=== PATIENT | male | born 1950 | race Caucasian/White ===

== ENCOUNTER 2016-10-31 12:51 | Inpatient (IN) ==
[2016-10-31] MEDS ORDERED: Aspirin 325 MG TABLET PO ONE (12:52)
--- NOTE | 2016-10-31 12:56 | Emergency Department Note ---
Disposition Clinical Impression: Atrial fibrillation Qualifiers: Atrial fibrillation type: persistent Qualified Code(s): I48.1 - Persistent atrial fibrillation Disposition: Admitted As Inpatient Condition: Fair Referrals: NO,PCP [Non-Partnered Physician] - Time of Disposition: 15:23 Arrhythmia/Palpitations HPI - General Chief Complaint: ED Shortness of Breath/Dyspnea Stated Complaint: palpitations Time Seen by Provider: 10/31/16 12:51 Source: patient, family Mode of arrival: wheelchair Limitations: no limitations Nursing Notes Reviewed: Yes Vital Signs Reviewed: Yes - History of Present Illness HPI Narrative: Patient presents to the ED with the chief complaint of dyspnea and palpitations. Patient has no known history of atrial fibrillation states he woke up this morning and felt very short of breath. He went into his primary care physician' s office, who performed an EKG and noticed he was in A. fib. They wanted to send him to the hospital via EMS. However, he declined and states that he would go himself if his symptoms get worse. States that he went home and she continued to fill extremely short of breath like he could not catch his breath at all and decided to come in. He denies any chest pain but states that he was having some burning type sensation in his chest. - Related Data Home Medications Medication Instructions Recorded Confirmed Albuterol Sulfate [Albuterol 2 puff IH Q4H PRN 03/01/16 10/31/16 Inhaler] Aspirin [Lo-Dose Aspirin EC] 81 mg PO DAILY 03/01/16 10/31/16 Indapamide [Lozol] 2.5 mg PO DAILY 03/01/16 10/31/16 Propranolol [Inderal] 20 mg PO TID 03/01/16 10/31/16 Sertraline [Zoloft] 25 mg PO DAILY 03/01/16 10/31/16 Allopurinol [Zyloprim] 300 mg PO DAILY 10/31/16 10/31/16 Chlorphen/Pseudoeph/Ibuprofen 1 tab PO BID PRN 10/31/16 10/31/16 [Advil Allergy Sinus Caplet] Ibuprofen [Motrin] 600 mg PO Q6HR PRN 10/31/16 10/31/16 Montelukast [Singulair] 10 mg PO DAILY 10/31/16 10/31/16 Potassium Chloride [Klor-Con 10] 10 meq PO DAILY 10/31/16 10/31/16 Trazodone HCl 100 mg PO HS PRN 10/31/16 10/31/16 Allergies Allergy/AdvReac Type Severity Reaction Status Date / Time cephalexin [From Keflex] Allergy Swelling Verified 03/01/16 08:46 of Lip/Tongue/Throat acetaminophen [From Tylenol] AdvReac See Verified 03/01/16 08:46 Comments All systems ED: reviewed and negative except as stated. Eyes: Denies: vision change Cardiovascular: Reports: chest pain, palpitations, dyspnea on exertion Respiratory: Reports: dyspnea Gastrointestinal: Reports: nausea. Denies: abdominal pain, vomiting Integumentary: Denies: rash Neurological: Denies: headache Past Medical History - Past Medical History Attestation: Yes The following information was validated with the patient. Source: patient Medical history: Reports: asthma, hypertension Psychiatric history: Reports: no psych history - Social History Smoking Status: Former smoker Smokeless Tobacco Status: Yes Alcohol use: Reports: none Drug use: Reports: none Physical Exam - General Limitations: no limitations General appearance: alert, in distress (mild, appears SOB) - Head Head exam: atraumatic, normocephalic, normal inspection - Eye Eye exam: Present: normal appearance, PERRL, EOMI - ENT ENT exam: normal exam, normal oropharynx, mucous membranes moist - Neck Neck exam: Present: normal inspection, full ROM, trachea midline - Chest Chest inspection: Present: normal inspection, symmetric chest wall rise - Respiratory Respiratory exam: Present: normal lung sounds bilaterally. Absent: respiratory distress (but is tachypnic ) - Cardiovascular Cardiovascular exam: Present: tachycardia, irregular rhythm, normal heart sounds. Absent: regular rate, normal rhythm - Abdominal Exam Abdominal exam: Present: soft, Non-Tender. Absent: tenderness, distention, guarding, rebound, rigidity - Extremities Exam Extremities exam: Present: normal inspection, full ROM. Absent: tenderness, pedal edema - Neurological Exam Neurological exam: Present: alert, oriented X3 - Psychiatric Psychiatric exam: Present: anxious - Skin Skin exam: Present: warm, dry, intact, normal color Course - Reevaluation(s) Reevaluation #1: Lab work is back. D-dimer was elevated, so we ordered a CTA to rule out PE given his fast respiratory rate. CT is negative for PE. Did show pulmonary nodule. Patient admitted. The hospitalist service for new onset A. fib. Vital Signs Temperature 98.1 F 10/31/16 12:52 Pulse Rate 85 10/31/16 12:52 Respiratory Rate 18 10/31/16 12:52 Blood Pressure 139/94 10/31/16 12:52 O2 Sat by Pulse Oximetry 98 10/31/16 12:52 Temperature 98.1 F 10/31/16 12:52 Pulse Rate 95 10/31/16 14:54 Respiratory Rate 16 10/31/16 14:54 Blood Pressure 100/89 10/31/16 14:54 O2 Sat by Pulse Oximetry 99 10/31/16 14:54 Oxygen Delivery Oxygen Delivery Room Air Arrhythmia/Palpitations - Medical Records Medical records reviewed: Yes I reviewed the patient's medical records. - Lab Data Lab results reviewed: Yes I reviewed the patient's lab results. Result diagrams: 10/31/16 13:00 10/31/16 13:00 Lab Results 10/31/16 10/31/16 10/31/16 Range/Units 13:00 13:00 13:00 WBC 9.8 (4.3-11.1) K/mcL RBC 5.02 (4.19-5.50) M/mcL Hgb 15.7 (12.9-16.9) g/dL Hct 44.4 (37.5-50.1) % MCV 88.4 (83.0-100.0) fL MCH 31.3 (28.0-33.3) pg MCHC 35.4 (31.6-35.5) g/dL RDW 14.2 (11.5-14.5) % Plt Count 241 (140-400) K/mcL MPV 11.8 (9.4-12.4) fL Immature Gran % 0.3 (0-4) % Seg Neutrophils % 64.7 % Lymphocytes % 27.9 % Monocytes % 5.6 % Eosinophils % 1.1 % Basophils % 0.4 % Neutrophils # 6.3 (1.6-8.9) K/mcL Lymphocytes # 2.7 (0.6-4.6) K/mcL Monocytes # 0.6 (0.0-1.3) K/mcL Eosinophils # 0.1 (0.0-0.6) K/mcL Basophils # 0.0 (0.0-0.2) K/mcL PT 11.1 (9.4-12.1) Seconds INR 1.0 APTT 31.9 (26.0-36.0) Seconds D-Dimer 682 H (0-500) ng/mLFEU Sodium (136-145) mEq/L Potassium (3.5-4.5) mEq/L Chloride (98-109) mEq/L Carbon Dioxide (19-29) mEq/L BUN (8-26) mg/dL Creatinine (0.72-1.25) mg/dL Est GFR ( Amer) (> 60) Est GFR (Non-Af Amer) (> 60) BUN/Creatinine Ratio (6-26) Glucose (70-99) mg/dL Calculated Osmolality (280-300) Calcium (8.6-10.8) mg/dL Magnesium (1.6-2.6) mg/dL Troponin I (0-0.03) ng/mL TSH (0.350-4.840) mcIU/mL Thyroxine (T4) (4.87-11.72) mcg/dL Total T3 (0.58-1.59) ng/mL 10/31/16 10/31/16 Range/Units 13:00 13:00 WBC (4.3-11.1) K/mcL RBC (4.19-5.50) M/mcL Hgb (12.9-16.9) g/dL Hct (37.5-50.1) % MCV (83.0-100.0) fL MCH (28.0-33.3) pg MCHC (31.6-35.5) g/dL RDW (11.5-14.5) % Plt Count (140-400) K/mcL MPV (9.4-12.4) fL Immature Gran % (0-4) % Seg Neutrophils % % Lymphocytes % % Monocytes % % Eosinophils % % Basophils % % Neutrophils # (1.6-8.9) K/mcL Lymphocytes # (0.6-4.6) K/mcL Monocytes # (0.0-1.3) K/mcL Eosinophils # (0.0-0.6) K/mcL Basophils # (0.0-0.2) K/mcL PT (9.4-12.1) Seconds INR APTT (26.0-36.0) Seconds D-Dimer (0-500) ng/mLFEU Sodium 138 (136-145) mEq/L Potassium 3.1 L (3.5-4.5) mEq/L Chloride 101 (98-109) mEq/L Carbon Dioxide 26 (19-29) mEq/L BUN 19 (8-26) mg/dL Creatinine 1.11 (0.72-1.25) mg/dL Est GFR ( Amer) > 60 (> 60) Est GFR (Non-Af Amer) > 60 (> 60) BUN/Creatinine Ratio 17 (6-26) Glucose 104 H (70-99) mg/dL Calculated Osmolality 289 (280-300) Calcium 10.6 (8.6-10.8) mg/dL Magnesium 1.8 (1.6-2.6) mg/dL Troponin I 0.01 (0-0.03) ng/mL TSH 6.166 H (0.350-4.840) mcIU/mL Thyroxine (T4) 4.92 (4.87-11.72) mcg/dL Total T3 1.34 (0.58-1.59) ng/mL - Radiology Data Radiology results reviewed: Yes I reviewed the patient's radiology results. - EKG Data EKG attestation: Yes I reviewed and interpreted this EKG. EKG results narrative: A. fib with RVR, rate 114, QRS 90, QTC 409, normal axis, no acute ischemic changes, similar morphology to an EKG performed earlier today at PCPs office. No previous available. Eve.Kaleigh - Ayo Situation: Demographics, MOA Background: Presenting Complaint, Relevant PMH, Meds, & Allergies Assessment: Vital Signs, Course and respsone to treatment, Exam Concerns, Patient/Family Expectation, Pertinant Lab Results, Outstanding Labs Recommendation: Recommendation based on pending studies, treatments, or consults SNuha Report Given to: Dr. Drew Rollins Repor Time: 15:23 Attestation Statement - Attestation Attestation: I examined this patient and my medical decision-making was reviewed with the PROJECT ASST/PA/Advanced Practice Nurse/Resident Physician. I agree with the documented findings, disposition and treatment plan as described except to the extent set forth below. [id number] time provided Patient complains of palpitations. Irregularly irregular rhythm identified on EKG. Patient hard of hearing but appears in no acute distress. Patient seen and evaluated in conjunction with the resident physician Dr. Banks
[2016-10-31 13:10] LABS: Basophils % 0.4 %; Eosinophils # 0.1 K/mcL (0.0-0.6); Eosinophils % 1.1 %; Hematocrit 44.4 % (37.5-50.1); Hemoglobin 15.7 g/dL (12.9-16.9); Immature Granulocytes % 0.3 % (0-4); Lymphocytes # 2.7 K/mcL (0.6-4.6); Lymphocytes % 27.9 %; Mean Corpuscular HGB Conc 35.4 g/dL (31.6-35.5); Mean Corpuscular Hemoglobin 31.3 pg (28.0-33.3); Mean Corpuscular Volume 88.4 fL (83.0-100.0); Mean Platelet Volume 11.8 fL (9.4-12.4); Monocytes # 0.6 K/mcL (0.0-1.3); Monocytes % 5.6 %; Neutrophils # 6.3 K/mcL (1.6-8.9); Platelet Count 241 K/mcL (140-400); Red Blood Count 5.02 M/mcL (4.19-5.50); Red Cell Distribution Width 14.2 % (11.5-14.5); Segmented Neutrophils % 64.7 %
[2016-10-31 13:15] LABS: Prothrombin Time 11.1 Seconds (9.4-12.1)
[2016-10-31 13:18] LABS: Activated Partial Thrombo Time 31.9 Seconds (26.0-36.0)
[2016-10-31 13:26] LABS: BUN/Creatinine Ratio 17 (6-26); Blood Urea Nitrogen 19 mg/dL (8-26); Calcium 10.6 mg/dL (8.6-10.8); Carbon Dioxide 26 mEq/L (19-29); Chloride 101 mEq/L (98-109); Glucose 104 mg/dL (70-99); Magnesium 1.8 mg/dL (1.6-2.6); Osmolality,Calculated 289 (280-300); Potassium 3.1 mEq/L (3.5-4.5); Sodium 138 mEq/L (136-145); eGFR For African Americans > 60 (> 60); eGFR For Non-African Americans > 60 (> 60)
[2016-10-31 13:45] LABS: Thyroid Stimulating Hormone 6.166 mcIU/mL (0.350-4.840)
[2016-10-31 14:35] LABS: Triiodothyronine (T3) Total 1.34 ng/mL (0.58-1.59)
[2016-10-31] MEDS ORDERED: Naloxone 0.4 MG/ML INJ IVP PRN (16:35)
[2016-10-31] MEDS ORDERED: Potassium Chloride Elixir 20 MEQ/15 ML UDC PO ONE (16:40)
--- NOTE | 2016-10-31 16:46 | Internal Med History&Physical ---
Date of Encounter: 10/31/16 Time of Encounter: 16:41 Assessment and Plan (1) Atrial fibrillation Current visit: Yes Status: Acute New onset; ?due to recent steroid use/underlying asthma; received a dose of 15mg IV Cardizem push in ER; currently on IV Cardizem drip, continue and titrate to maintain HR 90-110; goal to wean off and continue oral CCBs and beta- blockers; Echocardiogram from 01/2016 shows preserved EF, mild LV diastolic dysfunction, mitral valve prolapse; will repeat Echocardiogram; CHADS-vasc score is 2, low risk for stroke, will hold off on anticoagulation for now; Cardiology consult as needed; monitor closely; risk of complications- high; TSH noted to be elevated, will check free T4; D-dimer noted to be elevated but CTA chest showed no e/o- PE; Qualifiers: Atrial fibrillation type: paroxysmal Qualified Code(s): I48.0 - Paroxysmal atrial fibrillation (2) Essential hypertension Current visit: Yes Status: Chronic BP noted to be well-controlled; continue home meds; (3) BPH (benign prostatic hyperplasia) Current visit: Yes Status: Chronic not on meds at this time; continue to monitor; Qualifiers: Prostatic enlargement morphology: unspecified morphology Lower urinary tract symptom presence: symptoms present Qualified Code(s): N40.1 - Benign prostatic hyperplasia with lower urinary tract symptoms (4) Asthma Current visit: Yes Status: Chronic continue Singulair and PRN bronchodilators; supplemental O2 as needed; Qualifiers: Asthma severity: mild intermittent Asthma complication type: uncomplicated Qualified Code(s): J45.20 - Mild intermittent asthma, uncomplicated (5) Depression Current visit: Yes Status: Chronic continue home meds; Qualifiers: Depression Type: unspecified Qualified Code(s): F32.9 - Major depressive disorder, single episode, unspecified Internal Medicine - H&P: HPI Chief complaint: shortness of breath, palpitations Admitted From: Emergency Dept Plans for Post Hospital Care: Home History of present illness: Mr. Gonzales is a 66 year old male with history of hypertension and asthma, presents with three-day history of shortness of breath and palpitations. patient presented with these complaints to his primary care doctor's office and was referred to the ER for further evaluation. He started getting short of breath, even at rest, associated with palpitations, chest discomfort and burning pain. No syncope, dizziness, leg swelling or orthopnea or cough. He does have h/o- asthma and recently completed 2 courses of steroids and antibiotics for bronchitis. Of note, he had episodes of syncope last year and underwent nuclear stress testing which was negative for ischemia and EP studies , which showed no significant arrhythmia. Past Med Surg Social Fam HX - Past Medical History Medical history: asthma, hypertension Psychiatric history: depression - Past Surgical History Surgical History: no surgical history - Social History Smoking Status: Former smoker (quit 40years ago) Smokeless Tobacco Status: Yes Alcohol use: none, occasionally Drug use: none Occupational status: retired Current living situation: Home, With Family Activity Level: Independent ambulation Recent Out of Country Travel Within the Last 8 Weeks: No Exposure or Possible Exposure to Illness During Travel: No - Family History Mother Hx Family Cardiac Disorders: Yes (CAD) Hx Family Cancer: Yes (colon cancer) Hx Family Endocrine Disorder: Yes (DM) Internal Medicine - H&P: Meds Albuterol Sulfate [Albuterol Inhaler] 2 puff IH Q4H PRN 03/01/16 [History] Aspirin [Lo-Dose Aspirin EC] 81 mg PO DAILY 03/01/16 [History] Indapamide [Lozol] 2.5 mg PO DAILY 03/01/16 [History] Propranolol [Inderal] 20 mg PO TID 03/01/16 [History] Sertraline [Zoloft] 25 mg PO DAILY 03/01/16 [History] Allopurinol [Zyloprim] 300 mg PO DAILY 10/31/16 [History] Chlorphen/Pseudoeph/Ibuprofen [Advil Allergy Sinus Caplet] 1 tab PO BID PRN 09/14 [History] Ibuprofen [Motrin] 600 mg PO Q6HR PRN 10/31/16 [History] Montelukast [Singulair] 10 mg PO DAILY 10/31/16 [History] Potassium Chloride [Klor-Con 10] 10 meq PO DAILY 10/31/16 [History] Trazodone HCl 100 mg PO HS PRN 10/31/16 [History] Allergies cephalexin [From Keflex] Allergy (Verified 03/01/16 08:46) Swelling of Lip/Tongue/Throat acetaminophen [From Tylenol] Adverse Reaction (Verified 03/01/16 08:46) See Comments "It effects my liver" All Systems PM: A 10-system review of systems was performed and is negative for pertinent findings except as documented above in the HPI. - Constitutional Constitutional: no chills, no fever(s), no night sweats - EENT Eyes: no change in vision, no discharge, no pain, no photophobia Ears: decreased hearing, no ear discharge, no ear pain, no tinnitus Nose, mouth and throat: no dysphagia, no nasal discharge, no neck pain, no sore throat - Cardiovascular Cardiovascular ROS IM: chest pain, dyspnea, dyspnea on exertion - Respiratory Respiratory: dyspnea - Gastrointestinal Gastrointestinal: no abdominal pain, no diarrhea, no hematemesis, no hematochezia, no melena, no nausea, no vomiting - Musculoskeletal Musculoskeletal ROS IM: no numbness, no tingling - Integumentary Integumentary IM: no rash, no unusual bruising - Neurological Neurological ROS: no confusion, no convulsions, no focal weakness, no numbness, no tingling, no tremor(s) - Hematologic/Lymphatic Hematologic/Lymphatic: no easy bruising - Constitutional Vitals: Temp Pulse Resp BP Pulse Ox 97.7 F 80 16 119/73 96 10/31/16 16:18 10/31/16 16:18 10/31/16 16:18 10/31/16 16:18 10/31/16 16:18 General appearance: Present: A&O X 3, answers questions appropriately - Head Head exam: Present: atraumatic, normocephalic - ENT Additional comments: hearing loss B/L - Neck Neck exam general surgery: Present: supple, trachea midline. Absent: lymphadenopathy - Respiratory Respiratory exam: Present: CTAB. Absent: accessory muscle use, rales, rhonchi, wheezes - Cardiovascular Cardiovascular exam: Present: irregular rhythm, +S1, +S2, tachycardia. Absent: diastolic murmur, gallop, rubs, systolic murmur - GI/Abdominal GI/Abdominal exam: Present: normal bowel sounds, soft (obese), no peritoneal signs. Absent: distended, tenderness - Extremities Exam Extremities exam: Present: full ROM, warm, radial pulses palpable and symetrical. Absent: calf tenderness, cyanotic, pedal edema - Neurological Exam Neurological exam: Present: CN II-XII intact, oriented X3, no focal deficits. Absent: pronater drift, facial droop, speech deficit - Skin Skin exam: Present: dry, intact Internal Med - H&P Results - Labs CBC & Chem 7: 10/31/16 13:00 10/31/16 13:00 - EKG Data -: EKG Interpreted by Myself Rate: tachycardia - EKG Data EKG comments: 10/31/16 16:49 atrial fibrillation at 114bpm - Diagnostic Studies Chest x-ray Status: image reviewed by me Additional comments: clear lung morris
[2016-10-31] MEDS: traZODone 50 MG TABLET PO PRN (20:41)
[2016-10-31] MEDS: *HR* Heparin 5,000 UNIT/ML VIAL SQ SCH (23:18)
[2016-11-01 01:20] LABS: Basophils % 0.4 %; Eosinophils # 0.2 K/mcL (0.0-0.6); Eosinophils % 2.6 %; Hematocrit 39.1 % (37.5-50.1); Immature Granulocytes % 0.2 % (0-4); Lymphocytes # 3.1 K/mcL (0.6-4.6); Lymphocytes % 36.5 %; Mean Corpuscular Hemoglobin 31.9 pg (28.0-33.3); Mean Corpuscular Volume 91.1 fL (83.0-100.0); Monocytes # 0.5 K/mcL (0.0-1.3); Monocytes % 5.5 %; Neutrophils # 4.6 K/mcL (1.6-8.9); Platelet Count 191 K/mcL (140-400); Red Blood Count 4.29 M/mcL (4.19-5.50); Red Cell Distribution Width 14.5 % (11.5-14.5); Segmented Neutrophils % 54.8 %
[2016-11-01 01:21] LABS: Hemoglobin 13.7 g/dL (12.9-16.9)
[2016-11-01 01:35] LABS: BUN/Creatinine Ratio 18 (6-26); Blood Urea Nitrogen 19 mg/dL (8-26); Calcium 9.7 mg/dL (8.6-10.8); Carbon Dioxide 30 mEq/L (19-29); Chloride 102 mEq/L (98-109); Chol/HDL Ratio 5.7 (0-4.9); Cholesterol 166 mg/dL (< 200); Glucose 124 mg/dL (70-99); HDL Cholesterol 29 mg/dL (40-59); LDL Cholesterol,Calculated 103 mg/dL (0-99); Magnesium 1.8 mg/dL (1.6-2.6); Osmolality,Calculated 296 (280-300); Phosphorous 4.4 mg/dL (2.3-4.7); Potassium 3.4 mEq/L (3.5-4.5); Sodium 141 mEq/L (136-145); Triglycerides 171 mg/dL (< 150); eGFR For African Americans > 60 (> 60); eGFR For Non-African Americans > 60 (> 60)
[2016-11-01] MEDS: *HR* Heparin 5,000 UNIT/ML VIAL SQ SCH (08:54)
[2016-11-01] MEDS: Aspirin Enteric Coated 81 MG Tablet PO SCH (08:54)
--- NOTE | 2016-11-01 10:30 | Electrocardiograph Report ---
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
[2016-11-01] MEDS ORDERED: Potassium Chloride Elixir 20 MEQ/15 ML UDC PO ONE (11:55)
[2016-11-01] MEDS ORDERED: *HR* Metoprolol 5 MG/5 ML VIAL IVP ONE (11:56)
--- NOTE | 2016-11-01 12:51 | Cardiology Consult Note ---
<Kwan Matias R - Last Filed: 11/01/16 13:28> Date of Encounter: 11/01/16 Time of Encounter: 12:46 Assessment and Plan (1) Atrial fibrillation Current Visit: Yes Status: Acute New onset A-Fib/Flutter. There was a spontaneous episode of A-Flutter on EP study 03/2016 that spontaneously terminated, not thought to be significant at that time. Symptomatic with palpitations, dyspnea and chest pain. Troponins negative x 4. Symptoms have improved. Only currently complaint is occasional palpitations. Currently HR not well controlled--80s-1teens. Was on Cardizem gtt at 5mg/hr until last night when RN stopped gtt after BB (Propanolol) was given. BP currently 116/83. Will start Cardizem CD 120mg daily. Will discuss with pt if there is any specific indication for being on Propanolol. Will consider weaning off if no indication for being on it. Recently diagnosed JO with CPAP prescribed. TSH 6.166. Primary team to address. T3 and T4 normal. K 3.4-will replace. Mag 1.8. Echo 01/2016 showed preserved EF 55%, mild LV diastolic dysfunction, mitral valve prolapse with mild-moderate MR. Negative stress test 01/2016. Recheck Echo. CHADSVASC score is 2 for age and HTN. 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 Will await echo results to assess mitral valve before we determine if he is candidate for NOAC or Coumadin only. Will start therapeutic Lovenox for now. Qualifiers: Atrial fibrillation type: paroxysmal Qualified Code(s): I48.0 - Paroxysmal atrial fibrillation (2) Essential hypertension Current Visit: Yes Status: Chronic Adding Cardizem CD 120mg daily. Will consider weaning Propanolol. (3) JO (obstructive sleep apnea) Current Visit: Yes Status: Acute Recently diagnosed. Recommend CPAP compliance. Discussion w patient/family: The assessment and plan as outlined above was discussed with the patient and/or family members who expressed understanding and agreement. All questions were answered. Thank you for involving us in the care of your patient. Please call with any questions. I will discuss all the above with Dr. Pruett and make changes as necessary. History of Present Illness Consult date: 11/01/16 Requesting physician: Donna Coleman Consult reason: A-Fib Chief complaint: palpitations History of present illness: Mr. Gonzales is a 66 year old male with PMH of hypertension, recent diagnosed JO on CPAP, and asthma, presents with 3-4 day history of shortness of breath, palpitations, and intermittent chest pain described as burning in nature. He presented with these complaints to his PCP office yesterday and was found to be in A-fib, referred to the ER for further evaluation. One EKG shows A-Flutter, the other appears to be A-Fib. He recently completed 2 courses of steroids and antibiotics for bronchitis. He denies any dizziness, syncope, lower extremity edema. He reports feeling much better today, just with occasional palpitations. He did have an episode of syncope last year and underwent an exercise nuclear stress testing which was negative for ischemia or infarct. He also had an EP study, which was normal aside from episode of typical spontaneous A-Flutter that spontaneously terminated, not thought to be clinically significant. Echo 2015 EF was 55%, mild diastolic dysfunction, mild prolapsing of posterior MV leaflets with mild-moderate MR. K 3.4, Mag 1.8, TSH 6.166. CXR no acute findings and chest CT negative for PE. Past Med Surg Social Fam HX - Past Medical History Medical history: asthma, hypertension Psychiatric history: depression - Past Surgical History Surgical History: no surgical history - Social History Smoking Status: Former smoker (quit 40years ago) Smokeless Tobacco Status: Yes Alcohol use: none, occasionally Drug use: none - Family History Mother Hx Family Cardiac Disorders: Yes (CAD) Hx Family Cancer: Yes (colon cancer) Hx Family Endocrine Disorder: Yes (DM) Medications and Allergies Albuterol Sulfate [Albuterol Inhaler] 2 puff IH Q4H PRN 03/01/16 [History] Aspirin [Lo-Dose Aspirin EC] 81 mg PO DAILY 03/01/16 [History] Indapamide [Lozol] 2.5 mg PO DAILY 03/01/16 [History] Propranolol [Inderal] 20 mg PO TID 03/01/16 [History] Sertraline [Zoloft] 25 mg PO DAILY 03/01/16 [History] Allopurinol [Zyloprim] 300 mg PO DAILY 10/31/16 [History] Chlorphen/Pseudoeph/Ibuprofen [Advil Allergy Sinus Caplet] 1 tab PO BID PRN 09/14 [History] Ibuprofen [Motrin] 600 mg PO Q6HR PRN 10/31/16 [History] Montelukast [Singulair] 10 mg PO DAILY 10/31/16 [History] Potassium Chloride [Klor-Con 10] 10 meq PO DAILY 10/31/16 [History] Trazodone HCl 100 mg PO HS PRN 10/31/16 [History] Allergies cephalexin [From Keflex] Allergy (Verified 03/01/16 08:46) Swelling of Lip/Tongue/Throat acetaminophen [From Tylenol] Adverse Reaction (Verified 03/01/16 08:46) See Comments "It effects my liver" All Systems Review: A 10-system review of systems was performed and is negative for pertinent findings except as documented above in the HPI. - Cardiovascular Cardiovascular: as per HPI, chest pain at rest, dyspnea at rest, dyspnea on exertion, irregular heart rhythm, palpitations - Respiratory Respiratory: dyspnea Physical Examination Vital Signs, Last 4 Hours Temp Pulse Resp BP Pulse Ox 11/01/16 11:59 97.9 F 97 18 98/67 97 Vital Signs Temp Pulse Resp BP Pulse Ox 11/01/16 11:59 97.9 F 97 18 98/67 97 11/01/16 08:11 97.6 F 106 18 117/80 94 11/01/16 04:26 97.9 F 110 16 102/77 96 10/31/16 23:58 97.5 F L 107 15 108/73 95 10/31/16 20:35 98.2 F 95 17 118/86 96 10/31/16 16:37 99 10/31/16 16:18 97.7 F 80 16 119/73 96 10/31/16 15:41 16 104/72 10/31/16 14:54 95 16 100/89 99 Intake and Output 10/31/16 11/01/16 11/01/16 23:59 07:59 15:59 Intake Total 100 / 100 400 / 400 360 / 360 Output Total 0 / 0 Balance 100 / 100 400 / 400 360 / 360 Intake: Oral 100 / 100 400 / 400 360 / 360 Output: Urine 0 / 0 Other: Meal Breakfast Percent of Meal Consumed 100% Stool Size Moderate # Voids 1 1 # Bowel Movements 1 Weight 89.3 kg 90.3 kg Patient Weight 11/01/16 23:59 Weight 90.3 kg General: Conversant, No Apparent Distress HEENT: Atraumatic, Normocephaly, Mucus Membranes Moist Neck: No JVD, Normal carotid pulses Cardiac: Other (irregularly irregular) Lungs: Normal Breath Sounds, No Wheeze, Rales, Rhonchi Neuro: Alert and responsive, No focal deficits noted Abdomen: Soft, Non-Tender Skin: No rashes noted on visualized skin Musculoskeletal: No Chest Wall Tenderness Extremities: No Clubbing, No Cyanosis, No Edema, Normal Pulses Results 11/01/16 01:09 11/01/16 01:09 Lab Results 10/31/16 11/01/16 11/01/16 19:31 01:09 01:09 WBC 8.4 Hgb 13.7 D Hct 39.1 Plt Count 191 Sodium Potassium Chloride Carbon Dioxide BUN Creatinine Glucose Calcium Magnesium Troponin I 0.00 0.00 11/01/16 11/01/16 01:09 06:32 WBC Hgb Hct Plt Count Sodium 141 Potassium 3.4 L Chloride 102 Carbon Dioxide 30 H BUN 19 Creatinine 1.07 Glucose 124 H Calcium 9.7 Magnesium 1.8 Troponin I 0.00 Short CBC 11/01/16 10/31/16 Range/Units 01:09 13:00 WBC 8.4 9.8 (4.3-11.1) K/mcL Hgb 13.7 D 15.7 (12.9-16.9) g/dL Hct 39.1 44.4 (37.5-50.1) % Plt Count 191 241 (140-400) K/mcL Neutrophils # 4.6 6.3 (1.6-8.9) K/mcL BMP 11/01/16 10/31/16 Range/Units 01:09 13:00 Sodium 141 138 (136-145) mEq/L Potassium 3.4 L 3.1 L (3.5-4.5) mEq/L Chloride 102 101 (98-109) mEq/L Carbon Dioxide 30 H 26 (19-29) mEq/L BUN 19 19 (8-26) mg/dL Creatinine 1.07 1.11 (0.72-1.25) mg/dL Glucose 124 H 104 H (70-99) mg/dL Calcium 9.7 10.6 (8.6-10.8) mg/dL Cardiac Enzymes 11/01/16 11/01/16 10/31/16 Range/Units 06:32 01:09 19:31 Troponin I 0.00 0.00 0.00 (0-0.03) ng/mL 10/31/16 Range/Units 13:00 Troponin I 0.01 (0-0.03) ng/mL Impressions Chest X-Ray 10/31/16 12:53 IMPRESSION: No evidence for acute cardiopulmonary process. D/ / Stephen Max MD / Stephen Max MD Interpreting Provider: Stephen Max MD Chest CTA 10/31/16 13:31 IMPRESSION: No pulmonary embolus is identified. 2.5 mm nodule in the right lower lobe. If there are no risk factors, no follow-up may be necessary. Otherwise follow-up CT chest is recommended in 12 months. More detailed guidelines are placed below for reference. Mild bronchial wall thickening. This is nonspecific for acute or chronic inflammation. Fleischner Society guidelines for follow-up and management of incidentally detected pulmonary nodules: Single Solid Nodule: Nodule size less than 6 mm In a low-risk patient, no routine follow-up. In a high-risk patient, optional CT at 12 months. - Low risk patients include individuals with minimal or absent history of smoking and other known risk factors. - High risk patients include individuals with a history or smoking or known risk factors. Radiology 2017 http://pubs.rsna.org/doi/full/10.1148/radiol.5223091880 D/ / Caleb Jara MD / Caelb Jara MD Interpreting Provider: Caleb Jara MD Active Medications Albuterol Sulfate (Albuterol Inhaler) 2 puff IH Q4H PRN PRN Reason: Shortness Of Breath Stop: 05/02/17 16:38 Allopurinol (Zyloprim) 300 mg PO DAILY [facility] Stop: 05/03/17 09:01 Last Admin: 11/01/16 08:54 Dose: 300 mg Aspirin (Aspirin Ec) 81 mg PO DAILY [facility] Stop: 05/03/17 09:01 Last Admin: 11/01/16 08:54 Dose: 81 mg Calcium Carbonate (Tums) 1,000 mg PO Q4HR PRN; Protocol PRN Reason: Heartburn Stop: 05/02/17 20:30 Last Admin: 10/31/16 20:41 Dose: 1,000 mg Heparin Sodium (Porcine) (Heparin) 5,000 unit SQ Q8HR [facility] Stop: 05/03/17 00:01 Last Admin: 11/01/16 08:54 Dose: 5,000 unit Diltiazem HCl 125 mg/ Dextrose 125 mls @ 5 mls/hr IVC .Q24H PAOLA PRN Reason: 5 MG/HR Stop: 05/02/17 14:46 Indapamide (Lozol) 2.5 mg PO DAILY [facility] Stop: 05/03/17 09:01 Last Admin: 11/01/16 08:54 Dose: 2.5 mg Montelukast Sodium (Singulair) 10 mg PO DAILY [facility] Stop: 05/03/17 09:01 Last Admin: 11/01/16 08:54 Dose: 10 mg Naloxone HCl (Narcan) 0.4 mg IVP Q2MIN PRN PRN Reason: Opioid Reversal Stop: 05/02/17 16:36 Omeprazole (Prilosec) 20 mg PO DAILY@0630 [facility] PRN Reason: Protocol Stop: 05/03/17 06:31 Last Admin: 11/01/16 05:00 Dose: 20 mg Potassium Chloride (Potassium Chloride) 20 meq PO DAILY [facility] Stop: 05/04/17 09:01 Propranolol HCl (Inderal) 20 mg PO TID [facility] Stop: 05/02/17 21:01 Last Admin: 11/01/16 08:54 Dose: 20 mg Sertraline HCl (Zoloft) 25 mg PO DAILY [facility] Stop: 05/03/17 09:01 Last Admin: 11/01/16 08:54 Dose: 25 mg Trazodone HCl (Trazodone) 100 mg PO HS PRN PRN Reason: Sleep Last Admin: 10/31/16 20:41 Dose: 100 mg - Imaging and Cardiology Chest Xray: report reviewed Stress Test: report reviewed Echo: pending, report reviewed - EKG Interpretation EKG results cardiology: personally reviewed (A-Fib RVR, A-Flutter), other (24 hour tele AVG HR 101, A-Fib.) Consult Discharge Plan - Plan Referrals: Ines Ramirez PARISH WORKER [Primary Care Provider] - 11/05/16 9:00 am <Gabrielle Pruett - Last Filed: 11/01/16 16:37> Date of Encounter: 11/01/16 Assessment and Plan Discussion w patient/family: The assessment and plan as outlined above was discussed with the patient and/or family members who expressed understanding and agreement. All questions were answered. Thank you for involving us in the care of your patient. Please call with any questions. History of Present Illness History of present illness: Mr. Gonzales is a 66 year old male All Systems Review: A 10-system review of systems was performed and is negative for pertinent findings except as documented above in the HPI. Physical Examination Vital Signs, Last 4 Hours Temp Pulse Resp BP Pulse Ox 11/01/16 15:00 97.5 F L 107 18 126/88 97 Results 11/01/16 01:09 11/01/16 01:09 Lab Results 10/31/16 11/01/16 11/01/16 19:31 01:09 01:09 WBC 8.4 Hgb 13.7 D Hct 39.1 Plt Count 191 Sodium Potassium Chloride Carbon Dioxide BUN Creatinine Glucose Calcium Magnesium Troponin I 0.00 0.00 11/01/16 11/01/16 01:09 06:32 WBC Hgb Hct Plt Count Sodium 141 Potassium 3.4 L Chloride 102 Carbon Dioxide 30 H BUN 19 Creatinine 1.07 Glucose 124 H Calcium 9.7 Magnesium 1.8 Troponin I 0.00 - Attending Attestation I examined this patient and my medical decision-making was reviewed with the FOOD AND NUTRITION SERVICES ASSISTANT/PA/Advanced Practice Nurse/Resident Physician. I agree with the documented findings, disposition and treatment plan. Mr. Gonzales has newly discovered symptomatic AFIB/AFL. He was on cardizem drip being changed to PO. Otherwise, troponins are negative and he had a negative stress test in January of 2016. Echo this visit demonstrates normal LV function and no new changes when compared to prior echo. He also just recently started CPAP for JO. If heart rates do not normalize, may consider ODESSA/DCCV while hospitalized. Otherwise, can consider rate control and follow up as outpatient to determine if DCCV is appropriate after 30d of anticoagulation. He is being started on xarelto.
--- NOTE | 2016-11-01 12:57 | ECHO - Doppler Report ---
Echocardiogram Name: Ant Gonzales Date of Study: 11/01/2016 Date: 1950 Ht: 73.0 in Medical Record#: [id number] Age: 66 Wt: 199.0 lb Gender: Male BSA: 2.15 Order #: [id number] Location: [facility] Room #: [id number] Reading Physician: Yassine Riley MD, [facility] Repossession Agent: Jhoan Ward Ordering Physician: Catalina Coleman MD Primary Physician: Ines Ramirez CNP Indications: Afib Impressions: Normal LV systolic function, LVEF 55%. Mild concentric left ventricular hypertrophy. Indeterminate diastolic function due to atrial fibrillation. Normal right ventricular size and function. Mild bileaflet mitral valve prolapse. Mild-moderate mitral regurgitation. No evidence of pulmonary hypertension. Left Ventricular Wall Motion: Rest Echo Findings All wall segments showed normal motion. Findings: Study Quality * Suboptimal echo windows. ECG Findings * Atrial fibrillation. Left Ventricle * Normal LV systolic function, LVEF 55%. * Normal LV chamber size. * Mild concentric left ventricular hypertrophy. * Indeterminate diastolic function due to atrial fibrillation. Right Ventricle * Normal right ventricular size and function. Left Atrium * Normal left atrial size. Right Atrium * Normal right atrial size. Aorta * Normally sized aortic root. Pericardium * There is a trivial pericardial effusion present. IVC * The IVC is not well evaluated. Aortic Valve * Trileaflet aortic valve. * Mildly sclerotic aortic valve leaflets. * No aortic stenosis. * No aortic regurgitation. Mitral Valve * Mild mitral annular calcification * Mild bileaflet mitral valve prolapse. * No mitral stenosis. * Mild-moderate mitral regurgitation. Tricuspid Valve * Normal tricuspid valve structure. * No tricuspid stenosis. * Mild tricuspid regurgitation. * No evidence of pulmonary hypertension. Pulmonic Valve * Pulmonic valve not well visualized. * No pulmonic stenosis. * No pulmonic regurgitation. History Hypertension 01/31/2016 a Previous Echo was performed. Measurements: BP: 117/ 80 2D Normal Values RVIDd: 3.20 cm IVSd: 1.20 cm 0.6 - 1.0 cm LVIDd: 5.30 cm 3.7 - 5.6 cm LVPWd: 1.20 cm 0.6 - 1.1 cm LVIDs: 3.80 cm 1.5 - 3.6 cm AO: 3.20 cm < 4.0 cm LA volume: 67 Tricuspid Valve TV Regurg Peak Grad: 21.00mmHg TV Regurg Peak Dawson: 2.28m/sec Updated by Yassine Riley MD, [facility] on 11/01/2016 12:51:43 PM electronically signed on 11/01/2016 12:52:10 PM with status of Final Wall Motion Shaffer: 1=Normal, 2=Hypokinesis, 3=Akinesis, 4=Dyskinesis, 5=Aneurysmal, 6=Hyperkinetic, X=Not Visualized (Blank)=Missing
[2016-11-01] MEDS ORDERED: Diltiazem CD (24hr) 120 MG CAPSULE PO SCH (13:30)
--- NOTE | 2016-11-01 16:25 | Internal Med Progress Note ---
Date of Encounter: 11/01/16 Time of Encounter: 13:00 - Assessment and plan (1) Atrial fibrillation Current Visit: Yes Status: Acute Assessment and plan: New onset atrial fibrillation with rapid ventricular response. Continue telemetry monitoring. Heart rate noted to be between 90-120, occasionally to 130s. IV Cardizem drip has been discontinued last night and patient is currently on home dose of oral propranolol. Will consult cardiology for further recommendations including long-term anticoagulation. CHADS-Vasc score 2 ; will follow up echocardiogram. Supportive care. Qualifiers: Atrial fibrillation type: paroxysmal Qualified Code(s): I48.0 - Paroxysmal atrial fibrillation (2) Essential hypertension Current Visit: Yes Status: Chronic Assessment and plan: Blood pressure well controlled. Continue current medications. Low-sodium diet. (3) BPH (benign prostatic hyperplasia) Current Visit: Yes Status: Chronic Qualifiers: Prostatic enlargement morphology: unspecified morphology Lower urinary tract symptom presence: symptoms present Qualified Code(s): N40.1 - Benign prostatic hyperplasia with lower urinary tract symptoms (4) Asthma Current Visit: Yes Status: Chronic Qualifiers: Asthma severity: mild intermittent Asthma complication type: uncomplicated Qualified Code(s): J45.20 - Mild intermittent asthma, uncomplicated (5) Depression Current Visit: Yes Status: Chronic Qualifiers: Depression Type: unspecified Qualified Code(s): F32.9 - Major depressive disorder, single episode, unspecified (6) JO (obstructive sleep apnea) Current Visit: Yes Status: Chronic Assessment and plan: Recently diagnosed with obstructive sleep apnea and prescribed CPAP. Continue nocturnal CPAP. - Subjective Interval history: Improved shortness of breath, reports intermittent palpitations. No chest pain or leg swelling. Tolerates oral diet. - Constitutional Vitals: Temp Pulse Resp BP Pulse Ox 97.5 F L 107 18 126/88 97 11/01/16 15:00 11/01/16 15:00 11/01/16 15:00 11/01/16 15:00 11/01/16 15:00 General appearance: Present: A&O X 3, answers questions appropriately - Respiratory Respiratory exam: Present: CTAB. Absent: accessory muscle use, rales, rhonchi, wheezes - Cardiovascular Cardiovascular exam: Present: irregular rhythm, +S1, +S2, tachycardia. Absent: diastolic murmur, gallop, rubs, systolic murmur - GI/Abdominal GI/Abdominal exam: Present: normal bowel sounds, soft, no peritoneal signs. Absent: distended, tenderness - Extremities Exam Extremities exam: Present: full ROM, warm, radial pulses palpable and symetrical. Absent: calf tenderness, cyanotic, pedal edema - Neurological Exam Neurological exam: Present: CN II-XII intact, oriented X3, no focal deficits. Absent: pronater drift, facial droop, speech deficit Internal Medicine: Result - Labs CBC & Chem 7: 11/01/16 01:09 11/01/16 01:09 Labs: Short CBC 11/01/16 Range/Units 01:09 WBC 8.4 (4.3-11.1) K/mcL Hgb 13.7 D (12.9-16.9) g/dL Hct 39.1 (37.5-50.1) % Plt Count 191 (140-400) K/mcL Neutrophils # 4.6 (1.6-8.9) K/mcL BMP 11/01/16 01:09 Sodium 141 Potassium 3.4 L Chloride 102 Carbon Dioxide 30 H BUN 19 Creatinine 1.07 Glucose 124 H Calcium 9.7 Cardiac Enzymes 10/31/16 11/01/16 11/01/16 Range/Units 19:31 01:09 06:32 Troponin I 0.00 0.00 0.00 (0-0.03) ng/mL - ABG Interpretation ABG results: PT/INR, D-dimer PT 11.1 Seconds (9.4-12.1) 10/31/16 13:00 D-Dimer 682 ng/mLFEU (0-500) H 10/31/16 13:00 Consult Discharge Plan - Plan Referrals: Ines Ramirez SALES OPERATIONS LEAD [Primary Care Provider] - 11/05/16 9:00 am
[2016-11-01] MEDS: *HR* Rivaroxaban 10 MG TABLET PO SCH (17:37)
[2016-11-01] MEDS ORDERED: Warfarin perPT PO PRN (18:00)
[2016-11-01] MEDS ORDERED: *HR* Enoxaparin 100 MG/ML SYRINGE SQ SCH (18:00)
[2016-11-01] MEDS: traZODone 50 MG TABLET PO PRN (22:22)
[2016-11-02 01:27] LABS: Hematocrit 39.8 % (37.5-50.1); Hemoglobin 13.8 g/dL (12.9-16.9)
[2016-11-02 01:38] LABS: BUN/Creatinine Ratio 18 (6-26); Blood Urea Nitrogen 17 mg/dL (8-26); Calcium 9.5 mg/dL (8.6-10.8); Carbon Dioxide 27 mEq/L (19-29); Chloride 104 mEq/L (98-109); Glucose 100 mg/dL (70-99); Magnesium 1.5 mg/dL (1.6-2.6); Osmolality,Calculated 288 (280-300); Potassium 3.3 mEq/L (3.5-4.5); Sodium 138 mEq/L (136-145); eGFR For African Americans > 60 (> 60); eGFR For Non-African Americans > 60 (> 60)
[2016-11-02 03:27] LABS: Bilirubin,Urine Negative (Negative); Blood,Urine Large (Negative); Clarity,Urine Turbid (Clear); Color,Urine Red (Yellow); Glucose,Urine (UA) Normal (Normal); Ketones,Urine Negative (Negative); Leukocyte Esterase,Urine Trace (Negative); Nitrite,Urine Negative (Negative); PH,Urine 6.5 pH Units (5.0-8.0); Protein,Urine 100 mg/dL (Neg-Trace); Specific Gravity,Urine 1.017 (1.010-1.025); Urobilinogen,Urine Normal (Normal)
[2016-11-02 07:23] LABS: Hematocrit 39.6 % (37.5-50.1); Hemoglobin 13.4 g/dL (12.9-16.9)
[2016-11-02] MEDS: Aspirin Enteric Coated 81 MG Tablet PO SCH (08:50)
[2016-11-02] MEDS ORDERED: Diltiazem CD (24hr) 120 MG CAPSULE PO SCH (09:00)
[2016-11-02] MEDS ORDERED: Magnesium Sulfate 2 GM in D5% in Water 100 ML IVPB ONE (09:03)
--- NOTE | 2016-11-02 10:01 | Cardiology Progress Note ---
Date of Encounter: 11/02/16 Time of Encounter: 09:59 Assessment and Plan (1) Atrial fibrillation Current Visit: Yes Status: Acute New onset A-Fib/Flutter. There was a spontaneous episode of A-Flutter on EP study 03/2016 that spontaneously terminated, not thought to be significant at that time. Symptomatic with intermittent palpitations. Troponins negative x 4. Attempted transitioning to PO Cardizem CD 120mg daily yesterday, but pt was still in RVR, cardizem gtt was restarted currently going at 7.5mg/hr. HR 80s- 90s at beside. Will attempt to transition to PO 180mg Cardizem CD daily. ODESSA/DCCV had been discussed, but with new onset hematuria and improving A-Fib symptoms, will not proceed with procedure as inpt at this time. Recently diagnosed JO with CPAP prescribed. TSH 6.166. Primary team to address. T3 and T4 normal. K 3.3-will replace. Mag 1.5--replace. Echo EF 55%, mild concentric LVH, mild bileaflet mitral valve prolapse with mild -moderate MR. Negative stress test 01/2016. CHADSVASC score is 2 for age and HTN. Discussed R/B/A of long-term anticoagulation and pt agreed to be on anticoagulation, preferred novel agent. Xarelto was started yesterday evening. Since xarelto dose he has been having hematuria. UA shows large amount of blood. Reports hx of hematuria 7 years ago with negative biopsy, subsided with fluid increase without recurrence until now. H&H stable. Will continue Xarelto for now. Urology consulted--requested CT with and without contrast of abdomen and pelvis. Qualifiers: Atrial fibrillation type: paroxysmal Qualified Code(s): I48.0 - Paroxysmal atrial fibrillation (2) Essential hypertension Current Visit: Yes Status: Chronic Controlled on current meds. (3) JO (obstructive sleep apnea) Current Visit: Yes Status: Chronic Recently diagnosed. Recommend CPAP compliance. (4) Hematuria Current Visit: Yes Status: Acute Since xarelto dose he has been having hematuria. UA shows large amount of blood. Reports hx of hematuria 7 years ago with negative biopsy, subsided with fluid increase without recurrence until now. H&H stable. Urology consulted-- requested CT with and without contrast of abdomen and pelvis and they plan on seeing later today. Will continue Xarelto for now. Discussion w patient/family: The assessment and plan as outlined above was discussed with the patient and/or family members who expressed understanding and agreement. All questions were answered. Thank you for involving us in the care of your patient. Please call with any questions. I will discuss all the above with Dr. Pruett and make changes as necessary. Subjective Principal diagnosis: A-Fib Interval history: Pt went into A-Fib RVR overnight, Cardizem gtt was restarted--currently at 7.5mg /hr with HR 70s-90s at bedside. Pt reports intermittent palpitations. Reports bright red blood in urine since receiving Xarelto dose yesterday evening. Reports he had a history of hematuria approximately 7 years ago, had a normal biopsy and it had resolved until now. H&H stable. Pt denies chest pain or dyspnea. Echo shows preserved EF 55%, mild concentric LVH, indeterminate diastolic function due to A-Fib, normal RV structure and function, mild bileaflet mitral valve prolapse, mild-moderate MR. Objective Vital Signs, Last 4 Hours Temp Pulse Resp BP Pulse Ox 11/02/16 07:03 97.5 F L 79 18 115/91 97 Vital Signs Temp Pulse Resp BP Pulse Ox 11/02/16 07:03 97.5 F L 79 18 115/91 97 11/02/16 05:13 97.4 F L 82 16 116/77 11/01/16 22:00 11 98 11/01/16 19:00 97.6 F 858 18 110/85 11/01/16 15:00 97.5 F L 107 18 126/88 97 11/01/16 11:59 97.9 F 97 18 98/67 97 Intake and Output 11/01/16 11/02/16 11/02/16 23:59 07:59 15:59 Intake Total 480 / 480 46 / 46 200 / 200 Balance 480 / 480 46 / 46 200 / 200 Intake: IV Fluids 46 / 46 Cardizem 125 MG In 46 / 46 Dextrose 5% 100 ML @ 5 MG /HR 5 mls/hr IVC .Q24H [facility] Rx#:[id number] Oral 480 / 480 200 / 200 Other: Meal Dinner Breakfast Percent of Meal Consumed 100% 50% # Voids 1 1 1 Weight 89.7 kg Patient Weight 11/02/16 23:59 Weight 89.7 kg General: Conversant, No Apparent Distress HEENT: Atraumatic, Normocephaly, Mucus Membranes Moist Neck: No JVD, Normal carotid pulses Cardiac: Other (irregularly irregular) Lungs: Normal Breath Sounds, No Wheeze, Rales, Rhonchi Neuro: Alert and responsive, No focal deficits noted Abdomen: Soft, Non-Tender Skin: No rashes noted on visualized skin Musculoskeletal: No Chest Wall Tenderness Extremities: No Clubbing, No Cyanosis, No Edema, Normal Pulses Results 11/02/16 06:40 11/02/16 01:20 Lab Results 11/02/16 11/02/16 11/02/16 01:20 01:20 06:40 Hgb 13.8 13.4 Hct 39.8 39.6 Sodium 138 Potassium 3.3 L Chloride 104 Carbon Dioxide 27 BUN 17 Creatinine 0.93 Glucose 100 H Calcium 9.5 Magnesium 1.5 L Short CBC 11/02/16 11/02/16 Range/Units 06:40 01:20 Hgb 13.4 13.8 (12.9-16.9) g/dL Hct 39.6 39.8 (37.5-50.1) % BMP 11/02/16 Range/Units 01:20 Sodium 138 (136-145) mEq/L Potassium 3.3 L (3.5-4.5) mEq/L Chloride 104 (98-109) mEq/L Carbon Dioxide 27 (19-29) mEq/L BUN 17 (8-26) mg/dL Creatinine 0.93 (0.72-1.25) mg/dL Glucose 100 H (70-99) mg/dL Calcium 9.5 (8.6-10.8) mg/dL Urine 11/02/16 Range/Units 03:00 Urine Color Red A (Yellow) Urine Clarity Turbid A (Clear) Urine pH 6.5 (5.0-8.0) pH Units Ur Specific [place] 1.017 (1.010-1.025) Urine Protein 100 H (Neg-Trace) mg/dL Urine Glucose (UA) Normal (Normal) mg/dL Active Medications Albuterol Sulfate (Albuterol Inhaler) 2 puff IH Q4H PRN PRN Reason: Shortness Of Breath Stop: 05/02/17 16:38 Allopurinol (Zyloprim) 300 mg PO DAILY [facility] Stop: 05/03/17 09:01 Last Admin: 11/02/16 08:50 Dose: 300 mg Aspirin (Aspirin Ec) 81 mg PO DAILY [facility] Stop: 05/03/17 09:01 Last Admin: 11/02/16 08:50 Dose: 81 mg Calcium Carbonate (Tums) 1,000 mg PO Q4HR PRN; Protocol PRN Reason: Heartburn Stop: 05/02/17 20:30 Last Admin: 10/31/16 20:41 Dose: 1,000 mg Diltiazem HCl 125 mg/ Dextrose 125 mls @ 5 mls/hr IVC .Q24H [facility]; 5 MG/HR PRN Reason: Protocol Stop: 05/03/17 18:31 Last Infusion: 11/02/16 00:23 Dose: 7.5 mg/hr, 7.5 mls/hr Magnesium Sulfate 2 gm/ (Dextrose) 104 mls @ 100 mls/hr IVPB ONCE ONE Stop: 11/02/16 10:05 Indapamide (Lozol) 2.5 mg PO DAILY [facility] Stop: 05/03/17 09:01 Last Admin: 11/02/16 08:50 Dose: 2.5 mg Montelukast Sodium (Singulair) 10 mg PO DAILY [facility] Stop: 05/03/17 09:01 Last Admin: 11/02/16 08:50 Dose: 10 mg Naloxone HCl (Narcan) 0.4 mg IVP Q2MIN PRN PRN Reason: Opioid Reversal Stop: 05/02/17 16:36 Omeprazole (Prilosec) 20 mg PO DAILY@0630 [facility] PRN Reason: Protocol Stop: 05/03/17 06:31 Last Admin: 11/02/16 06:12 Dose: 20 mg Potassium Chloride (Potassium Chloride) 20 meq PO DAILY [facility] Stop: 05/04/17 09:01 Last Admin: 11/02/16 08:50 Dose: 20 meq Propranolol HCl (Inderal) 20 mg PO TID [facility] Stop: 05/02/17 21:01 Last Admin: 11/02/16 08:50 Dose: 20 mg Rivaroxaban (Xarelto) 20 mg PO 1700 [facility] Stop: 05/03/17 17:01 Last Admin: 11/01/16 17:37 Dose: 20 mg Sertraline HCl (Zoloft) 25 mg PO DAILY [facility] Stop: 05/03/17 09:01 Last Admin: 11/02/16 08:50 Dose: 25 mg Trazodone HCl (Trazodone) 100 mg PO HS PRN PRN Reason: Sleep Last Admin: 11/01/16 22:22 Dose: 100 mg - Imaging and Cardiology Echo: report reviewed - EKG Interpretation EKG results cardiology: other (12 hour tele AVG HR 89, A-Fib.) Consult Discharge Plan - Plan Referrals: Ines Ramirez ELECTROPHYSIOLOGY NURSE PRACTITIONER [Primary Care Provider] - 11/05/16 9:00 am
[2016-11-02] MEDS ORDERED: Diltiazem CD (24hr) 180 MG CAPSULE PO SCH (10:30)
--- NOTE | 2016-11-02 11:18 | Internal Med Progress Note ---
Date of Encounter: 11/02/16 Time of Encounter: 11:16 - Assessment and plan (1) Hematuria Current Visit: Yes Status: Acute Assessment and plan: Developed hematuria after initiation of anticoagulation. Continue to monitor for now. No drop in hemoglobin noted on CBC. Case discussed with urology by cardiology team, recommend CT abdomen/pelvis without contrast to look for possible nephrolithiasis/mass causing hematuria. Continue to follow-up. (2) Atrial fibrillation Current Visit: Yes Status: Acute Assessment and plan: New onset atrial fibrillation with rapid ventricular response. Patient has been restarted on IV Cardizem drip yesterday evening due to RVR despite 120 mg by mouth Cardizem CD. Cardiology follow-up noted, trial of 180 mg by mouth Cardizem CD today with plan to wean off IV Cardizem drip. HR noted to be improving at this time. Oral anticoagulation has been started with Xarelto, continue for now while monitoring for worsening hematuria/anemia. Continue telemetry monitoring. Echocardiogram shows 55% ejection fraction, mild concentric LVH, mild to moderate mitral regurgitation, mild mitral valve prolapse. Supportive care. Qualifiers: Atrial fibrillation type: paroxysmal Qualified Code(s): I48.0 - Paroxysmal atrial fibrillation (3) Essential hypertension Current Visit: Yes Status: Chronic (4) BPH (benign prostatic hyperplasia) Current Visit: Yes Status: Chronic Qualifiers: Prostatic enlargement morphology: unspecified morphology Lower urinary tract symptom presence: symptoms present Qualified Code(s): N40.1 - Benign prostatic hyperplasia with lower urinary tract symptoms (5) Asthma Current Visit: Yes Status: Chronic Qualifiers: Asthma severity: mild intermittent Asthma complication type: uncomplicated Qualified Code(s): J45.20 - Mild intermittent asthma, uncomplicated (6) Depression Current Visit: Yes Status: Chronic Qualifiers: Depression Type: unspecified Qualified Code(s): F32.9 - Major depressive disorder, single episode, unspecified (7) JO (obstructive sleep apnea) Current Visit: Yes Status: Chronic Assessment and plan: Recently diagnosed with obstructive sleep apnea and prescribed CPAP. Continue nocturnal CPAP. - Subjective Interval history: Improved dyspnea, palpitations, chest discomfort; started having painless hematuria since last night, after being started on Xarelto; awaiting CT abdomen; - Constitutional Vitals: Temp Pulse Resp BP Pulse Ox 97.4 F L 76 16 104/77 96 11/02/16 10:46 11/02/16 10:46 11/02/16 10:46 11/02/16 10:46 11/02/16 10:46 General appearance: Present: A&O X 3, answers questions appropriately - Respiratory Respiratory exam: Present: CTAB. Absent: accessory muscle use, rales, rhonchi, wheezes - Cardiovascular Cardiovascular exam: Present: irregular rhythm, +S1, +S2. Absent: diastolic murmur, gallop, rubs, systolic murmur - GI/Abdominal GI/Abdominal exam: Present: normal bowel sounds, soft, no peritoneal signs. Absent: distended, tenderness - Extremities Exam Extremities exam: Present: full ROM, warm, radial pulses palpable and symetrical. Absent: calf tenderness, cyanotic, pedal edema Internal Medicine: Result - Labs CBC & Chem 7: 11/02/16 12:33 11/02/16 01:20 Labs: Short CBC 11/02/16 11/02/16 Range/Units 01:20 06:40 Hgb 13.8 13.4 (12.9-16.9) g/dL Hct 39.8 39.6 (37.5-50.1) % BMP 11/02/16 01:20 Sodium 138 Potassium 3.3 L Chloride 104 Carbon Dioxide 27 BUN 17 Creatinine 0.93 Glucose 100 H Calcium 9.5 Urine 11/02/16 Range/Units 03:00 Urine Color Red A (Yellow) Urine Clarity Turbid A (Clear) Urine pH 6.5 (5.0-8.0) pH Units Ur Specific [place] 1.017 (1.010-1.025) Urine Protein 100 H (Neg-Trace) mg/dL Urine Glucose (UA) Normal (Normal) mg/dL - ABG Interpretation ABG results: PT/INR, D-dimer PT 11.1 Seconds (9.4-12.1) 10/31/16 13:00 D-Dimer 682 ng/mLFEU (0-500) H 10/31/16 13:00 Consult Discharge Plan - Plan Referrals: Ines Ramirez CNP [Primary Care Provider] - 11/05/16 9:00 am
[2016-11-02 12:51] LABS: Hematocrit 39.9 % (37.5-50.1); Hemoglobin 13.8 g/dL (12.9-16.9)
--- NOTE | 2016-11-02 17:30 | Urology - Consult Note ---
Date of Encounter: 11/02/16 Time of Encounter: 17:28 - Assessment and Plan (1) Urinary retention due to benign prostatic hyperplasia Current Visit: Yes Status: Acute Assessment and plan: I believe the patient's hematuria is coming from his prostate. We will start finasteride. He will need cystoscopic evaluation in the future. (2) Hematuria Current Visit: Yes Status: Acute Assessment and plan: Patient voided while I was in the room which revealed dark bloody urine. I believe the best course of action is to allow the patient to continue on his blood thinning medication and place a catheter on irrigation overnight. If the patient fails to remain clear on slow irrigation will need to consider operative evaluation on Saturday. Patient was prepped and draped in normal sterile fashion. I then instilled 11 mL of lidocaine jelly into the patient's penis. 22-Urdu catheter was then placed into the bladder with moderate resistance at the prostate. I then placed 20 mL in the balloon. Large amount of bloody urine was returned. I manually irrigated the catheter with a small amount of clots returned. Patient' s urine remained light pink on very slow irrigation. We will continue with CBI overnight Urology CN:HPI Consult date: 11/02/16 Reason for consult Urology: Gross Hematuria Requesting physician: Kwan Matias History of present illness: Ant is a 66-year-old male admitted to the hospital for A. fib with flutter. Patient was found to have gross hematuria after being started on Xarelto. Patient's hematuria has persisted from last night to today. He states he is voiding okay at this time. Patient had a similar episode of gross hematuria approximately 5-6 years ago. He was at a outside hospital and underwent cystoscopic evaluation where a small area was biopsied and found to be negative per the patient. Patient states that he has had significant voiding problems for years. 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 No obvious areas of tumors. Past Med Surg Social Fam HX - Past Medical History Medical history: asthma, hypertension Psychiatric history: depression - Past Surgical History Surgical History: no surgical history - Social History Smoking Status: Former smoker (quit 40years ago) Smokeless Tobacco Status: Yes Alcohol use: none, occasionally Drug use: none - Family History Mother Hx Family Cardiac Disorders: Yes (CAD) Hx Family Cancer: Yes (colon cancer) Hx Family Endocrine Disorder: Yes (DM) Medications and Allergies Albuterol Sulfate [Albuterol Inhaler] 2 puff IH Q4H PRN 03/01/16 [History] Aspirin [Lo-Dose Aspirin EC] 81 mg PO DAILY 03/01/16 [History] Indapamide [Lozol] 2.5 mg PO DAILY 03/01/16 [History] Propranolol [Inderal] 20 mg PO TID 03/01/16 [History] Sertraline [Zoloft] 25 mg PO DAILY 03/01/16 [History] Allopurinol [Zyloprim] 300 mg PO DAILY 10/31/16 [History] Chlorphen/Pseudoeph/Ibuprofen [Advil Allergy Sinus Caplet] 1 tab PO BID PRN 09/14 [History] Ibuprofen [Motrin] 600 mg PO Q6HR PRN 10/31/16 [History] Montelukast [Singulair] 10 mg PO DAILY 10/31/16 [History] Potassium Chloride [Klor-Con 10] 10 meq PO DAILY 10/31/16 [History] Trazodone HCl 100 mg PO HS PRN 10/31/16 [History] Allergies cephalexin [From Keflex] Allergy (Verified 03/01/16 08:46) Swelling of Lip/Tongue/Throat acetaminophen [From Tylenol] Adverse Reaction (Verified 03/01/16 08:46) See Comments "It effects my liver" Review of Systems - Constitutional no chills - EENT Nose, mouth and throat: no dizziness - Cardiovascular as per HPI - Respiratory no cough - Gastrointestinal no abdominal pain - Musculoskeletal no back pain - Integumentary no erythema Exam Initial Vital Signs Temp Pulse Resp BP Pulse Ox 98.1 F 85 18 139/94 98 10/31/16 12:52 10/31/16 12:52 10/31/16 12:52 10/31/16 12:52 10/31/16 12:52 - General physical appearance Present: well developed - Eyes Present: PERRL - ENT Present: normal nares - Neck Present: no masses - Respiratory Present: normal respiratory effort - Cardiovascular Cardiovascular exam IM: RRR - Abdomen Abdomen: Present: soft - Genitourinary normal penis with no external lesions Urology Results - Labs 11/02/16 12:33 11/02/16 01:20 Abnormal lab results D-Dimer 682 ng/mLFEU (0-500) H 10/31/16 13:00 Potassium 3.3 mEq/L (3.5-4.5) L 11/02/16 01:20 Glucose 100 mg/dL (70-99) H 11/02/16 01:20 Magnesium 1.5 mg/dL (1.6-2.6) L 11/02/16 01:20 Triglycerides 171 mg/dL (< 150) H 11/01/16 01:09 LDL Cholesterol, Calc 103 mg/dL (0-99) H 11/01/16 01:09 VLDL Cholesterol, Calc 34 mg/dL (< 31) H 11/01/16 01:09 HDL Cholesterol 29 mg/dL (40-59) L 11/01/16 01:09 Cholesterol/HDL Ratio 5.7 (0-4.9) H 11/01/16 01:09 TSH 6.166 mcIU/mL (0.350-4.840) H 10/31/16 13:00 Urine Color Red (Yellow) A 11/02/16 03:00 Urine Clarity Turbid (Clear) A 11/02/16 03:00 Urine Protein 100 mg/dL (Neg-Trace) H 11/02/16 03:00 Urine Blood Large (Negative) H 11/02/16 03:00 Ur Leukocyte Esterase Trace (Negative) H 11/02/16 03:00 Diabetes panel 11/02/16 Range/Units 01:20 Sodium 138 (136-145) mEq/L Potassium 3.3 L (3.5-4.5) mEq/L Chloride 104 (98-109) mEq/L Carbon Dioxide 27 (19-29) mEq/L BUN 17 (8-26) mg/dL Creatinine 0.93 (0.72-1.25) mg/dL Glucose 100 H (70-99) mg/dL Calcium 9.5 (8.6-10.8) mg/dL Calcium panel 11/02/16 Range/Units 01:20 Calcium 9.5 (8.6-10.8) mg/dL Pituitary panel 11/02/16 Range/Units 01:20 Sodium 138 (136-145) mEq/L Potassium 3.3 L (3.5-4.5) mEq/L Chloride 104 (98-109) mEq/L Carbon Dioxide 27 (19-29) mEq/L BUN 17 (8-26) mg/dL Creatinine 0.93 (0.72-1.25) mg/dL Glucose 100 H (70-99) mg/dL Calcium 9.5 (8.6-10.8) mg/dL Adrenal panel 11/02/16 Range/Units 01:20 Sodium 138 (136-145) mEq/L Potassium 3.3 L (3.5-4.5) mEq/L Chloride 104 (98-109) mEq/L Carbon Dioxide 27 (19-29) mEq/L BUN 17 (8-26) mg/dL Creatinine 0.93 (0.72-1.25) mg/dL Glucose 100 H (70-99) mg/dL Calcium 9.5 (8.6-10.8) mg/dL All other labs normal. - Imaging CT scan - abdomen: image reviewed CT scan - pelvis: image reviewed Consult Discharge Plan - Plan Referrals: Ines Ramirez CNP [Primary Care Provider] - 11/05/16 9:00 am
[2016-11-02 18:10] LABS: Hematocrit 39.4 % (37.5-50.1); Hemoglobin 13.7 g/dL (12.9-16.9)
[2016-11-02] MEDS: *HR* Rivaroxaban 10 MG TABLET PO SCH (19:00)
[2016-11-02] MEDS: Finasteride 5 MG TABLET PO SCH (19:00)
[2016-11-03 06:18] LABS: Basophils % 0.3 %; Eosinophils # 0.2 K/mcL (0.0-0.6); Eosinophils % 1.2 %; Hematocrit 40.6 % (37.5-50.1); Hemoglobin 14.1 g/dL (12.9-16.9); Immature Granulocytes % 0.3 % (0-4); Lymphocytes # 2.2 K/mcL (0.6-4.6); Lymphocytes % 18.1 %; Mean Corpuscular HGB Conc 34.7 g/dL (31.6-35.5); Mean Corpuscular Volume 92.3 fL (83.0-100.0); Mean Platelet Volume 12.1 fL (9.4-12.4); Monocytes # 0.7 K/mcL (0.0-1.3); Monocytes % 5.7 %; Platelet Count 189 K/mcL (140-400); Red Cell Distribution Width 14.4 % (11.5-14.5); Segmented Neutrophils % 74.4 %
[2016-11-03 06:37] LABS: BUN/Creatinine Ratio 15 (6-26); Blood Urea Nitrogen 15 mg/dL (8-26); Calcium 9.7 mg/dL (8.6-10.8); Carbon Dioxide 29 mEq/L (19-29); Chloride 103 mEq/L (98-109); Glucose 96 mg/dL (70-99); Magnesium 1.7 mg/dL (1.6-2.6); Osmolality,Calculated 289 (280-300); Potassium 3.7 mEq/L (3.5-4.5); Sodium 139 mEq/L (136-145); eGFR For African Americans > 60 (> 60); eGFR For Non-African Americans > 60 (> 60)
--- NOTE | 2016-11-03 08:55 | Urology Progress Note ---
Date of Encounter: 11/03/16 Time of Encounter: 08:54 - Assessment and Plan (1) Urinary retention due to benign prostatic hyperplasia Current Visit: Yes Status: Acute Assessment and plan: continue cath. may need to dc home with cath. will reeval tomorrow. am. (2) Hematuria Current Visit: Yes Status: Acute Assessment and plan: resolving. continue cath. Progress Note Narrative: Patient seen. feels much better. catheter with clear urine on very slow drip Objective Initial Vital Signs Temp Pulse Resp BP Pulse Ox 98.1 F 85 18 139/94 98 10/31/16 12:52 10/31/16 12:52 10/31/16 12:52 10/31/16 12:52 10/31/16 12:52 - General physical appearance Present: well developed - Abdomen Present: soft - Genitourinary Present: other (urine clear on very slow irrigation) - Labs 11/03/16 05:33 11/03/16 05:33 Diabetes panel 11/03/16 Range/Units 05:33 Sodium 139 (136-145) mEq/L Potassium 3.7 (3.5-4.5) mEq/L Chloride 103 (98-109) mEq/L Carbon Dioxide 29 (19-29) mEq/L BUN 15 (8-26) mg/dL Creatinine 0.97 (0.72-1.25) mg/dL Glucose 96 (70-99) mg/dL Calcium 9.7 (8.6-10.8) mg/dL Calcium panel 11/03/16 Range/Units 05:33 Calcium 9.7 (8.6-10.8) mg/dL Pituitary panel 11/03/16 Range/Units 05:33 Sodium 139 (136-145) mEq/L Potassium 3.7 (3.5-4.5) mEq/L Chloride 103 (98-109) mEq/L Carbon Dioxide 29 (19-29) mEq/L BUN 15 (8-26) mg/dL Creatinine 0.97 (0.72-1.25) mg/dL Glucose 96 (70-99) mg/dL Calcium 9.7 (8.6-10.8) mg/dL Adrenal panel 11/03/16 Range/Units 05:33 Sodium 139 (136-145) mEq/L Potassium 3.7 (3.5-4.5) mEq/L Chloride 103 (98-109) mEq/L Carbon Dioxide 29 (19-29) mEq/L BUN 15 (8-26) mg/dL Creatinine 0.97 (0.72-1.25) mg/dL Glucose 96 (70-99) mg/dL Calcium 9.7 (8.6-10.8) mg/dL Consult Discharge Plan - Plan Referrals: Ines Ramirez CNP [Primary Care Provider] - 11/05/16 9:00 am
[2016-11-03] MEDS: Diltiazem CD (24hr) 240 MG CAPSULE PO SCH (09:12)
[2016-11-03] MEDS: Finasteride 5 MG TABLET PO SCH (09:12)
--- NOTE | 2016-11-03 09:49 | Internal Med Progress Note ---
Date of Encounter: 11/03/16 Time of Encounter: 09:30 - Assessment and plan (1) Hematuria Current Visit: Yes Status: Acute Assessment and plan: Developed hematuria after initiation of anticoagulation. Urology consult appreciated, could be related to BPH. Has been started on continuous bladder irrigation on a slow drip, hematuria persistent but noted to be clearing. Reevaluation tomorrow to decide inpatient versus outpatient cystoscopy. No drop in hemoglobin noted on CBC. CT abdomen/pelvis shows bladder diverticula and focal bladder wall thickening but no renal calculi. (2) Atrial fibrillation Current Visit: Yes Status: Acute Assessment and plan: New onset atrial fibrillation with rapid ventricular response. Patient continues to have labile heart rate with tachycardia on activity and ambulation. IV Cardizem drip has been discontinued. Cardizem CD has been increased to 240 mg daily. Oral anticoagulation has been started with Xarelto, continue for now while monitoring for worsening hematuria/anemia. Continue telemetry monitoring. Echocardiogram shows 55% ejection fraction, mild concentric LVH, mild to moderate mitral regurgitation, mild mitral valve prolapse. Supportive care. Plan for possible DC CV after 4-6 weeks of anticoagulation, if tolerated. Qualifiers: Atrial fibrillation type: paroxysmal Qualified Code(s): I48.0 - Paroxysmal atrial fibrillation (3) Essential hypertension Current Visit: Yes Status: Chronic Assessment and plan: Blood pressure well controlled. Continue current medications. Low-sodium diet. (4) BPH (benign prostatic hyperplasia) Current Visit: Yes Status: Chronic Qualifiers: Prostatic enlargement morphology: unspecified morphology Lower urinary tract symptom presence: symptoms present Qualified Code(s): N40.1 - Benign prostatic hyperplasia with lower urinary tract symptoms (5) Asthma Current Visit: Yes Status: Chronic Qualifiers: Asthma severity: mild intermittent Asthma complication type: uncomplicated Qualified Code(s): J45.20 - Mild intermittent asthma, uncomplicated (6) Depression Current Visit: Yes Status: Chronic Qualifiers: Depression Type: unspecified Qualified Code(s): F32.9 - Major depressive disorder, single episode, unspecified (7) JO (obstructive sleep apnea) Current Visit: Yes Status: Chronic - Subjective Interval history: Intermittent palpitations, upon movement/ambulation, but overall reports significant improvement since admission; received Gottlieb catheter and started on CBI last evening; continues to have some bright red tinged urine; - Constitutional Vitals: Temp Pulse Resp BP Pulse Ox 97.9 F 83 14 124/80 96 11/03/16 06:44 11/03/16 06:44 11/03/16 06:44 11/03/16 06:44 11/03/16 06:44 General appearance: Present: A&O X 3, answers questions appropriately - Respiratory Respiratory exam: Present: CTAB. Absent: accessory muscle use, rales, rhonchi, wheezes - Cardiovascular Cardiovascular exam: Present: irregular rhythm, +S1, +S2, tachycardia. Absent: diastolic murmur, gallop, rubs, systolic murmur - GI/Abdominal GI/Abdominal exam: Present: normal bowel sounds, soft, no peritoneal signs. Absent: distended, tenderness Additional comments: Gottlieb bag with bright red tinged urine, on CBI at slow drip - Extremities Exam Extremities exam: Present: full ROM, warm, radial pulses palpable and symetrical. Absent: calf tenderness, cyanotic, pedal edema Internal Medicine: Result - Labs CBC & Chem 7: 11/03/16 05:33 11/03/16 05:33 Labs: Short CBC 11/02/16 11/02/16 11/03/16 Range/Units 12:33 18:01 05:33 WBC 12.1 H (4.3-11.1) K/mcL Hgb 13.8 13.7 14.1 (12.9-16.9) g/dL Hct 39.9 39.4 40.6 (37.5-50.1) % Plt Count 189 (140-400) K/mcL Neutrophils # 9.0 H (1.6-8.9) K/mcL BMP 11/03/16 05:33 Sodium 139 Potassium 3.7 Chloride 103 Carbon Dioxide 29 BUN 15 Creatinine 0.97 Glucose 96 Calcium 9.7 - ABG Interpretation ABG results: PT/INR, D-dimer PT 11.1 Seconds (9.4-12.1) 10/31/16 13:00 D-Dimer 682 ng/mLFEU (0-500) H 10/31/16 13:00 - Impressions Impressions Abdomen/Pelvis CT 11/02/16 12:30 IMPRESSION: 1. Bladder diverticula, the largest measuring up to 8.0 x 4.8 cm along the left lateral aspect. There is focal asymmetric wall thickening along the posterosuperior aspect of the bladder measuring up to 1.0 cm in maximum thickness. No other urinary tract calculus or filling defect. 2. Ectatic infrarenal abdominal aorta measuring up to 2.7 x 2.5 cm. 3. No other acute findings in the abdomen or pelvis. 4. Mild prostatic hypertrophy. RECOMMENDATIONS: Managing Abdominal Aortic Aneurysms 2.6-2.9 cm: 5 year follow up. 3.0-3.4 cm: 3 year follow up 3.5-3.9 cm: 1 year follow up. 4.0-4.4 cm: 1 year follow up. Recommend vascular consultation. 4.5-5.4 cm: 6 month follow up. Recommend vascular consultation. Greater than or equal to 5.5 cm: Referral to vascular surgeon. Reference: Milady et al. The care of patients with an abdominal aortic aneurysm: The Society of Vascular Surgery practice guidelines. Journal of Vascular Surgery. Vol 50, Number 85. Marilu et al. Managing Incidental Findings on Abdominal and Pelvic CT and MRI, Part 2: White Paper of the ACR Incidental Findings Committee II on Vascular Findings. J Am Alex Radiol 2013;10:789-794 D/ / 11/02/2016 14:51:42 Annelise Mo MD / lm Interpreting Provider: Annelise Mo MD Consult Discharge Plan - Plan Referrals: Ines Ramirez, INDEXER [Primary Care Provider] - 11/05/16 9:00 am
--- NOTE | 2016-11-03 12:42 | Cardiology Progress Note ---
Date of Encounter: 11/03/16 Time of Encounter: 10:30 Assessment and Plan (1) Atrial fibrillation Current Visit: Yes Status: Acute Patient presented with new onset A-Fib/Flutter. There was an episode of A- Flutter on EP study 03/2016 that spontaneously terminated, not thought to be significant at that time. He presented with symptomatic palpitations. Troponin negative x4 and recent negative stress test 01/2016. Echo during this admission demonstrates no new findings. Patient still with variable heart rates. Recommend uptitrating PO cardizem. ODESSA/DCCV was discussed but due to onset of hematuria and question of whether he would continue to tolerate anticoagulants, we have not recommended it at this time. If he is able to go home on xarelto, recommend outpatient follow up and consideration of DCCV after 30 days of anticoagulation. CHADSVASC 2 for HTN and age. Otherwise, recommend repletion of electrolytes. May need magnesium for maintenance at discharge. Potassium is now in low normal range. Continue CPAP for recent diagnosis of JO. Qualifiers: Atrial fibrillation type: paroxysmal Qualified Code(s): I48.0 - Paroxysmal atrial fibrillation (2) JO (obstructive sleep apnea) Current Visit: Yes Status: Chronic Continue CPAP for recent diagnosis of JO. (3) Hematuria Current Visit: Yes Status: Acute Appreciate Urology consultation. Urine is more clear today. We recommend continuing xarelto but will stop aspirin. Blood counts have been stable. Discussion w patient/family: The assessment and plan as outlined above was discussed with the patient and/or family members who expressed understanding and agreement. All questions were answered. Thank you for involving us in the care of your patient. Please call with any questions. Subjective Principal diagnosis: A-Fib Interval history: No acute overnight events. Patient has no new complaints this morning. Patient was started on CBI for hematuria. Objective Vital Signs, Last 4 Hours Temp Pulse Resp BP Pulse Ox 11/03/16 11:00 98.0 F 117 15 137/88 96 General: Conversant, No Apparent Distress HEENT: Mucus Membranes Moist Neck: No JVD Cardiac: Other (irregularly irregular) Lungs: Normal Breath Sounds Abdomen: Soft, Other (Bowel sounds present) Extremities: No Edema Results 11/03/16 05:33 11/03/16 05:33 Lab Results 11/02/16 11/02/16 11/03/16 12:33 18:01 05:33 WBC 12.1 H Hgb 13.8 13.7 14.1 Hct 39.9 39.4 40.6 Plt Count 189 Sodium Potassium Chloride Carbon Dioxide BUN Creatinine Glucose Calcium Magnesium 11/03/16 05:33 WBC Hgb Hct Plt Count Sodium 139 Potassium 3.7 Chloride 103 Carbon Dioxide 29 BUN 15 Creatinine 0.97 Glucose 96 Calcium 9.7 Magnesium 1.7 - Imaging and Cardiology Echo: report reviewed, image reviewed - EKG Interpretation EKG results cardiology: other (24h telemetry demonstrates average HR 98 bpm) Consult Discharge Plan - Plan Referrals: Ines Ramirez, APPLIED PSYCHOLOGY PROFESSOR [Primary Care Provider] - 11/05/16 9:00 am
[2016-11-03] MEDS: *HR* Rivaroxaban 10 MG TABLET PO SCH (17:30)
[2016-11-04 04:50] LABS: Basophils % 0.4 %; Eosinophils # 0.2 K/mcL (0.0-0.6); Eosinophils % 1.6 %; Hemoglobin 13.7 g/dL (12.9-16.9); Immature Granulocytes % 0.2 % (0-4); Lymphocytes # 2.5 K/mcL (0.6-4.6); Lymphocytes % 26.6 %; Mean Corpuscular HGB Conc 34.3 g/dL (31.6-35.5); Mean Corpuscular Hemoglobin 31.9 pg (28.0-33.3); Mean Platelet Volume 12.6 fL (9.4-12.4); Monocytes # 0.6 K/mcL (0.0-1.3); Neutrophils # 6.1 K/mcL (1.6-8.9); Platelet Count 180 K/mcL (140-400); Red Cell Distribution Width 14.5 % (11.5-14.5); Segmented Neutrophils % 65.2 %
[2016-11-04] MEDS: Diltiazem CD (24hr) 240 MG CAPSULE PO SCH (09:02)
[2016-11-04] MEDS: Finasteride 5 MG TABLET PO SCH (09:03)
--- NOTE | 2016-11-04 09:05 | Urology Progress Note ---
Date of Encounter: 11/04/16 Time of Encounter: 09:04 - Assessment and Plan (1) Urinary retention due to benign prostatic hyperplasia Current Visit: Yes Status: Acute Assessment and plan: keep foster in place. appt made this for cysto. (2) Hematuria Current Visit: Yes Status: Acute Progress Note Narrative: patient seen. feeling great. urine clear on very slow irrigation. Objective Initial Vital Signs Temp Pulse Resp BP Pulse Ox 98.1 F 85 18 139/94 98 10/31/16 12:52 10/31/16 12:52 10/31/16 12:52 10/31/16 12:52 10/31/16 12:52 - General physical appearance Present: well developed - Abdomen Present: soft - Genitourinary Present: other (urine clear in tubing ) - Labs 11/04/16 03:23 11/03/16 05:33 Consult Discharge Plan - Plan Referrals: Ines Ramirez AURIST [Primary Care Provider] - 11/05/16 9:00 am
[2016-11-04 11:44] VITALS: BP 117/74
--- NOTE | 2016-11-04 12:07 | Cardiology Progress Note ---
Date of Encounter: 11/04/16 Time of Encounter: 12:00 Assessment and Plan (1) Atrial fibrillation Current Visit: Yes Status: Acute Patient presented with new onset A-Fib/Flutter. There was an episode of A- Flutter on EP study 03/2016 that spontaneously terminated, not thought to be significant at that time. He presented with symptomatic palpitations. Troponin negative x4 and recent negative stress test 01/2016. Echo during this admission demonstrates no new findings. Patient heart rates are improved. While in the room, heart rates were in the 70s to 80s range. Recommend continuing cardizem at present dose. Consider PO magnesium at discharge. Otherwise, recommend continuing xarelto (CHADSVASC 2). Aspirin has been stopped and urine is clearing. He will have a Urology follow up and cystoscopy. Qualifiers: Atrial fibrillation type: paroxysmal Qualified Code(s): I48.0 - Paroxysmal atrial fibrillation (2) JO (obstructive sleep apnea) Current Visit: Yes Status: Chronic Continue CPAP for recent diagnosis of JO. (3) Hematuria Current Visit: Yes Status: Acute Appreciate Urology consultation. Urine is more clear today and then recommended outpatient cystoscopy. We recommend continuing xarelto at this time. Aspirin has been stopped. Blood counts have been stable. Discussion w patient/family: The assessment and plan as outlined above was discussed with the patient and/or family members who expressed understanding and agreement. All questions were answered. Thank you for involving us in the care of your patient. We will sign off. Please call with any questions. He should follow up with outpatient Cardiology. Subjective Principal diagnosis: A-Fib Interval history: No acute overnight events. Patient has no new complaints this morning. Urine fairly clear this morning per Urology. Objective Vital Signs, Last 4 Hours Temp Pulse Resp BP Pulse Ox 11/04/16 11:42 97.5 F L 66 15 117/74 97 General: Conversant, No Apparent Distress HEENT: Atraumatic, Mucus Membranes Moist Neck: No JVD Cardiac: No Murmur, Other (irregularly irregular) Lungs: Normal Breath Sounds, No Wheeze, Rales, Rhonchi Neuro: Alert and responsive, No focal deficits noted Abdomen: Soft, Other (bowel sounds present) Extremities: No Edema Results 11/04/16 03:23 11/03/16 05:33 Lab Results 11/04/16 03:23 WBC 9.4 Hgb 13.7 Hct 40.0 Plt Count 180 - EKG Interpretation EKG results cardiology: other (24h telemetry reviewed demonstrating average HR 93 bpm, while in room patient was in the 70-80's) Consult Discharge Plan - Plan Referrals: Ines Ramirez CNP [Primary Care Provider] - 11/05/16 9:00 am
--- NOTE | 2016-11-04 14:05 | Discharge Summary ---
Date of Encounter: 11/04/16 Time of Encounter: 10:00 - Discharge Diagnosis (1) Hematuria Priority: Primary Status: Acute (2) Atrial fibrillation Priority: Primary Status: Acute Qualifiers: Atrial fibrillation type: paroxysmal Qualified Code(s): I48.0 - Paroxysmal atrial fibrillation (3) Essential hypertension Priority: Secondary Status: Chronic (4) BPH (benign prostatic hyperplasia) Priority: Secondary Status: Chronic Qualifiers: Prostatic enlargement morphology: unspecified morphology Lower urinary tract symptom presence: symptoms present Qualified Code(s): N40.1 - Benign prostatic hyperplasia with lower urinary tract symptoms (5) Asthma Priority: Secondary Status: Chronic Qualifiers: Asthma severity: mild intermittent Asthma complication type: uncomplicated Qualified Code(s): J45.20 - Mild intermittent asthma, uncomplicated (6) Depression Priority: Secondary Status: Chronic Qualifiers: Depression Type: unspecified Qualified Code(s): F32.9 - Major depressive disorder, single episode, unspecified (7) JO (obstructive sleep apnea) Priority: Secondary Status: Chronic - Discharge Medications Prescriptions: Diltiazem CD (24hr) [Cardizem CD] 240 mg PO DAILY #30 cap.er.24h Magnesium Oxide [Mag-Ox] 400 mg PO DAILY #30 tablet Rivaroxaban [Xarelto] 20 mg PO 1700 #30 tablet Home Medications: Albuterol Sulfate [Albuterol Inhaler] 2 puff IH Q4H PRN 03/01/16 [History] Indapamide [Lozol] 2.5 mg PO DAILY 03/01/16 [History] Propranolol [Inderal] 20 mg PO TID 03/01/16 [History] Sertraline [Zoloft] 25 mg PO DAILY 03/01/16 [History] Allopurinol [Zyloprim] 300 mg PO DAILY 10/31/16 [History] Chlorphen/Pseudoeph/Ibuprofen [Advil Allergy Sinus Caplet] 1 tab PO BID PRN 09/14 [History] Ibuprofen [Motrin] 600 mg PO Q6HR PRN 10/31/16 [History] Montelukast [Singulair] 10 mg PO DAILY 10/31/16 [History] Potassium Chloride [Klor-Con 10] 10 meq PO DAILY 10/31/16 [History] Trazodone HCl 100 mg PO HS PRN 10/31/16 [History] Diltiazem CD (24hr) [Cardizem CD] 240 mg PO DAILY #30 cap.er.24h 11/04/16 [Rx] Magnesium Oxide [Mag-Ox] 400 mg PO DAILY #30 tablet 11/04/16 [Rx] Rivaroxaban [Xarelto] 20 mg PO 1700 #30 tablet 11/04/16 [Rx] Allergies/Adverse Reactions: Allergies cephalexin [From Keflex] Allergy (Verified 03/01/16 08:46) Swelling of Lip/Tongue/Throat acetaminophen [From Tylenol] Adverse Reaction (Verified 03/01/16 08:46) See Comments "It effects my liver" Procedures/tests Complete & Pending: Procedures Performed prior 72 hours Category Date Time Status CT abdomen pelvis wo/w con [CT] Routine Cat Scan 11/02/16 12:30 Draft EV echocardiogram Routine Y 11/01/16 16:39 Completed Date of admission: 10/31/16 16:35 Primary care physician: Ines Ramirez CNP Consults: 11/01/16 11:58 Consult to Cardiology [CONS] Routine Comment: Consulting Provider: Cardiology Janine Reason for Consult: New-onset a.fib with RVR Call Completed: Yes 11/02/16 09:45 Consult to Urology [CONS] Routine Consulting Provider: Urology Janine Reason for Consult: Hematuria on xarelto Call Completed: Yes Discharging clinician: Donna Coleman Anticipated date of discharge: 11/04/16 - Patient Status Disposition: Home, Self-Care Condition: Fair Functional capacity at discharge: independent ambulation Overall status at discharge: patient is progressing back to baseline - Discharge Instructions Instructions: Atrial Fibrillation (DC), Asthma (DC), Depression (DC), Chronic Hypertension (DC) Follow Up With: Ines Ramirez CNP [Primary Care Provider] - 11/05/16 9:00 am Forms: ED Satisfaction Letter Additional Instructions: F/up with /Urology on 11/08/16 as scheduled F/up with Jan[facility] Cardiology as scheduled - Diet and Activity Activity: resume usual activities as tolerated, other (Gottlieb catheter care) Diet: low fat, low cholesterol, low salt diet Hospital course: Mr. Gonzales is a 66 year old male who was admitted with palpitations and dyspnea and was noted to be having new onset atrial fibrillation with rapid ventricular response. He was initially started on IV Cardizem drip which was gradually titrated to oral Cardizem CD and is currently stable on to 40 mg daily. He was also started on oral Xarelto for anticoagulation. Cardiology was consulted and assisted with the management of atrial fibrillation. DC cardioversion was considered, however patient developed hematuria after being started on anticoagulation and his symptoms of palpitations and dyspnea at rest have improved significantly with heart rate controlled. Hence, cardioversion is being deferred for now until 4-6 weeks of anticoagulation is achieved. Urology was consulted for hematuria, CT abdomen/pelvis showed bladder diverticula but no other acute abnormality. Patient received Gottlieb catheterization and continuous bladder irrigation at a slow drip with gradual clearing of hematuria. At this time, he is stable for discharge with outpatient urology follow-up for possible cystoscopy. He is being discharged on Gottlieb catheter and is otherwise doing well today. Anticoagulation is being continued at this time and his hemoglobin remained stable throughout this hospitalization. - Time Spent with Patient Total time spent providing and/or coordinating discharge services: Greater than 30 minutes (45 min) - Constitutional Vitals: Temp Pulse Resp BP Pulse Ox 97.5 F L 66 15 117/74 97 11/04/16 11:42 11/04/16 11:42 11/04/16 11:42 11/04/16 11:42 11/04/16 11:42 General appearance: Present: A&O X 3, answers questions appropriately - Respiratory Respiratory exam: Present: CTAB. Absent: accessory muscle use, rales, rhonchi, wheezes - Cardiovascular Cardiovascular exam: Present: irregular rhythm, +S1, +S2. Absent: diastolic murmur, gallop, rubs, systolic murmur
[2016-11-04] MEDS: *HR* Rivaroxaban 10 MG TABLET PO SCH (18:10)
== END 2016-11-04 18:30 | disposition home or self-care (01) | DRG 310 ==
LOC: EMEROO 12:51 → 2NENU 12:51 → SUATTDRO 16:35
PROVIDERS: ADMIT Hospitalist; ATTEND Internal Medicine

== ENCOUNTER 2016-12-11 11:22 | Observation (INO) ==
[2016-12-11] MEDS ORDERED: 0.9 % Sodium Chloride 1,000 ML IVC ONE (11:34)
[2016-12-11 11:52] LABS: Basophils % 0.3 %; Eosinophils # 0.1 K/mcL (0.0-0.6); Eosinophils % 1.1 %; Hemoglobin 13.6 g/dL (12.9-16.9); Immature Granulocytes % 0.4 % (0-4); Lymphocytes # 1.6 K/mcL (0.6-4.6); Lymphocytes % 20.9 %; Mean Corpuscular Hemoglobin 31.1 pg (28.0-33.3); Mean Corpuscular Volume 91.3 fL (83.0-100.0); Mean Platelet Volume 11.5 fL (9.4-12.4); Monocytes # 0.4 K/mcL (0.0-1.3); Monocytes % 4.9 %; Neutrophils # 5.5 K/mcL (1.6-8.9); Platelet Count 244 K/mcL (140-400); Red Blood Count 4.38 M/mcL (4.19-5.50); Red Cell Distribution Width 14.3 % (11.5-14.5); Segmented Neutrophils % 72.4 %
[2016-12-11] MEDS ORDERED: *HR* Metoprolol 5 MG/5 ML VIAL IVP ONE (11:57)
--- NOTE | 2016-12-11 11:58 | Emergency Department Note ---
Disposition Clinical Impression: Atrial fibrillation with rapid ventricular response Chest pain Qualifiers: Chest pain type: unspecified Qualified Code(s): R07.9 - Chest pain, unspecified Disposition: Admitted As Inpatient Condition: Good Referrals: Ines Ramirez CNP [Primary Care Provider] - Forms: ED Satisfaction Letter Arrhythmia/Palpitations HPI - General Chief Complaint: ED Shortness of Breath/Dyspnea Stated Complaint: SUZE Source: patient Limitations: no limitations Nursing Notes Reviewed: Yes Vital Signs Reviewed: Yes - History of Present Illness HPI Narrative: Patient is a 66-year-old male with a history of A. fib is complaining of 2 day history of chest pain. He states today it started he stated about 15 minutes after taking his by mouth Cardizem. He had chest pressure and shortness of breath and palpitations which resolved after 2 hours. He has exact same symptoms today 15 minutes after taking Cardizem for the symptoms have not been relieved since then. He is complaining of chest pressure and shortness of breath and tachycardia palpitations. Cardizem seems to make a worse time needed better yesterday but not today. 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 - Related Data Home Medications Medication Instructions Recorded Confirmed Albuterol Sulfate [Albuterol 2 puff IH Q4H PRN 03/01/16 10/31/16 Inhaler] Indapamide [Lozol] 2.5 mg PO DAILY 03/01/16 10/31/16 Propranolol [Inderal] 20 mg PO TID 03/01/16 10/31/16 Sertraline [Zoloft] 25 mg PO DAILY 03/01/16 10/31/16 Allopurinol [Zyloprim] 300 mg PO DAILY 10/31/16 10/31/16 Chlorphen/Pseudoeph/Ibuprofen 1 tab PO BID PRN 10/31/16 10/31/16 [Advil Allergy Sinus Caplet] Ibuprofen [Motrin] 600 mg PO Q6HR PRN 10/31/16 10/31/16 Montelukast [Singulair] 10 mg PO DAILY 10/31/16 10/31/16 Potassium Chloride [Klor-Con 10] 10 meq PO DAILY 10/31/16 10/31/16 Trazodone HCl 100 mg PO HS PRN 10/31/16 10/31/16 Previous Rx's Medication Instructions Recorded Diltiazem CD (24hr) [Cardizem CD] 240 mg PO DAILY #30 cap.er.24h 11/04/16 Magnesium Oxide [Mag-Ox] 400 mg PO DAILY #30 tablet 11/04/16 Rivaroxaban [Xarelto] 20 mg PO 1700 #30 tablet 11/04/16 Allergies Allergy/AdvReac Type Severity Reaction Status Date / Time cephalexin [From Keflex] Allergy Swelling Verified 12/11/16 11:39 of Lip/Tongue/Throat acetaminophen [From Tylenol] AdvReac See Verified 12/11/16 11:39 Comments All systems ED: reviewed and negative except as stated. Constitutional: Denies: fever, chills Respiratory: Denies: wheezes, hemoptysis Gastrointestinal: Denies: nausea, vomiting Past Medical History - Past Medical History Source: patient, old records reviewed, nursing notes reviewed Medical history: Reports: asthma, atrial fibrillation, hypertension Surgical history: Reports: no surgical history Psychiatric history: Reports: depression - Social History Smoking Status: Former smoker Smokeless Tobacco Status: Yes Alcohol use: Reports: none, occasionally Drug use: Reports: none Physical Exam - General Limitations: no limitations General appearance: alert, in no apparent distress - Head Head exam: atraumatic, normocephalic, normal inspection - Eye Eye exam: Present: normal appearance, PERRL, EOMI - Expanded Eye Exam Pupils: Left: reactive - ENT ENT exam: normal exam, normal oropharynx, mucous membranes moist - Expanded ENT Exam External ear exam: Present: normal external inspection Mouth exam: Present: normal external inspection Teeth exam: Present: normal inspection Throat exam: Present: normal inspection - Neck Neck exam: Present: normal inspection, full ROM, trachea midline - Chest Chest inspection: Present: normal inspection, symmetric chest wall rise - Respiratory Respiratory exam: Present: normal lung sounds bilaterally - Cardiovascular Cardiovascular exam: Present: tachycardia, irregular rhythm - Abdominal Exam Abdominal exam: Present: soft, Non-Tender. Absent: tenderness, distention, guarding, rebound, rigidity - Extremities Exam Extremities exam: Present: normal inspection, full ROM. Absent: tenderness, pedal edema - Expanded Upper Extremity Exam Shoulder exam: Present: normal inspection, full ROM Arm exam: Present: normal inspection, full ROM Elbow exam: Present: normal inspection, full ROM Forearm/Wrist exam: Present: normal inspection, full ROM Hand exam: Present: normal inspection, full ROM Vascular exam: Normal: capillary refill, radial pulse - Expanded Lower Extremity Exam Hip/Pelvis exam: Present: normal inspection, full ROM Upper leg exam: Present: normal inspection, full ROM Knee exam: Present: normal inspection, full ROM Lower leg exam: Present: normal inspection, full ROM Ankle exam: Present: normal inspection, full ROM Foot/toe exam: Present: normal inspection, full ROM Neurovascular/Tendon exam: Absent: motor deficit, sensory deficit, tendon deficit - Back Exam Back exam: Present: normal inspection, full ROM. Absent: tenderness - Neurological Exam Neurological exam: Present: alert, oriented X3 - Expanded Neurological Exam Patient oriented to: Present: person, place, time Coma Scale Eye Opening: Spontaneous Coma Scale Motor Response: Obeys Commands Coma Scale Verbal Response: Oriented Coma Scale Total: 15 - Psychiatric Psychiatric exam: Present: normal affect, normal mood - Skin Skin exam: Present: warm, dry, intact, normal color Course Vital Signs Temperature 98.1 F 12/11/16 11:40 Pulse Rate 138 12/11/16 11:40 Respiratory Rate 26 12/11/16 11:40 Blood Pressure 119/106 12/11/16 11:40 O2 Sat by Pulse Oximetry 100 12/11/16 11:40 Temperature 98.1 F 12/11/16 11:40 Pulse Rate 95 12/11/16 13:52 Respiratory Rate 18 12/11/16 13:52 Blood Pressure 105/58 12/11/16 13:52 O2 Sat by Pulse Oximetry 97 12/11/16 13:52 Oxygen Delivery Oxygen Delivery Nasal Cannula Arrhythmia/Palpitations - Differential Diagnosis Differential Diagnosis: Likely: sinus tachycardia, artial arrhythmia, ventricular premature beats, supraventricular tachycardia, ventricular tachycardia, metabolic/electrolyte disturbance - Medical Records Medical records reviewed: Yes I reviewed the patient's medical records. - Lab Data Lab results reviewed: Yes I reviewed the patient's lab results. Result diagrams: 12/11/16 11:44 12/11/16 11:44 Lab Results 12/11/16 12/11/16 12/11/16 Range/Units 11:44 11:44 11:44 WBC 7.6 (4.3-11.1) K/mcL RBC 4.38 (4.19-5.50) M/mcL Hgb 13.6 (12.9-16.9) g/dL Hct 40.0 (37.5-50.1) % MCV 91.3 (83.0-100.0) fL MCH 31.1 (28.0-33.3) pg MCHC 34.0 (31.6-35.5) g/dL RDW 14.3 (11.5-14.5) % Plt Count 244 (140-400) K/mcL MPV 11.5 (9.4-12.4) fL Immature Gran % 0.4 (0-4) % Seg Neutrophils % 72.4 % Lymphocytes % 20.9 % Monocytes % 4.9 % Eosinophils % 1.1 % Basophils % 0.3 % Neutrophils # 5.5 (1.6-8.9) K/mcL Lymphocytes # 1.6 (0.6-4.6) K/mcL Monocytes # 0.4 (0.0-1.3) K/mcL Eosinophils # 0.1 (0.0-0.6) K/mcL Basophils # 0.0 (0.0-0.2) K/mcL PT 16.8 H (9.4-12.1) Seconds INR 1.5 APTT 37.8 H (26.0-36.0) Seconds Sodium 137 (136-145) mEq/L Potassium 4.1 (3.5-4.5) mEq/L Chloride 103 (98-109) mEq/L Carbon Dioxide 24 (19-29) mEq/L BUN 16 (8-26) mg/dL Creatinine 1.36 H (0.72-1.25) mg/dL Est GFR ( Amer) > 60 (> 60) Est GFR (Non-Af Amer) 53 L (> 60) BUN/Creatinine Ratio 12 (6-26) Glucose 101 H (70-99) mg/dL Calculated Osmolality 285 (280-300) Calcium 10.4 (8.6-10.8) mg/dL Magnesium 1.9 (1.6-2.6) mg/dL Troponin I (0-0.03) ng/mL TSH 9.936 H (0.350-4.840) mcIU/mL 06/13/17 Range/Units 11:44 WBC (4.3-11.1) K/mcL RBC (4.19-5.50) M/mcL Hgb (12.9-16.9) g/dL Hct (37.5-50.1) % MCV (83.0-100.0) fL MCH (28.0-33.3) pg MCHC (31.6-35.5) g/dL RDW (11.5-14.5) % Plt Count (140-400) K/mcL MPV (9.4-12.4) fL Immature Gran % (0-4) % Seg Neutrophils % % Lymphocytes % % Monocytes % % Eosinophils % % Basophils % % Neutrophils # (1.6-8.9) K/mcL Lymphocytes # (0.6-4.6) K/mcL Monocytes # (0.0-1.3) K/mcL Eosinophils # (0.0-0.6) K/mcL Basophils # (0.0-0.2) K/mcL PT (9.4-12.1) Seconds INR APTT (26.0-36.0) Seconds Sodium (136-145) mEq/L Potassium (3.5-4.5) mEq/L Chloride (98-109) mEq/L Carbon Dioxide (19-29) mEq/L BUN (8-26) mg/dL Creatinine (0.72-1.25) mg/dL Est GFR ( Amer) (> 60) Est GFR (Non-Af Amer) (> 60) BUN/Creatinine Ratio (6-26) Glucose (70-99) mg/dL Calculated Osmolality (280-300) Calcium (8.6-10.8) mg/dL Magnesium (1.6-2.6) mg/dL Troponin I 0.00 (0-0.03) ng/mL TSH (0.350-4.840) mcIU/mL - Radiology Data Radiology results reviewed: Yes I reviewed the patient's radiology results. - EKG Data EKG attestation: Yes I reviewed and interpreted this EKG. Rate: tachycardia (120) Rhythm: A.Fib Meridian/QRS: normal Critical Care Time Critical Care Time: Yes Total Critical Care Time: 35 Attestation: Critical care performed: Time is exclusive of separately billable procedures. Time includes: direct patient care, patient reassessment, coordination of patient care, interpretation of data (laboratory data, radiology data, and respiratory data), review of patient's medical records, medical consultation and documentation of patient care. Procedures included in critical care time: Procedures excluded from critical care time:
[2016-12-11 12:02] LABS: INR 1.5; Prothrombin Time 16.8 Seconds (9.4-12.1)
[2016-12-11 12:05] LABS: Activated Partial Thrombo Time 37.8 Seconds (26.0-36.0); BUN/Creatinine Ratio 12 (6-26); Blood Urea Nitrogen 16 mg/dL (8-26); Calcium 10.4 mg/dL (8.6-10.8); Carbon Dioxide 24 mEq/L (19-29); Chloride 103 mEq/L (98-109); Glucose 101 mg/dL (70-99); Magnesium 1.9 mg/dL (1.6-2.6); Osmolality,Calculated 285 (280-300); Potassium 4.1 mEq/L (3.5-4.5); Sodium 137 mEq/L (136-145); eGFR For African Americans > 60 (> 60); eGFR For Non-African Americans 53 (> 60)
[2016-12-11 12:27] LABS: Thyroid Stimulating Hormone 9.936 mcIU/mL (0.350-4.840)
--- NOTE | 2016-12-11 17:50 | Internal Med History&Physical ---
Date of Encounter: 12/11/16 Time of Encounter: 16:00 Assessment and Plan (1) Persistent atrial fibrillation Current visit: Yes Status: Acute Patient will scheduled to see cardiology. He was prescribed diltiazem he thinks that it is that diltiazem that is giving him the chest pain and therefore he is anxious about continuing it. We will hold diltiazem. Continue with Xarelto. I have discussed the case with Dr. cody. He may benefit from cardioversion. We will keep him nothing by mouth past midnight. Monitor on telemetry. (2) BPH (benign prostatic hyperplasia) Current visit: Yes Status: Acute Continue with finasteride per home dose. Qualifiers: Prostatic enlargement morphology: unspecified morphology Lower urinary tract symptom presence: symptoms present Qualified Code(s): N40.1 - Benign prostatic hyperplasia with lower urinary tract symptoms (3) JO (obstructive sleep apnea) Current visit: No Status: Chronic We will use CPAP at night. (4) Chest pain Current visit: Yes Status: Acute Chest pain possibly secondary to unstable angina. Per chart review he has had a stress test done in January 2016 which was negative[address] We will place the patient in observation. Monitor on telemetry. Trend troponin. Consult cardiology. Qualifiers: Chest pain type: precordial pain Qualified Code(s): R07.2 - Precordial pain Internal Medicine - H&P: HPI Chief complaint: Chest pain Admitted From: Emergency Dept Plans for Post Hospital Care: Home History of present illness: Mr. Gonzales is a 66 year old male with past medical history significant for hypertension, BPH and atrial fibrillation diagnosed 1 month ago currently on anticoagulation who presented to the hospital for evaluation of chest pain. He reports sudden onset severe pressure-like midsternal chest pain today. He denies any palpitations. He says the pain is different than last time he had been admitted and diagnosed with atrial fibrillation. He denies any aggravating or alleviating factors. His initial workup done in the emergency department included an EKGwhich showed evidence of rate-controlled atrial fibrillation. troponin was negative. He was referred for admission. A 10 point review of systems was negative except as above. Family history positive for coronary artery disease in the patient's father and breast cancer in the patient's mother. Past Med Surg Social Fam HX - Past Medical History Medical history: asthma, atrial fibrillation, hypertension Psychiatric history: depression - Past Surgical History Surgical History: no surgical history - Social History Smoking Status: Former smoker Smokeless Tobacco Status: Yes Alcohol use: none, occasionally Drug use: none - Family History Mother Hx Family Cardiac Disorders: Yes (CAD) Hx Family Cancer: Yes (colon cancer) Hx Family Endocrine Disorder: Yes (DM) Internal Medicine - H&P: Meds Albuterol Sulfate [Albuterol Inhaler] 2 puff IH Q4H PRN 03/01/16 [History] Indapamide [Lozol] 2.5 mg PO DAILY 03/01/16 [History] Propranolol [Inderal] 20 mg PO TID 03/01/16 [History] Sertraline [Zoloft] 25 mg PO DAILY 03/01/16 [History] Allopurinol [Zyloprim] 300 mg PO DAILY 10/31/16 [History] Chlorphen/Pseudoeph/Ibuprofen [Advil Allergy Sinus Caplet] 1 tab PO BID PRN 09/14 [History] Ibuprofen [Motrin] 600 mg PO Q6HR PRN 10/31/16 [History] Montelukast [Singulair] 10 mg PO DAILY 10/31/16 [History] Potassium Chloride [Klor-Con 10] 10 meq PO DAILY 10/31/16 [History] Trazodone HCl 100 mg PO HS PRN 10/31/16 [History] Diltiazem CD (24hr) [Cardizem CD] 240 mg PO DAILY #30 cap.er.24h 11/04/16 [Rx] Magnesium Oxide [Mag-Ox] 400 mg PO DAILY #30 tablet 11/04/16 [Rx] Rivaroxaban [Xarelto] 20 mg PO 1700 #30 tablet 11/04/16 [Rx] Albuterol Neb [Proventil Neb] 2.5 mg IH TID 12/11/16 [History] Finasteride [Proscar] 5 mg PO DAILY 12/11/16 [History] Sulfamethoxazole/Trimeth DS [Bactrim DS] 1 tab PO BID 12/11/16 [History] Allergies cephalexin [From Keflex] Allergy (Verified 12/11/16 11:39) Swelling of Lip/Tongue/Throat acetaminophen [From Tylenol] Adverse Reaction (Verified 12/11/16 11:39) See Comments "It effects my liver" All Systems PM: A 10-system review of systems was performed and is negative for pertinent findings except as documented above in the HPI. - Constitutional Vitals: Temp Pulse Resp BP Pulse Ox 97.8 F 66 18 102/67 97 12/11/16 16:17 12/11/16 16:17 12/11/16 16:17 12/11/16 16:17 12/11/16 16:17 General appearance: Present: A&O X 3 - Neck Neck exam general surgery: Present: supple, trachea midline. Absent: lymphadenopathy - Respiratory Respiratory exam: Present: CTAB. Absent: accessory muscle use, rales, rhonchi, wheezes - Cardiovascular Cardiovascular exam: Present: RRR, +S1, +S2. Absent: diastolic murmur, gallop, rubs, systolic murmur - GI/Abdominal GI/Abdominal exam: Present: normal bowel sounds, soft, no peritoneal signs. Absent: distended, tenderness - Neurological Exam Neurological exam: Present: CN II-XII intact, oriented X3, no focal deficits. Absent: pronater drift, facial droop, speech deficit - Skin Skin exam: Present: dry, intact Internal Med - H&P Results - Labs CBC & Chem 7: 12/11/16 11:44 12/11/16 11:44 - EKG Data -: EKG Interpreted by Myself (Atrial fibrillation with ventricular rate of 80. No ST or T-wave changes.)
[2016-12-11] MEDS ORDERED: traZODone 50 MG TABLET PO PRN (18:00)
[2016-12-11] MEDS ORDERED: Naloxone 0.4 MG/ML INJ IVP PRN (18:01)
[2016-12-11] MEDS ORDERED: *HR* Morphine 2 MG/ML SYRINGE IVP PRN (18:01)
[2016-12-11] MEDS ORDERED: *HR* OxyCODONE Immed Rel 5 MG TABLET PO PRN (18:05)
[2016-12-11] MEDS ORDERED: *HR* Rivaroxaban 10 MG TABLET PO ONE (18:48)
[2016-12-11] MEDS: Sulfamethoxazole/Trimeth DS 1 EACH TABLET PO SCH (20:54)
[2016-12-12 00:40] LABS: Basophils % 0.2 %; Eosinophils # 0.3 K/mcL (0.0-0.6); Eosinophils % 3.1 %; Hematocrit 37.6 % (37.5-50.1); Hemoglobin 12.5 g/dL (12.9-16.9); Immature Granulocytes % 0.2 % (0-4); Lymphocytes # 2.7 K/mcL (0.6-4.6); Lymphocytes % 30.6 %; Mean Corpuscular HGB Conc 33.2 g/dL (31.6-35.5); Mean Corpuscular Hemoglobin 31.1 pg (28.0-33.3); Mean Corpuscular Volume 93.5 fL (83.0-100.0); Mean Platelet Volume 11.6 fL (9.4-12.4); Monocytes # 0.5 K/mcL (0.0-1.3); Monocytes % 5.3 %; Neutrophils # 5.3 K/mcL (1.6-8.9); Platelet Count 220 K/mcL (140-400); Red Blood Count 4.02 M/mcL (4.19-5.50); Red Cell Distribution Width 14.4 % (11.5-14.5); Segmented Neutrophils % 60.6 %
[2016-12-12 00:55] LABS: BUN/Creatinine Ratio 12 (6-26); Blood Urea Nitrogen 15 mg/dL (8-26); Calcium 9.3 mg/dL (8.6-10.8); Carbon Dioxide 26 mEq/L (19-29); Chloride 106 mEq/L (98-109); Chol/HDL Ratio 4.3 (0-4.9); Cholesterol 139 mg/dL (< 200); Glucose 91 mg/dL (70-99); HDL Cholesterol 32 mg/dL (40-59); LDL Cholesterol,Calculated 90 mg/dL (0-99); Magnesium 1.7 mg/dL (1.6-2.6); Osmolality,Calculated 288 (280-300); Potassium 4.1 mEq/L (3.5-4.5); Sodium 139 mEq/L (136-145); Triglycerides 85 mg/dL (< 150); eGFR For African Americans > 60 (> 60); eGFR For Non-African Americans 60 (> 60)
[2016-12-12] MEDS ORDERED: Nitroglycerin 0.4 MG TAB.SUBL SL PRN (05:57)
--- NOTE | 2016-12-12 08:24 | Electrocardiograph Report ---
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
[2016-12-12] MEDS: Finasteride 5 MG TABLET PO SCH (08:35)
[2016-12-12] MEDS: Magnesium Oxide 400 MG TABLET PO SCH (08:35)
[2016-12-12] MEDS: Sulfamethoxazole/Trimeth DS 1 EACH TABLET PO SCH ×2 (08:36→22:05)
--- NOTE | 2016-12-12 10:29 | Cardiology Consult Note ---
Date of Encounter: 12/12/16 Time of Encounter: 09:00 Assessment and Plan (1) Atrial fibrillation with RVR Current Visit: Yes Status: Acute Patient 4 days of chest pain, palpitations and diaphoresis is in his ED with A. fib RVR and admitted. Patient currently has negative troponins negative 3. EKG still shows A. fib RVR at a rate of 101. Patient heart rate at bedside 90s. Patient currently not in any pain or discomfort. Review of patient's labs show hyperkalemia today patient has an elevation of his TSH currently 9.936 He seemed back me sevens for A. fib newly diagnosed and placed on Xarelto. Patient had TTE a 11/01/2016 that showed an LVEF 55% with mild LVH, normal RV size and function, mild Bileaflet mitral valve prolapse, mild to moderate mitral regurgitation no pulmonary hypertension and normal wall motion. Last exercise nuclear stress test 02/24/2016 inches negative for ischemia allegated EF of 69%. There is discussion of cardioversion at that time but patient needed to be anticoagulated for which she was placed on xarelto. Plan: Stop propranolol, placed on metoprolol 25 mg twice a day, recommend assessment for hypothyroidism with elevation of TSH. More to follow after further assessment (2) Atrial fibrillation with rapid ventricular response Current Visit: Yes Status: Acute Discussion w patient/family: The assessment and plan as outlined above was discussed with the patient and/or family members who expressed understanding and agreement. All questions were answered. Thank you for involving us in the care of your patient. Please call with any questions. History of Present Illness Consult date: 12/11/16 Requesting physician: Lance Guillen Consult reason: A. fib RVR Chief complaint: Chest pain and heart palpitations History of present illness: Mr. Gonzales is a 66 year old male with a past medical history of A. fib and hypertension reconsult for A. fib RVR. Patient states he started having substernal chest pressure-like chest pain without radiation and shortness breath with diaphoresis 4 days ago. Patient states symptoms began 15 minutes after taking his Cardizem. Patient states symptoms lasted for about 2 hours and then stopped. This effect continued over the next 3 days after taking his Cardizem. Patient states he woke up drenched in sweat 1 day ago. Patient presented to [place] ED 1 day for persistent chest pain symptoms and palpitations and was found to be in A. fib RVR. Patient was admitted to the hospital placed on telemetry. Patient's given metoprolol in the ED and placed on propranolol. Patient states last recurrence of symptoms was last night but states he slept well and had no recurrences symptoms this morning. Patient states he seen Dr. Grewal in the past year in January. Patient states he was recently treated for UTI as finish his antibiotic regimen. Patient is also admitted and treated for hypokalemia over 1 week ago. Past Med Surg Social Fam HX - Past Medical History Attestation: Yes The following information was validated with the patient. Source: patient Medical history: asthma, atrial fibrillation, hypertension Psychiatric history: depression - Past Surgical History Surgical History: no surgical history - Social History Smoking Status: Former smoker Smokeless Tobacco Status: Yes Alcohol use: none, occasionally Drug use: none - Family History Mother Hx Family Cardiac Disorders: Yes (CAD) Hx Family Cancer: Yes (colon cancer) Hx Family Endocrine Disorder: Yes (DM) Medications and Allergies Albuterol Sulfate [Albuterol Inhaler] 2 puff IH Q4H PRN 03/01/16 [History] Indapamide [Lozol] 2.5 mg PO DAILY 03/01/16 [History] Propranolol [Inderal] 20 mg PO TID 03/01/16 [History] Sertraline [Zoloft] 25 mg PO DAILY 03/01/16 [History] Allopurinol [Zyloprim] 300 mg PO DAILY 10/31/16 [History] Chlorphen/Pseudoeph/Ibuprofen [Advil Allergy Sinus Caplet] 1 tab PO BID PRN 09/14 [History] Ibuprofen [Motrin] 600 mg PO Q6HR PRN 10/31/16 [History] Montelukast [Singulair] 10 mg PO DAILY 10/31/16 [History] Potassium Chloride [Klor-Con 10] 10 meq PO DAILY 10/31/16 [History] Trazodone HCl 100 mg PO HS PRN 10/31/16 [History] Diltiazem CD (24hr) [Cardizem CD] 240 mg PO DAILY #30 cap.er.24h 11/04/16 [Rx] Magnesium Oxide [Mag-Ox] 400 mg PO DAILY #30 tablet 11/04/16 [Rx] Rivaroxaban [Xarelto] 20 mg PO 1700 #30 tablet 11/04/16 [Rx] Albuterol Neb [Proventil Neb] 2.5 mg IH TID 12/11/16 [History] Finasteride [Proscar] 5 mg PO DAILY 12/11/16 [History] Sulfamethoxazole/Trimeth DS [Bactrim DS] 1 tab PO BID 12/11/16 [History] Allergies cephalexin [From Keflex] Allergy (Verified 12/11/16 11:39) Swelling of Lip/Tongue/Throat acetaminophen [From Tylenol] Adverse Reaction (Verified 12/11/16 11:39) See Comments "It effects my liver" All Systems Review: A 10-system review of systems was performed and is negative for pertinent findings except as documented above in the HPI. Patient currently denies any chest pain, lightheadedness, changes in vision, shortness of breath, cough, extremity numbness and tingling, extremity edema, back pain, urinary symptoms. - Constitutional Constitutional: chills, night sweats - Cardiovascular Cardiovascular: as per HPI Physical Examination Vital Signs, Last 4 Hours Temp Pulse Resp BP Pulse Ox 12/12/16 07:48 97.9 F 92 16 127/88 100 General: Conversant, No Apparent Distress HEENT: Atraumatic, Normocephaly, Mucus Membranes Moist Neck: Normal carotid pulses Cardiac: Reg Rate and Rhythm, Normal S1 and S2, No Murmur Lungs: Normal Breath Sounds, No Wheeze, Rales, Rhonchi Neuro: Alert and responsive, No focal deficits noted Abdomen: Soft, Non-Tender Skin: No rashes noted on visualized skin Musculoskeletal: No Chest Wall Tenderness Extremities: No Clubbing, No Cyanosis, No Edema, Normal Pulses Results 12/12/16 00:21 12/12/16 00:21 Lab Results 12/11/16 12/12/16 12/12/16 18:38 00:21 00:21 WBC 8.8 Hgb 12.5 L Hct 37.6 Plt Count 220 Sodium Potassium Chloride Carbon Dioxide BUN Creatinine Glucose Calcium Magnesium Troponin I 0.00 0.01 12/12/16 00:21 WBC Hgb Hct Plt Count Sodium 139 Potassium 4.1 Chloride 106 Carbon Dioxide 26 BUN 15 Creatinine 1.22 Glucose 91 Calcium 9.3 Magnesium 1.7 Troponin I - Imaging and Cardiology Chest Xray: report reviewed (No acute cardiopulmonary abnormalities), image reviewed Stress Test: report reviewed (ECG was negative for ischemia, stress ECG demonstrated occasional PVCs and PACs, recovery CT 7 start occasional PVCs P ACs , ventricular couplets and brief episodes of SVTs., Exercise capacity was good up to 10.1 mets no chest pain. She irrigated EF of 69%, perfusion imaging was negative for ischemia or infarct.) Echo: report reviewed (Normal left ventricular systolic function with an LVEF of 55%, mild concentric left ventricular hypertrophy, intermediate diastolic function due to A. fib, normal right ventricular size and function, mild Bileaflet mitral valve prolapse, [id number] mitral regurgitation, no evidence of pulmonary hypertension.) - EKG Interpretation EKG results cardiology: personally reviewed (EKG today shows A. fib RVR at a rate of [address] elevations or depressions in any leads) Consult Discharge Plan - Plan Referrals: Ines Ramirez, NURSES SUPERINTENDENT [Primary Care Provider] -
[2016-12-12] MEDS ORDERED: *HR* OxyCODONE Immed Rel 5 MG TABLET PO PRN (11:48)
--- NOTE | 2016-12-12 12:22 | Internal Med Progress Note ---
Date of Encounter: 12/12/16 Time of Encounter: 10:00 - Assessment and plan (1) Atrial fibrillation Current Visit: Yes Status: Chronic Assessment and plan: Patient was recently diagnosed with atrial fibrillation, about 6 weeks ago and has been started on rate control with Cardizem, beta chandler and anticoagulation with Xarelto. He reports stopping beta chandler and Cardizem about 2 days ago as he thinks Cardizem is giving him shortness of breath and chest pain. Cardiology consult appreciated, possible cardioversion during this admission. Continue anticoagulation for now. Beta chandler is changed to metoprolol from Inderal. Telemetry monitoring; Troponins negative. Qualifiers: Atrial fibrillation type: paroxysmal Qualified Code(s): I48.0 - Paroxysmal atrial fibrillation (2) Essential hypertension Current Visit: Yes Status: Chronic Assessment and plan: Blood pressure noted to be well controlled. Continue home medications. (3) Depression Current Visit: Yes Status: Chronic Qualifiers: Depression Type: unspecified Qualified Code(s): F32.9 - Major depressive disorder, single episode, unspecified (4) JO (obstructive sleep apnea) Current Visit: Yes Status: Chronic (5) BPH (benign prostatic hyperplasia) Current Visit: Yes Status: Chronic Qualifiers: Prostatic enlargement morphology: unspecified morphology Lower urinary tract symptom presence: symptoms present Qualified Code(s): N40.1 - Benign prostatic hyperplasia with lower urinary tract symptoms (6) Hypothyroidism Current Visit: Yes Status: Acute Assessment and plan: TSH noted to be high, close to 10. Free T4 noted to be low, 0.52. Patient likely has primary hypothyroidism, will start on levothyroxine. Qualifiers: Hypothyroidism type: unspecified Qualified Code(s): E03.9 - Hypothyroidism , unspecified - Subjective Interval history: Feels better today. Improved shortness of breath and chest tightness. No palpitations, dizziness or syncope. - Constitutional Vitals: Temp Pulse Resp BP Pulse Ox 97.6 F 90 16 109/66 99 12/12/16 10:59 12/12/16 10:59 12/12/16 10:59 12/12/16 10:59 12/12/16 10:59 General appearance: Present: A&O X 3, answers questions appropriately - Respiratory Respiratory exam: Present: CTAB. Absent: accessory muscle use, rales, rhonchi, wheezes - Cardiovascular Cardiovascular exam: Present: irregular rhythm, +S1, +S2. Absent: diastolic murmur, gallop, rubs, systolic murmur - GI/Abdominal GI/Abdominal exam: Present: normal bowel sounds, soft, no peritoneal signs. Absent: distended, tenderness - Extremities Exam Extremities exam: Present: full ROM, warm, radial pulses palpable and symetrical. Absent: calf tenderness, cyanotic, pedal edema - Neurological Exam Neurological exam: Present: CN II-XII intact, oriented X3, no focal deficits. Absent: pronater drift, facial droop, speech deficit Internal Medicine: Result - Labs CBC & Chem 7: 12/12/16 00:21 12/12/16 00:21 Labs: Short CBC 12/12/16 Range/Units 00:21 WBC 8.8 (4.3-11.1) K/mcL Hgb 12.5 L (12.9-16.9) g/dL Hct 37.6 (37.5-50.1) % Plt Count 220 (140-400) K/mcL Neutrophils # 5.3 (1.6-8.9) K/mcL BMP 12/12/16 00:21 Sodium 139 Potassium 4.1 Chloride 106 Carbon Dioxide 26 BUN 15 Creatinine 1.22 Glucose 91 Calcium 9.3 Cardiac Enzymes 12/11/16 12/12/16 Range/Units 18:38 00:21 Troponin I 0.00 0.01 (0-0.03) ng/mL - ABG Interpretation ABG results: PT/INR, D-dimer PT 16.8 Seconds (9.4-12.1) H 12/11/16 11:44 Consult Discharge Plan - Plan Referrals: Ines Ramirez, COLOR ARTIST [Primary Care Provider] -
[2016-12-12] MEDS: *HR* Rivaroxaban 10 MG TABLET PO SCH (15:50)
[2016-12-12] MEDS ORDERED: Naloxone 0.4 MG/ML INJ ONE (16:41)
[2016-12-12] MEDS ORDERED: *HR* Midazolam HCl 5 MG/5 ML VIAL IVP ONE (16:42)
[2016-12-12] MEDS ORDERED: 0.9 % Sodium Chloride 1,000 ML ONE ×2 (16:42→18:26)
[2016-12-12] MEDS ORDERED: *HR* FentaNYL (PF) 250 MCG/5 ML VIAL ONE (16:42)
[2016-12-13] MEDS: Levothyroxine 25 MCG TABLET PO SCH (06:40)
[2016-12-13 08:12] LABS: Basophils % 0.4 %; Eosinophils # 0.3 K/mcL (0.0-0.6); Eosinophils % 3.8 %; Hemoglobin 11.4 g/dL (12.9-16.9); Immature Granulocytes % 0.5 % (0-4); Immature Platelets 7.2 % (1.1-6.1); Lymphocytes # 2.2 K/mcL (0.6-4.6); Lymphocytes % 27.4 %; Mean Corpuscular HGB Conc 32.6 g/dL (31.6-35.5); Mean Corpuscular Hemoglobin 30.3 pg (28.0-33.3); Mean Corpuscular Volume 93.1 fL (83.0-100.0); Mean Platelet Volume 11.7 fL (9.4-12.4); Monocytes # 0.5 K/mcL (0.0-1.3); Monocytes % 5.7 %; Neutrophils # 4.9 K/mcL (1.6-8.9); Platelet Count 208 K/mcL (140-400); Red Blood Count 3.76 M/mcL (4.19-5.50); Red Cell Distribution Width 14.3 % (11.5-14.5); Segmented Neutrophils % 62.2 %
[2016-12-13 08:33] LABS: BUN/Creatinine Ratio 12 (6-26); Blood Urea Nitrogen 16 mg/dL (8-26); Calcium 8.6 mg/dL (8.6-10.8); Carbon Dioxide 26 mEq/L (19-29); Chloride 105 mEq/L (98-109); Glucose 98 mg/dL (70-99); Osmolality,Calculated 285 (280-300); Potassium 3.8 mEq/L (3.5-4.5); Sodium 137 mEq/L (136-145); eGFR For African Americans > 60 (> 60); eGFR For Non-African Americans 56 (> 60)
[2016-12-13] MEDS: Magnesium Oxide 400 MG TABLET PO SCH (08:38)
[2016-12-13] MEDS: Finasteride 5 MG TABLET PO SCH (08:39)
[2016-12-13] MEDS: Sulfamethoxazole/Trimeth DS 1 EACH TABLET PO SCH ×2 (08:39→20:33)
--- NOTE | 2016-12-13 10:08 | Cardiology Progress Note ---
Date of Encounter: 12/13/16 Time of Encounter: 08:45 Assessment and Plan (1) Atrial fibrillation with RVR Current Visit: Yes Status: Acute Patient received cardioversion for A. fib RVR persistent with medication use. Per cardioversion report patient converted to sinus rhythm but then converted back into A. fib Plan: Increase patient's metoprolol from 25 mg twice a day to 50 mg twice a day starting now. (2) Atrial fibrillation with rapid ventricular response Current Visit: Yes Status: Acute Discussion w patient/family: The assessment and plan as outlined above was discussed with the patient and/or family members who expressed understanding and agreement. All questions were answered. Thank you for involving us in the care of your patient. Please call with any questions. Subjective Principal diagnosis: A. fib RVR Interval history: Patient seen and examined at bedside this a.m. Patient status post one day failed cardioversion for A. fib RVR. Patient currently states he has no issues and feels a lot better than he did yesterday. Patient denies any complaints overnight. Objective Vital Signs, Last 4 Hours Temp Pulse Resp BP Pulse Ox 12/13/16 06:50 98.2 F 66 16 118/72 100 General: Conversant, No Apparent Distress HEENT: Atraumatic, Normocephaly, Mucus Membranes Moist Neck: No JVD, Normal carotid pulses Cardiac: Other (Irregularly irregular heart rate and rhythm) Lungs: Normal Breath Sounds, No Wheeze, Rales, Rhonchi Neuro: Alert and responsive, No focal deficits noted Abdomen: Soft, Non-Tender Skin: No rashes noted on visualized skin Musculoskeletal: No Chest Wall Tenderness Extremities: No Clubbing, No Cyanosis, No Edema, Other (Pulses match auscultated heart sounds) Results 12/13/16 07:53 12/13/16 07:53 Lab Results 12/13/16 12/13/16 07:53 07:53 WBC 7.8 Hgb 11.4 L Hct 35.0 L Plt Count 208 Sodium 137 Potassium 3.8 Chloride 105 Carbon Dioxide 26 BUN 16 Creatinine 1.29 H Glucose 98 Calcium 8.6 - Imaging and Cardiology Other Results: Cardioversion report reviewed - EKG Interpretation EKG results cardiology: personally reviewed (EKG taken 12/13/2016 and 0802 hrs. shows A. fib RVR at a rate of [address] elevations or depressions in any leads) Consult Discharge Plan - Plan Referrals: Ines Ramirez, ZAY [Primary Care Provider] - (web request 12/13/2016)
--- NOTE | 2016-12-13 14:40 | Electrocardiograph Report ---
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
--- NOTE | 2016-12-13 15:29 | Internal Med Progress Note ---
Date of Encounter: 12/13/16 Time of Encounter: 11:45 - Assessment and plan (1) Atrial fibrillation Current Visit: Yes Status: Chronic Assessment and plan: Currently rate controlled. Underwent cardioversion yesterday, which was unsuccessful and patient reverted back to atrial fibrillation. Cardiology follow-up appreciated, recommended increasing metoprolol. Continue telemetric monitoring. Continue anticoagulation with Xarelto for now. Patient is thinking about repeat cardioversion. Qualifiers: Atrial fibrillation type: paroxysmal Qualified Code(s): I48.0 - Paroxysmal atrial fibrillation (2) Essential hypertension Current Visit: Yes Status: Chronic Assessment and plan: Blood pressure noted to be well controlled. Continue home medications. (3) Depression Current Visit: Yes Status: Chronic Qualifiers: Depression Type: unspecified Qualified Code(s): F32.9 - Major depressive disorder, single episode, unspecified (4) JO (obstructive sleep apnea) Current Visit: Yes Status: Chronic (5) BPH (benign prostatic hyperplasia) Current Visit: Yes Status: Chronic Qualifiers: Prostatic enlargement morphology: unspecified morphology Lower urinary tract symptom presence: symptoms present Qualified Code(s): N40.1 - Benign prostatic hyperplasia with lower urinary tract symptoms (6) Hypothyroidism Current Visit: Yes Status: Acute Assessment and plan: TSH noted to be high, close to 10. Free T4 noted to be low, 0.52. Patient likely has primary hypothyroidism, started on levothyroxine. Qualifiers: Hypothyroidism type: unspecified Qualified Code(s): E03.9 - Hypothyroidism , unspecified - Subjective Interval history: No chest pain, palpitations, shortness of breath. Underwent cardioversion yesterday but reverted back to atrial fibrillation. - Constitutional Vitals: Temp Pulse Resp BP Pulse Ox 97.7 F 94 16 122/87 100 12/13/16 11:24 12/13/16 11:24 12/13/16 11:24 12/13/16 11:24 12/13/16 11:24 General appearance: Present: A&O X 3, answers questions appropriately - Respiratory Respiratory exam: Present: CTAB. Absent: accessory muscle use, rales, rhonchi, wheezes - Cardiovascular Cardiovascular exam: Present: irregular rhythm, +S1, +S2. Absent: diastolic murmur, gallop, rubs, systolic murmur - GI/Abdominal GI/Abdominal exam: Present: normal bowel sounds, soft, no peritoneal signs. Absent: distended, tenderness Internal Medicine: Result - Labs CBC & Chem 7: 12/13/16 07:53 12/13/16 07:53 Labs: Short CBC 12/13/16 Range/Units 07:53 WBC 7.8 (4.3-11.1) K/mcL Hgb 11.4 L (12.9-16.9) g/dL Hct 35.0 L (37.5-50.1) % Plt Count 208 (140-400) K/mcL Neutrophils # 4.9 (1.6-8.9) K/mcL BMP 12/13/16 07:53 Sodium 137 Potassium 3.8 Chloride 105 Carbon Dioxide 26 BUN 16 Creatinine 1.29 H Glucose 98 Calcium 8.6 - ABG Interpretation ABG results: PT/INR, D-dimer PT 16.8 Seconds (9.4-12.1) H 12/11/16 11:44 Consult Discharge Plan - Plan Referrals: Ines Ramirez, ELECTRICAL ENGINEERING DRAFTSPERSON [Primary Care Provider] - (web request 12/13/2016)
--- NOTE | 2016-12-13 15:56 | Event Note ---
Date of Encounter: 12/13/16 Time of Encounter: 16:00 - Cardiology Event Note I had lengthy discussion with patient and family regarding rate control versus rhythm control strategy. Recommendations to consider Rythmol. Patient and family desire to proceed with rate control strategy at this juncture (he does not desire to proceed with cardioversion again). Currently A. yvrose in the 100's on tele. We'll monitor heart rate and blood pressure overnight with recent beta chandler adjustment. Continue with Xarelto for anticoagulation.
[2016-12-13] MEDS: *HR* Rivaroxaban 10 MG TABLET PO SCH (16:26)
[2016-12-13] MEDS ORDERED: *HR* Metoprolol 5 MG/5 ML VIAL IVP ONE (16:38)
--- NOTE | 2016-12-13 17:09 | Event Note ---
Date of Encounter: 12/13/16 Time of Encounter: 16:55 Patient complain of substernal chest discomfort started 30 minutes ago. Patient states pain symptoms similar to what he felt prior to admission after taking Cardizem. Patient has not had any Cardizem since then. Patient states pressure-like substernal pain 8 out of 10 constant. Patient was administered 0.4 mg sublingual nitroglycerin. Patient's symptoms decrease to 5/10. EKG was taken which showed A. fib RVR at a rate of 136. Blood pressure is checked at 120/80. Administered 5 mg Lopressor IV. Patient's pain symptoms continue to diminish. We will continue to monitor patient and treat to control heart rate.
[2016-12-13] MEDS: *HR* Metoprolol 5 MG/5 ML VIAL IVP PRN (18:46)
[2016-12-14] MEDS: *HR* Metoprolol 5 MG/5 ML VIAL IVP PRN (03:25)
[2016-12-14] MEDS: Levothyroxine 25 MCG TABLET PO SCH (05:40)
[2016-12-14] MEDS: Finasteride 5 MG TABLET PO SCH (09:22)
[2016-12-14] MEDS: Sulfamethoxazole/Trimeth DS 1 EACH TABLET PO SCH (09:22)
[2016-12-14] MEDS: Magnesium Oxide 400 MG TABLET PO SCH (09:22)
--- NOTE | 2016-12-14 09:52 | Cardiology Progress Note ---
Date of Encounter: 12/14/16 Time of Encounter: 08:30 Assessment and Plan (1) Atrial fibrillation with RVR Current Visit: Yes Status: Acute Patient received cardioversion for A. fib RVR persistent with medication use. Per cardioversion report patient converted to sinus rhythm but then converted back into A. fib. Patient is decided on further medical management for rate control outpatient and will follow up with cardiology within 1-2 weeks for reassessment. Patient's heart rhythm currently maintaining A. fib but rate 70s to 80s. And currently asymptomatic. Plan: Increase patient's metoprolol from 50 mg twice a day to 75 mg twice a day starting now. Patient will continue on Saturday 5 mg twice a day at home. Follow -up appointment scheduled. Discussed patient that if he has any new symptoms of chest pain or concerning symptoms that he should follow up with the emergency department if needed. Patient understands and agrees treatment and plan. Cardiology signing off. (2) Atrial fibrillation with rapid ventricular response Current Visit: Yes Status: Acute Discussion w patient/family: The assessment and plan as outlined above was discussed with the patient and/or family members who expressed understanding and agreement. All questions were answered. Thank you for involving us in the care of your patient. Please call with any questions. Subjective Principal diagnosis: A. fib RVR Interval history: Patient seen and examined at bedside this a.m. patient states that he is not having any pain or shortness of breath. Patient states he had 2 episodes of chest tightness mid substernal area like previous episodes but was given metoprolol 5 mg each time and symptoms resolved. Patient has no complaints at this time. Patient is still on board with medical management for rate control at home and follow up with cardiology within 2 weeks Objective Vital Signs, Last 4 Hours Temp Pulse Resp BP Pulse Ox 12/14/16 06:41 98.2 F 69 18 121/73 98 General: Conversant, No Apparent Distress HEENT: Atraumatic, Normocephaly, Mucus Membranes Moist Neck: No JVD, Normal carotid pulses Cardiac: No Murmur Lungs: Normal Breath Sounds, No Wheeze, Rales, Rhonchi Neuro: Alert and responsive, No focal deficits noted Abdomen: Soft, Non-Tender Skin: No rashes noted on visualized skin Musculoskeletal: No Chest Wall Tenderness Extremities: No Clubbing, No Cyanosis, No Edema, Normal Pulses Results 12/13/16 07:53 12/13/16 07:53 Lab Results 12/14/16 08:01 Troponin I 0.00 - EKG Interpretation EKG results cardiology: personally reviewed Consult Discharge Plan - Plan Referrals: Ines Ramirez CNP [Primary Care Provider] - (web request 12/13/2016)
[2016-12-14 11:00] VITALS: BP 108/74
--- NOTE | 2016-12-14 16:11 | Discharge Summary ---
Date of Encounter: 12/14/16 Time of Encounter: 16:09 - Discharge Diagnosis (1) Atrial fibrillation Priority: Primary Status: Chronic Qualifiers: Atrial fibrillation type: persistent Qualified Code(s): I48.1 - Persistent atrial fibrillation (2) Essential hypertension Priority: Secondary Status: Chronic (3) Depression Priority: Secondary Status: Chronic Qualifiers: Depression Type: unspecified Qualified Code(s): F32.9 - Major depressive disorder, single episode, unspecified (4) JO (obstructive sleep apnea) Priority: Secondary Status: Chronic (5) BPH (benign prostatic hyperplasia) Priority: Secondary Status: Chronic Qualifiers: Prostatic enlargement morphology: unspecified morphology Lower urinary tract symptom presence: symptoms present Qualified Code(s): N40.1 - Benign prostatic hyperplasia with lower urinary tract symptoms (6) Hypothyroidism Priority: Primary Status: Acute Qualifiers: Hypothyroidism type: unspecified Qualified Code(s): E03.9 - Hypothyroidism , unspecified - Discharge Medications Home Medications: Albuterol Sulfate [Albuterol Inhaler] 2 puff IH Q4H PRN 03/01/16 [History] Indapamide [Lozol] 2.5 mg PO DAILY 03/01/16 [History] Sertraline [Zoloft] 25 mg PO DAILY 03/01/16 [History] Allopurinol [Zyloprim] 300 mg PO DAILY 10/31/16 [History] Chlorphen/Pseudoeph/Ibuprofen [Advil Allergy Sinus Caplet] 1 tab PO BID PRN 09/14 [History] Ibuprofen [Motrin] 600 mg PO Q6HR PRN 10/31/16 [History] Montelukast [Singulair] 10 mg PO DAILY 10/31/16 [History] Potassium Chloride [Klor-Con 10] 10 meq PO DAILY 10/31/16 [History] Trazodone HCl 100 mg PO HS PRN 10/31/16 [History] Magnesium Oxide [Mag-Ox] 400 mg PO DAILY #30 tablet 11/04/16 [Rx] Rivaroxaban [Xarelto] 20 mg PO 1700 #30 tablet 11/04/16 [Rx] Albuterol Neb [Proventil Neb] 2.5 mg IH TID 12/11/16 [History] Finasteride [Proscar] 5 mg PO DAILY 12/11/16 [History] Sulfamethoxazole/Trimeth DS [Bactrim Ds] 1 tab PO BID 12/11/16 [History] Levothyroxine [Synthroid] 25 mcg PO DAILY@0630 tablet 12/14/16 [Rx] Metoprolol [Lopressor] 75 mg PO BID tablet 12/14/16 [Rx] Allergies/Adverse Reactions: Allergies cephalexin [From Keflex] Allergy (Verified 12/11/16 11:39) Swelling of Lip/Tongue/Throat acetaminophen [From Tylenol] Adverse Reaction (Verified 12/11/16 11:39) See Comments "It effects my liver" Procedures/tests Complete & Pending: Procedures Performed prior 72 hours Category Date Time Status CL Cardioversion [CL] Routine Toolmaker 12/12/16 12:16 Stop Req CL Cardioversion [CL] Routine Toolmaker 12/12/16 16:16 Ordered ECG 12 lead ECG [ECG] Routine Y 12/12/16 10:00 Completed EKG [ECG 12 lead ECG] [ECG] Stat Y 12/13/16 07:37 Completed EKG [ECG 12 lead ECG] [ECG] Stat Y 12/14/16 04:14 Completed EV cardioversion Routine Y 12/12/16 17:00 Completed Date of admission: 12/11/16 15:15 Primary care physician: Ines Ramirez CNP Consults: 12/11/16 18:04 Consult to Physician [CONS] Routine Consulting Provider: Vazquez Grewal Reason for Consult: Atrial fibrillation Call Completed: Yes Discharging clinician: Donna Coleman Anticipated date of discharge: 12/14/16 - Patient Status Disposition: Transfer Critical Access Hosp Condition: Good Functional capacity at discharge: independent ambulation Overall status at discharge: patient is not back to baseline - Discharge Instructions Follow Up With: Ines Ramirez CNP [Primary Care Provider] - (web request 12/13/2016) - Diet and Activity Diet: low fat, low cholesterol, low salt diet Hospital course: Mr. Gonzales is a 66 year old male with recently diagnosed atrial fibrillation was admitted with subjective dyspnea and chest tightness. Patient was discharged home on oral Cardizem, beta chandler and anticoagulation with Xarelto. However, he discontinued Cardizem as he claims he develops shortness of breath and chest pressure with Cardizem. His heart rate was noted to be in low 100s in the emergency room at the time of admission. Patient was seen by cardiology and started on low-dose metoprolol (patient was noted to be on propranolol at home, which is switched to metoprolol now). He had an unsuccessful attempt with cardioversion and he quickly converted back to atrial fibrillation. His metoprolol is being uptitrated and he is currently at 75 mg twice daily. His symptoms have improved overall and he is feeling well but patient's heart rate is not completely well controlled, it is noted to be increasing up to 120s and 130s with any kind of movement. Patient currently refuses a second attempt at cardioversion, refuses Cardizem or Propafenone. Patient and family are currently seeking second opinion and request to be transferred to in [place], [place]. Case has been discussed with , admitting hospitalist at [facility], who has kindly accepted this patient's care. He is medically stable for this transfer. - Time Spent with Patient Total time spent providing and/or coordinating discharge services: Greater than 30 minutes (50 min) - Constitutional Vitals: Temp Pulse Resp BP Pulse Ox 98.6 F 82 19 108/74 93 12/14/16 15:40 12/14/16 15:40 12/14/16 15:40 12/14/16 15:40 12/14/16 15:40 General appearance: Present: A&O X 3, answers questions appropriately - Respiratory Respiratory exam: Present: CTAB. Absent: accessory muscle use, rales, rhonchi, wheezes - Cardiovascular Cardiovascular exam: Present: irregular rhythm, +S1, +S2. Absent: diastolic murmur, gallop, rubs, systolic murmur
[2016-12-14] MEDS: *HR* Rivaroxaban 10 MG TABLET PO SCH (16:26)
--- NOTE | 2016-12-14 17:29 | Electrocardiograph Report ---
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
--- NOTE | 2016-12-15 12:39 | Electrocardiograph Report ---
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
== END 2016-12-14 18:13 | disposition short-term general hospital (02) ==
LOC: EMEROO 11:22 → 2ANU 11:22
PROVIDERS: ADMIT Internal Medicine; ATTEND Internal Medicine

== ENCOUNTER 2017-03-12 16:00 | Inpatient (IN) ==
[2017-03-12 16:32] LABS: Hematocrit 28.2 % (37.5-50.1); Hemoglobin 8.8 g/dL (12.9-16.9); Mean Corpuscular HGB Conc 31.2 g/dL (31.6-35.5); Mean Corpuscular Hemoglobin 27.2 pg (28.0-33.3); Mean Corpuscular Volume 87.3 fL (83.0-100.0); Mean Platelet Volume 9.8 fL (9.4-12.4); Platelet Count 292 K/mcL (140-400); Red Blood Count 3.23 M/mcL (4.19-5.50); Red Cell Distribution Width 14.6 % (11.5-14.5)
[2017-03-12 16:42] LABS: BUN/Creatinine Ratio 12 (6-26); Blood Urea Nitrogen 13 mg/dL (8-26); Calcium 9.7 mg/dL (8.6-10.8); Carbon Dioxide 31 mEq/L (19-29); Chloride 102 mEq/L (98-109); Glucose 96 mg/dL (70-99); Osmolality,Calculated 288 (280-300); Potassium 3.4 mEq/L (3.5-4.5); Sodium 139 mEq/L (136-145); eGFR For African Americans > 60 (> 60); eGFR For Non-African Americans > 60 (> 60)
[2017-03-12 16:55] LABS: Bilirubin,Urine Negative (Negative); Blood,Urine Large (Negative); Glucose,Urine (UA) Normal (Normal); Ketones,Urine Negative (Negative); Leukocyte Esterase,Urine Moderate (Negative); Nitrite,Urine Negative (Negative); Protein,Urine >=300 mg/dL (Neg-Trace); Specific Gravity,Urine 1.015 (1.010-1.025); Urobilinogen,Urine Normal (Normal)
[2017-03-12 16:56] LABS: Color,Urine Red (Yellow)
[2017-03-12 16:57] LABS: Clarity,Urine Turbid (Clear)
--- NOTE | 2017-03-12 18:27 | Emergency Department Note ---
Disposition Clinical Impression: Anemia, Dyspnea, Hematuria, Fatigue Disposition: Admitted As Inpatient Condition: Good Time of Disposition: 19:31 General Adult HPI - General Chief complaint: ED Weakness Stated complaint: CP/SOB Time Seen by Provider: 03/12/17 16:21 Source: patient Mode of arrival: ambulatory Limitations: no limitations Nursing Notes Reviewed: Yes Vital Signs Reviewed: Yes - History of Present Illness HPI Narrative: Patient is a 67-year-old male with past medical history of A. fib with recent ablation. 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 He says that he was here 4 days ago, discharged home. He was seen for anemia. He reports that he was given 2 units of packed red blood cells. He also had a colonoscopy that showed polyps. He states that since leaving the hospital, he has resumed his blood thinner and has had gross hematuria for 5 days. He has taken his blood thinner every day for the past 5 days. He does report previous history of hematuria in October. He had a cystoscopy that he states showed BPH with possible bleeding from his prostate. He is planned to have a TURP at some point but states that he did not have it back in October due to being on blood thinners. Currently, the patient complains of shortness of breath. He did have one episode of mild left-sided chest pain described as a dull ache that occured at rest and lasted for a few minutes and then went away, no radiation, no associated nausea, vomiting, sweating. This happened earlier today. He is concerned that his blood levels are low again. Denies any blood in stool, dark stools. Pain Scale: 2 - Related Data Home Medications Medication Instructions Recorded Confirmed Albuterol Sulfate [Albuterol 2 puff IH Q4H PRN 03/01/16 03/12/17 Inhaler] Indapamide [Lozol] 1.25 mg PO DAILY 03/01/16 03/12/17 Sertraline [Zoloft] 50 mg PO DAILY 03/01/16 03/12/17 Allopurinol [Zyloprim] 300 mg PO DAILY 10/31/16 03/12/17 Montelukast [Singulair] 10 mg PO DAILY 10/31/16 03/12/17 Potassium Chloride [Klor-Con 10] 10 meq PO BID 10/31/16 03/12/17 Trazodone HCl 100 mg PO HS PRN 10/31/16 03/12/17 Albuterol Neb [Proventil Neb] 2.5 mg IH TID PRN 12/11/16 03/12/17 Finasteride [Proscar] 5 mg PO DAILY 12/11/16 03/12/17 Metoprolol [Lopressor] 25 mg PO BID 03/05/17 03/12/17 Propafenone HCl 300 mg PO Q8H 03/05/17 03/12/17 Levothyroxine [Synthroid] 50 mcg PO 0630 03/12/17 03/12/17 Rivaroxaban [Xarelto] 20 mg PO Q48H 03/12/17 03/12/17 Previous Rx's Medication Instructions Recorded Aspirin Enteric Coated [Aspirin EC] 81 mg PO DAILY 03/08/17 Omeprazole [PriLOSEC] 20 mg PO DAILY #30 03/08/17 Allergies Allergy/AdvReac Type Severity Reaction Status Date / Time cephalexin [From Keflex] Allergy Swelling Verified 03/12/17 16:09 of Lip/Tongue/Throat acetaminophen [From Tylenol] AdvReac See Verified 03/12/17 16:09 Comments All systems ED: reviewed and negative except as stated. Constitutional: Denies: fever Cardiovascular: Reports: chest pain, dyspnea on exertion. Denies: palpitations Respiratory: Reports: dyspnea. Denies: cough Gastrointestinal: Denies: abdominal pain, nausea, vomiting, diarrhea Genitourinary: Reports: hematuria. Denies: urgency, dysuria, frequency Neurological: Denies: headache, weakness, numbness, paresthesias Endocrine: Reports: fatigue Hematological/Lymphatic: Reports: easy bleeding Past Medical History - Past Medical History Attestation: Yes The following information was validated with the patient. Source: patient Medical history: Reports: asthma, atrial fibrillation, hypertension Surgical history: Reports: no surgical history Psychiatric history: Reports: depression - Social History Smoking Status: Former smoker Smokeless Tobacco Status: Yes Alcohol use: Reports: none, occasionally Drug use: Reports: none Physical Exam - General Limitations: no limitations General appearance: alert, in no apparent distress - Head Head exam: atraumatic, normocephalic, normal inspection - Eye Eye exam: Present: normal appearance, PERRL, EOMI - ENT ENT exam: normal exam, normal oropharynx, mucous membranes moist - Neck Neck exam: Present: normal inspection, full ROM, trachea midline - Chest Chest inspection: Present: normal inspection, symmetric chest wall rise - Respiratory Respiratory exam: Present: normal lung sounds bilaterally. Absent: respiratory distress, wheezes, stridor - Cardiovascular Cardiovascular exam: Present: regular rate, normal rhythm, normal heart sounds - Abdominal Exam Abdominal exam: Present: soft, Non-Tender. Absent: tenderness, distention, guarding, rebound, rigidity - Extremities Exam Extremities exam: Present: normal inspection, full ROM. Absent: tenderness, pedal edema - Neurological Exam Neurological exam: Present: alert, oriented X3 - Psychiatric Psychiatric exam: Present: normal affect, normal mood - Skin Skin exam: Present: warm, dry, intact, normal color. Absent: pallor Course Course Narrative: Vitals within normal limits on exam. Physical exam was benign. Basic labs showed hemoglobin of 8.8, up from previous hemoglobin of 7.9 upon discharge. No elevation in white blood cell count. Creatinine within normal limits. Urinalysis shows large amount of blood but no signs of UTI. Troponin negative. Chest x-ray negative. EKG shows normal sinus rhythm with no acute ST changes. I talked with urology who requests that the patient stop his blood thinner, they will see and evaluate the patient in the morning. We will admit the patient for shortness of breath. We will not transfuse at this time but will admit for trending of troponin, monitoring of hemoglobin. If his bleeding is to worsen or if the hemoglobin or BP drops, urology would like to be contacted again. Vital Signs Temperature 97.9 F 03/12/17 16:07 Pulse Rate 62 03/12/17 16:07 Respiratory Rate 16 03/12/17 16:07 Blood Pressure 120/54 03/12/17 16:07 O2 Sat by Pulse Oximetry 99 03/12/17 16:07 Temperature 97.9 F 03/12/17 16:07 Pulse Rate 58 03/12/17 19:55 Respiratory Rate 18 03/12/17 19:59 Blood Pressure 136/89 03/12/17 19:59 O2 Sat by Pulse Oximetry 96 03/12/17 19:55 Oxygen Delivery Oxygen Delivery Room Air Medical Decision Making - [facility] Narrative Medical decision making narrative: Vitals within normal limits on exam. Physical exam was benign. Basic labs showed hemoglobin of 8.8, up from previous hemoglobin of 7.9 upon discharge. No elevation in white blood cell count. Creatinine within normal limits. Urinalysis shows large amount of blood but no signs of UTI. Troponin negative. Chest x-ray negative. EKG shows normal sinus rhythm with no acute ST changes. I talked with urology who requests that the patient stop his blood thinner, they will see and evaluate the patient in the morning. We will admit the patient for shortness of breath. We will not transfuse at this time but will admit for trending of troponin, monitoring of hemoglobin. If his bleeding is to worsen or if the hemoglobin or BP drops, urology would like to be contacted again. - Medical Records Medical records reviewed: Yes I reviewed the patient's medical records. - Lab Data Lab results reviewed: Yes I reviewed the patient's lab results. Result diagrams: 03/12/17 16:20 03/12/17 16:20 Lab Results 03/12/17 03/12/17 03/12/17 Range/Units 16:20 16:20 16:20 WBC 7.2 (4.3-11.1) K/mcL RBC 3.23 L (4.19-5.50) M/mcL Hgb 8.8 L (12.9-16.9) g/dL Hct 28.2 L (37.5-50.1) % MCV 87.3 (83.0-100.0) fL MCH 27.2 L (28.0-33.3) pg MCHC 31.2 L (31.6-35.5) g/dL RDW 14.6 H (11.5-14.5) % Plt Count 292 (140-400) K/mcL MPV 9.8 (9.4-12.4) fL PT (9.4-12.1) Seconds INR APTT (26.0-36.0) Seconds Sodium 139 (136-145) mEq/L Potassium 3.4 L (3.5-4.5) mEq/L Chloride 102 (98-109) mEq/L Carbon Dioxide 31 H (19-29) mEq/L BUN 13 (8-26) mg/dL Creatinine 1.05 (0.72-1.25) mg/dL Est GFR ( Amer) > 60 (> 60) Est GFR (Non-Af Amer) > 60 (> 60) BUN/Creatinine Ratio 12 (6-26) Glucose 96 (70-99) mg/dL Calculated Osmolality 288 (280-300) Calcium 9.7 (8.6-10.8) mg/dL Troponin I (0-0.03) ng/mL B-Natriuretic Peptide (0-100) pg/mL Ur Specimen Adequacy Urine Color (Yellow) Urine Clarity (Clear) Urine pH (5.0-8.0) pH Units Ur Specific Sebastian (1.010-1.025) Urine Protein (Neg-Trace) mg/dL Urine Glucose (UA) (Normal) mg/dL Urine Ketones (Negative) mg/dL Urine Blood (Negative) Urine Nitrite (Negative) Urine Bilirubin (Negative) Urine Urobilinogen (Normal) mg/dL Ur Leukocyte Esterase (Negative) Ur Culture Indicated? (NO) Blood Type O POSITIVE Antibody Screen NEGATIVE 03/12/17 03/12/17 03/12/17 Range/Units 16:20 16:20 16:40 WBC (4.3-11.1) K/mcL RBC (4.19-5.50) M/mcL Hgb (12.9-16.9) g/dL Hct (37.5-50.1) % MCV (83.0-100.0) fL MCH (28.0-33.3) pg MCHC (31.6-35.5) g/dL RDW (11.5-14.5) % Plt Count (140-400) K/mcL MPV (9.4-12.4) fL PT (9.4-12.1) Seconds INR APTT (26.0-36.0) Seconds Sodium (136-145) mEq/L Potassium (3.5-4.5) mEq/L Chloride (98-109) mEq/L Carbon Dioxide (19-29) mEq/L BUN (8-26) mg/dL Creatinine (0.72-1.25) mg/dL Est GFR ( Amer) (> 60) Est GFR (Non-Af Amer) (> 60) BUN/Creatinine Ratio (6-26) Glucose (70-99) mg/dL Calculated Osmolality (280-300) Calcium (8.6-10.8) mg/dL Troponin I 0.00 (0-0.03) ng/mL B-Natriuretic Peptide 119 H (0-100) pg/mL Ur Specimen Adequacy See below A Urine Color Red A (Yellow) Urine Clarity Turbid A (Clear) Urine pH 7.0 (5.0-8.0) pH Units Ur Specific Sebastian 1.015 (1.010-1.025) Urine Protein >=300 H (Neg-Trace) mg/dL Urine Glucose (UA) Normal (Normal) mg/dL Urine Ketones Negative (Negative) mg/dL Urine Blood Large H (Negative) Urine Nitrite Negative (Negative) Urine Bilirubin Negative (Negative) Urine Urobilinogen Normal (Normal) mg/dL Ur Leukocyte Esterase Moderate H (Negative) Ur Culture Indicated? YES A (NO) Blood Type Antibody Screen 03/12/17 Range/Units 18:54 WBC (4.3-11.1) K/mcL RBC (4.19-5.50) M/mcL Hgb (12.9-16.9) g/dL Hct (37.5-50.1) % MCV (83.0-100.0) fL MCH (28.0-33.3) pg MCHC (31.6-35.5) g/dL RDW (11.5-14.5) % Plt Count (140-400) K/mcL MPV (9.4-12.4) fL PT 11.7 (9.4-12.1) Seconds INR 1.1 APTT 20.2 L (26.0-36.0) Seconds Sodium (136-145) mEq/L Potassium (3.5-4.5) mEq/L Chloride (98-109) mEq/L Carbon Dioxide (19-29) mEq/L BUN (8-26) mg/dL Creatinine (0.72-1.25) mg/dL Est GFR ( Amer) (> 60) Est GFR (Non-Af Amer) (> 60) BUN/Creatinine Ratio (6-26) Glucose (70-99) mg/dL Calculated Osmolality (280-300) Calcium (8.6-10.8) mg/dL Troponin I (0-0.03) ng/mL B-Natriuretic Peptide (0-100) pg/mL Ur Specimen Adequacy Urine Color (Yellow) Urine Clarity (Clear) Urine pH (5.0-8.0) pH Units Ur Specific Sebastian (1.010-1.025) Urine Protein (Neg-Trace) mg/dL Urine Glucose (UA) (Normal) mg/dL Urine Ketones (Negative) mg/dL Urine Blood (Negative) Urine Nitrite (Negative) Urine Bilirubin (Negative) Urine Urobilinogen (Normal) mg/dL Ur Leukocyte Esterase (Negative) Ur Culture Indicated? (NO) Blood Type Antibody Screen - Radiology Data Radiology results reviewed: Yes I reviewed the patient's radiology results. Chest X-Ray 03/12/17 18:14 IMPRESSION: Stable portable study. D/ / Dayanna Trinidad Cha, MD / Dayanna Trinidad Cha, MD Interpreting Provider: Dayanna Trinidad Cha, MD - EKG Data EKG #1 EKG attestation: Yes I reviewed and interpreted this EKG. EKG results narrative: 03/12/2017 at 16:16. Normal sinus rhythm. Rate 62. MD 194. QRS 96. QTC 426. Normal axis. No acute ST elevation or depression. S.B.A.R. - S.B.A.R. Situation: Demographics, MOA Background: Presenting Complaint, Relevant PMH, Meds, & Allergies Assessment: Vital Signs, Course and respsone to treatment, Exam Concerns, Patient/Family Expectation, Pertinant Lab Results Recommendation: Barrier(s) to disposition, Recommendation based on pending studies, treatments, or consults S.B.A.R. Report Given to: Dr. Darin [email or web address] Repor Time: 19:31 Attestation Statement - Attestation Attestation: I, Vazquez Vargas, examined this patient and my medical decision-making was reviewed with the SUPERIOR COURT JUDGE/PA/Advanced Practice Nurse/Resident Physician. I agree with the documented findings, disposition and treatment plan as described except to the extent set forth below. 67-year-old male presents emergency department for concerns of increasing shortness of breath and chest pain. Patient states he has had a complicated hospital history over the past few weeks. He was diagnosed with hematuria can Ronnie to a possible lesion on his prostate. He was seen by Dr. Vargas and started on finasteride and is scheduled for a TURP within the next few weeks. Patient states he started to have repeated episodes of hematuria with grossly bloody urine over the past few days. He is concerned that he had become anemic and needed transfusion. Patient hemoglobin is 8.8 on laboratory evaluation. Resident spoke with Dr. Alvarado who recommended admission to the hospital and will see the patient in the morning. Patient is hemodynamically stable and does not need transfusion in the emergency department today. Initial EKG showed normal sinus rhythm with a rate of 62 without evidence of STEMI. Initial troponin negative. Patient's symptoms likely secondary to symptomatic anemia. Patient comfortable with the plan to be admitted to the hospital for further care and evaluation of his chest pain, shortness of breath and his hematuria.
[2017-03-12 19:04] LABS: INR 1.1; Prothrombin Time 11.7 Seconds (9.4-12.1)
[2017-03-12 19:19] LABS: Activated Partial Thrombo Time 20.2 Seconds (26.0-36.0)
--- NOTE | 2017-03-12 20:56 | Urology - Consult Note ---
Date of Encounter: 03/13/17 Time of Encounter: 07:00 - Assessment and Plan (1) Gross hematuria Current Visit: Yes Status: Acute Assessment and plan: the gross hematuria is likely from BPH or UTI exacerbated by the xarelto. I recommend stopping xarelto (done). starting finasteride. IV hydration. ABX until cultures final. monitor H&H closely to verify anemia is not worsening. This AM hgb has dropped but this may be hydration. the urine is starting to become more transparent red. will hold off on urinary catheter or surgical intervention for now unless large clots, urinary retention, or persistant hematuria with large drop in hemoglobin. will follow closely. Urology CN:HPI Consult date: 03/13/17 Reason for consult Urology: Gross Hematuria History of present illness: pt known to urology service. Dr Resendiz performed an office cystoscopy bc of urinary retention in october. found to have BPH, large bladder diverticulum and trabeculations. Was scheduled for TURP but awaiting cards clearance and ability to stop anticoagulation. presents today with continued gross hematuria after restarting xarelto on saturday. feels like he has symptomatic anemia. passing dark hematuria but no clots or difficulty urinating. Past Med Surg Social Fam HX - Past Medical History Medical history: asthma, atrial fibrillation, hypertension Psychiatric history: depression - Past Surgical History Surgical History: no surgical history - Social History Smoking Status: Former smoker Smokeless Tobacco Status: Yes Alcohol use: none, occasionally Drug use: none - Family History Mother Hx Family Cardiac Disorders: Yes (CAD) Hx Family Cancer: Yes (colon cancer) Hx Family Endocrine Disorder: Yes (DM) Medications and Allergies Albuterol Sulfate [Albuterol Inhaler] 2 puff IH Q4H PRN 03/01/16 [History] Indapamide [Lozol] 1.25 mg PO DAILY 03/01/16 [History] Sertraline [Zoloft] 50 mg PO DAILY 03/01/16 [History] Allopurinol [Zyloprim] 300 mg PO DAILY 10/31/16 [History] Montelukast [Singulair] 10 mg PO DAILY 10/31/16 [History] Potassium Chloride [Klor-Con 10] 10 meq PO BID 10/31/16 [History] Trazodone HCl 100 mg PO HS PRN 10/31/16 [History] Albuterol Neb [Proventil Neb] 2.5 mg IH TID PRN 12/11/16 [History] Finasteride [Proscar] 5 mg PO DAILY 12/11/16 [History] Metoprolol [Lopressor] 25 mg PO BID 03/05/17 [History] Propafenone HCl 300 mg PO Q8H 03/05/17 [History] Aspirin Enteric Coated [Aspirin EC] 81 mg PO DAILY 03/08/17 [Rx] Omeprazole [PriLOSEC] 20 mg PO DAILY #30 03/08/17 [Rx] Levothyroxine [Synthroid] 50 mcg PO 0630 03/12/17 [History] Rivaroxaban [Xarelto] 20 mg PO Q48H 03/12/17 [History] 3 Allergy/AdvReac Type Severity Reaction Status Date / Time cephalexin [From Keflex] Allergy Swelling Verified 03/12/17 16:09 of Lip/Tongue/Throat acetaminophen [From Tylenol] AdvReac See Verified 03/12/17 16:09 Comments Review of Systems - Constitutional fatigue, no fever(s) - EENT Nose, mouth and throat: dizziness - Cardiovascular chest pain - Respiratory no cough - Gastrointestinal no abdominal pain - Genitourinary hematuria - Musculoskeletal no back pain - Integumentary no erythema - Neurological no confusion - Psychiatric no anxiety - Hematologic/Lymphatic easy bleeding - Allergic/Immunologic no throat swelling Exam Initial Vital Signs Temp Pulse Resp BP Pulse Ox 97.9 F 62 16 120/54 99 03/12/17 16:07 03/12/17 16:07 03/12/17 16:07 03/12/17 16:07 03/12/17 16:07 - General physical appearance Present: well developed, no distress - Eyes Present: PERRL - ENT Present: normal nares - Neck Present: no masses - Respiratory Present: normal respiratory effort - Cardiovascular Cardiovascular exam IM: RRR - Abdomen Abdomen: Present: soft - Integumentary Present: no rash - Neurologic Present: normal coordination. Absent: disoriented, confused - Additional Findings no significant suprapubic distention. Urology Results - Labs 03/13/17 04:40 03/13/17 04:40 Abnormal lab results RBC 3.23 M/mcL (4.19-5.50) L 03/12/17 16:20 Hgb 8.8 g/dL (12.9-16.9) L 03/12/17 16:20 Hct 28.2 % (37.5-50.1) L 03/12/17 16:20 MCH 27.2 pg (28.0-33.3) L 03/12/17 16:20 MCHC 31.2 g/dL (31.6-35.5) L 03/12/17 16:20 RDW 14.6 % (11.5-14.5) H 03/12/17 16:20 APTT 20.2 Seconds (26.0-36.0) L 03/12/17 18:54 Potassium 3.4 mEq/L (3.5-4.5) L 03/12/17 16:20 Carbon Dioxide 31 mEq/L (19-29) H 03/12/17 16:20 B-Natriuretic Peptide 119 pg/mL (0-100) H 03/12/17 16:20 Ur Specimen Adequacy See below A 03/12/17 16:40 Urine Color Red (Yellow) A 03/12/17 16:40 Urine Clarity Turbid (Clear) A 03/12/17 16:40 Urine Protein >=300 mg/dL (Neg-Trace) H 03/12/17 16:40 Urine Blood Large (Negative) H 03/12/17 16:40 Ur Leukocyte Esterase Moderate (Negative) H 03/12/17 16:40 Ur Culture Indicated? YES (NO) A 03/12/17 16:40 All other labs normal. Consult Discharge Plan - Plan Referrals: Ines Ramirez, DRAWING INSTRUCTOR [Primary Care Provider] -
[2017-03-12] MEDS ORDERED: Naloxone 0.4 MG/ML INJ IVP PRN (22:32)
[2017-03-12] MEDS ORDERED: Albuterol 2.5 MG/3 ML NEBULIZER IH PRN (22:35)
[2017-03-12] MEDS ORDERED: 0.9 % Sodium Chloride 1,000 ML IVC SCH (22:45)
--- NOTE | 2017-03-12 23:07 | Internal Med History&Physical ---
<Ingrid Easley - Last Filed: 03/12/17 23:26> Date of Encounter: 03/12/17 Time of Encounter: 23:04 Assessment and Plan (1) Hematuria Current visit: Yes Status: Acute 1 patient has been experiencing dark colored urine, he is on Xarelto. He had a recent episode of anemia and received 2 units PRBCs . Urinalysis was obtained which did reveal UTI. We will hold Xarelto for now 2 we will give Levaquin 3 consulted urology. Patient has BPH and is to undergo a TURP however awaiting clearance from cardiology due to recent ablation-he is supposed to continue xarelto for another 3 months 4 we will give some IV fluids overnight Qualifiers: Hematuria type: unspecified type Qualified Code(s): R31.9 - Hematuria, unspecified (2) Acute cystitis with hematuria Current visit: Yes Status: Acute Patient has been experiencing urinary urgency burning urinalysis indicative of UTI. We will continue with Levaquin pending culture sensitivity (3) Atrial fibrillation Current visit: No Status: Chronic 1 presently he is in sinus rhythm we will hold his Xarelto for now due to hematuria 2 continue Rythmol, metoprolol Qualifiers: Atrial fibrillation type: paroxysmal Qualified Code(s): I48.0 - Paroxysmal atrial fibrillation (4) Essential hypertension Current visit: No Status: Chronic Presently controlled, continue metoprolol (5) JO (obstructive sleep apnea) Current visit: No Status: Chronic Patient refusing CPAP (6) DVT prophylaxis Current visit: Yes Status: Acute LYNNE lewis Internal Medicine - H&P: HPI Chief complaint: Hematuria Admitted From: Emergency Dept Plans for Post Hospital Care: Home History of present illness: Mr. Gonzales is a 67 year old male past history age fibrillation with ablation 1 month ago on Cymbalta L hypertension BPH JO. When the patient he was recently admitted to this hospital for anemia 4 days ago discharged home. At times given 2 units of PRBCs. Colonoscopy that showed some polyps. Since leaving the hospital he has resumed his blood thinner on Saturday. Since that time he has been experiencing hematuria. He does have a history of BPH and is seen by urology. He is to undergo a TURP however his waiting clearance from cardiology to stop his blood thinner. He denies any hematemesis melena or hematochezia. He does admit to urgency and burning on urination. He denies any fevers chills he was nauseous yesterday. He presented to ER because of complaints concerned that he may be anemic again that was completed should reveal hemoglobin 8.8 which was up from previous which was 7.9. Chemistry showed potassium 3.4 troponin 0 BNP was 119 INR 1.1 PT 11.7 PTT 20.2. Urinalysis is amount of blood as well as moderate amount of leuk esterase. Urine cultures had been sent patient was given IV antibiotics. Urology was consulted Dr. Alvarado did see patient in the ER. He has been admitted for further workup evaluation. Presently patient does not appear to be respiratory distress. He denies any chest pain shortness of breath. Lung sounds are clear heart sounds are regular S1-S2 with no rubs clicks, murmurs noted abdomen soft nontender no pedal edema noted. He is hemodialysis the TIME. IV this case with Dr. Zhang who agrees with plan. Past Med Surg Social Fam HX - Past Medical History Medical history: asthma, atrial fibrillation, hypertension Psychiatric history: depression - Past Surgical History Surgical History: no surgical history - Social History Smoking Status: Former smoker Smokeless Tobacco Status: Yes Alcohol use: none Drug use: none - Family History Mother Hx Family Cardiac Disorders: Yes (CAD) Hx Family Cancer: Yes (colon cancer) Hx Family Endocrine Disorder: Yes (DM) Internal Medicine - H&P: Meds Albuterol Sulfate [Albuterol Inhaler] 2 puff IH Q4H PRN 03/01/16 [History] Indapamide [Lozol] 1.25 mg PO DAILY 03/01/16 [History] Sertraline [Zoloft] 50 mg PO DAILY 03/01/16 [History] Allopurinol [Zyloprim] 300 mg PO DAILY 10/31/16 [History] Montelukast [Singulair] 10 mg PO DAILY 10/31/16 [History] Potassium Chloride [Klor-Con 10] 10 meq PO BID 10/31/16 [History] Trazodone HCl 100 mg PO HS PRN 10/31/16 [History] Albuterol Neb [Proventil Neb] 2.5 mg IH TID PRN 12/11/16 [History] Finasteride [Proscar] 5 mg PO DAILY 12/11/16 [History] Metoprolol [Lopressor] 25 mg PO BID 03/05/17 [History] Propafenone HCl 300 mg PO Q8H 03/05/17 [History] Aspirin Enteric Coated [Aspirin EC] 81 mg PO DAILY 03/08/17 [Rx] Omeprazole [PriLOSEC] 20 mg PO DAILY #30 03/08/17 [Rx] Levothyroxine [Synthroid] 50 mcg PO 0630 03/12/17 [History] Rivaroxaban [Xarelto] 20 mg PO Q48H 03/12/17 [History] 3 Allergy/AdvReac Type Severity Reaction Status Date / Time cephalexin [From Keflex] Allergy Swelling Verified 03/12/17 16:09 of Lip/Tongue/Throat acetaminophen [From Tylenol] AdvReac See Verified 03/12/17 16:09 Comments All Systems PM: A 10-system review of systems was performed and is negative for pertinent findings except as documented above in the HPI. - Constitutional Constitutional: no chills, no fever(s), no night sweats - EENT Eyes: no change in vision, no discharge, no pain, no photophobia Nose, mouth and throat: no dysphagia, no nasal discharge, no neck pain, no sore throat - Cardiovascular Cardiovascular ROS IM: no chest pain, no diaphoresis, no dyspnea, no lightheadedness, no palpitations, no syncope - Respiratory Respiratory: no cough, no dyspnea, no wheezing, no excessive phlegm production - Gastrointestinal Gastrointestinal: nausea, no abdominal pain, no diarrhea, no hematemesis, no hematochezia, no melena, no vomiting - Genitourinary Genitourinary ROS male: dysuria, hematuria, urinary hesitancy - Musculoskeletal Musculoskeletal ROS IM: no numbness, no tingling - Integumentary Integumentary IM: no rash, no unusual bruising - Neurological Neurological ROS: no confusion, no convulsions, no focal weakness, no numbness, no tingling, no tremor(s) - Hematologic/Lymphatic Hematologic/Lymphatic: no easy bruising - Constitutional Vitals: Temp Pulse Resp BP Pulse Ox 98.0 F 65 16 128/74 100 03/12/17 21:34 03/12/17 21:34 03/12/17 21:34 03/12/17 21:34 03/12/17 21:34 General appearance: Present: A&O X 3 - Head Head exam: Present: atraumatic, normocephalic - Eye Eye exam: Present: PERRL, conjuntiva pink, sclera anicteric Pupils: Present: PERRL - Neck Neck exam general surgery: Present: supple, trachea midline. Absent: lymphadenopathy - Respiratory Respiratory exam: Present: CTAB. Absent: accessory muscle use, rales, rhonchi, wheezes - Cardiovascular Cardiovascular exam: Present: RRR, +S1, +S2. Absent: diastolic murmur, gallop, rubs, systolic murmur - GI/Abdominal GI/Abdominal exam: Present: normal bowel sounds, soft, no peritoneal signs. Absent: distended, tenderness - Extremities Exam Extremities exam: Present: warm, radial pulses palpable and symmetrical. Absent : calf tenderness, cyanotic, pedal edema - Neurological Exam Neurological exam: Present: CN II-XII intact, oriented X3, no focal deficits. Absent: pronater drift, facial droop, speech deficit - Skin Skin exam: Present: dry, intact Internal Med - H&P Results - Labs CBC & Chem 7: 03/12/17 16:20 03/12/17 16:20 - EKG Data EKG shows normal: sinus rhythm - Diagnostic Studies Other Images Additional comments: Chest X-Ray 03/12/17 18:14 IMPRESSION: Stable portable study. D/ / Dayanna Trinidad Cha, MD / Dayanna Trinidad Cha, MD Interpreting Provider: Dayanna Trinidad Cha, MD <Lai Zhang - Last Filed: 03/13/17 01:44> Date of Encounter: 03/13/17 Time of Encounter: 01:35 - Cardiovascular Cardiovascular ROS IM: no chest pain, no dyspnea - Respiratory Respiratory: no dyspnea, no hemoptysis - Gastrointestinal Gastrointestinal: no hematemesis, no hematochezia, no melena - Genitourinary Genitourinary ROS male: dysuria, hematuria, no flank pain - Constitutional Vitals: Temp Pulse Resp BP Pulse Ox 98.0 F 65 16 128/74 100 03/12/17 21:34 03/12/17 21:34 03/12/17 21:34 03/12/17 21:34 03/12/17 21:34 General appearance: Present: cooperative, A&O X 3, pleasant, no acute distress - Eye Eye exam: Present: PERRL. Absent: scleral icterus - Respiratory Respiratory exam: Present: CTAB. Absent: rales, rhonchi, wheezes - Cardiovascular Cardiovascular exam: Present: RRR, +S1, +S2. Absent: diastolic murmur, systolic murmur - GI/Abdominal GI/Abdominal exam: Present: soft. Absent: tenderness - Extremities Exam Extremities exam: Present: full ROM, warm. Absent: joint swelling - Back Exam Back exam: Absent: CVA tenderness (L), CVA tenderness (R) - Skin Skin exam: Absent: rash Internal Med - H&P Results - Labs CBC & Chem 7: 03/12/17 16:20 03/12/17 16:20 - EKG Data -: EKG Interpreted by Myself EKG shows normal: sinus rhythm - Attending Attestation I discussed the patient PAMUNKEY, PMH, ROS, lab data, and exam findings with Ingrid Easley CNP. I then saw and examined patient independently as well. Patient reports recurrent hematuria since he started Xarelto. He is due to finish his Xarelto at the the end of this month he states. This needs to be confirmed with cardiology, however. He is due to have TURP after stopping Xarelto. He denies any flank pain but he's had some dysuria. Hgb is low but stable compared to his last hgb. We will need to follow serial hemoglobins. He denies any problems at this time. Urology has been consulted and will see him in the morning. Other than my comments above and noted exam findings, I agree with Ingrdi's assessment and plan.
[2017-03-12] MEDS: Finasteride 5 MG TABLET PO SCH (23:17)
[2017-03-12] MEDS: traZODone 50 MG TABLET PO PRN (23:27)
[2017-03-13 05:27] LABS: Basophils % 0.3 %; Eosinophils # 0.7 K/mcL (0.0-0.6); Hematocrit 23.9 % (37.5-50.1); Hemoglobin 7.5 g/dL (12.9-16.9); Immature Granulocytes % 0.1 % (0-4); Lymphocytes % 29.3 %; Mean Corpuscular HGB Conc 31.4 g/dL (31.6-35.5); Mean Corpuscular Hemoglobin 27.5 pg (28.0-33.3); Mean Corpuscular Volume 87.5 fL (83.0-100.0); Mean Platelet Volume 10.4 fL (9.4-12.4); Monocytes # 0.5 K/mcL (0.0-1.3); Monocytes % 7.9 %; Neutrophils # 3.5 K/mcL (1.6-8.9); Platelet Count 240 K/mcL (140-400); Red Blood Count 2.73 M/mcL (4.19-5.50); Red Cell Distribution Width 14.7 % (11.5-14.5); Segmented Neutrophils % 51.4 %
[2017-03-13 05:50] LABS: BUN/Creatinine Ratio 14 (6-26); Blood Urea Nitrogen 14 mg/dL (8-26); Calcium 8.9 mg/dL (8.6-10.8); Carbon Dioxide 28 mEq/L (19-29); Chloride 104 mEq/L (98-109); Glucose 99 mg/dL (70-99); Osmolality,Calculated 291 (280-300); Potassium 3.6 mEq/L (3.5-4.5); Sodium 140 mEq/L (136-145); eGFR For African Americans > 60 (> 60); eGFR For Non-African Americans > 60 (> 60)
[2017-03-13] MEDS ORDERED: Finasteride 5 MG TABLET PO SCH (09:00)
[2017-03-13] MEDS: Levofloxacin 500 MG/100 ML 500 MG/100 ML BAG IVPB SCH (09:46)
[2017-03-13] MEDS: Aspirin Enteric Coated 81 MG Tablet PO SCH (09:49)
--- NOTE | 2017-03-13 11:40 | Internal Med Progress Note ---
Date of Encounter: 03/13/17 Time of Encounter: 08:50 - Assessment and plan (1) Hematuria Current Visit: Yes Status: Acute Assessment and plan: Pt with buzz hematuria in the room. He reports dark urine and has been on Xarelto. He recently had anemia and received 2 units PRBCs. New UA this visit showed UTI and Xarelto has been held. Pt being treated with Levaquin and has been seen by urology, Dr. Alvarado, who stopped Xarelto and started Finasteride. Pt is to have TURP done for BPH, was waiting on clearance to stop anticoagulation by cardio, recent ablation for a-fib and is NSR. Qualifiers: Hematuria type: unspecified type Qualified Code(s): R31.9 - Hematuria, unspecified (2) Atrial fibrillation Current Visit: Yes Status: Chronic Assessment and plan: Recent ablation for a-fib, Xarelto has been stopped due to hematuria. Continue Rhythmol and metoprolol. Pt is NSR. Qualifiers: Atrial fibrillation type: paroxysmal Qualified Code(s): I48.0 - Paroxysmal atrial fibrillation (3) Essential hypertension Current Visit: Yes Status: Chronic Assessment and plan: Well controlled in inpt setting. Continue home medications. (4) JO (obstructive sleep apnea) Current Visit: Yes Status: Chronic Assessment and plan: Refusing CPAP. (5) Gross hematuria Current Visit: Yes Status: Acute Assessment and plan: Plan as above. (6) DVT prophylaxis Current Visit: Yes Status: Acute Assessment and plan: Xarelto stopped due to hematuria, LYNNE lewis ordered. (7) Anemia Current Visit: No Status: Acute Assessment and plan: Blood loss anemia. Pt reports GONZALEZ, fatigue, and dizziness with position change. Hgb 7.5 today, significant drop from yesterday 8.8. Pt is getting IVF, as well, but pt has buzz hematuria. Pt is symptomatic and requires transfusion of PRBC' s. Last transfusion 1 week ago. Qualifiers: Anemia type: unspecified type Qualified Code(s): D64.9 - Anemia, unspecified - Time Spent With Patient less than 15 minutes - Subjective Interval history: Pt was seen and assessed at 0850. He is alert and oriented, pleasant, [place]. He denies pain, states that he does have dizziness with position change and standing, and some GONZALEZ. Pt denies questions about POC and is agreeable to transfusion. - Constitutional Vitals: Temp Pulse Resp BP Pulse Ox 97.6 F 67 15 111/71 99 03/13/17 11:03/13/17 11:03/13/17 11:03/13/17 11:03/13/17 11:09 General appearance: Present: cooperative, A&O X 3, pleasant, no acute distress, answers questions appropriately - Head Head exam: Present: atraumatic, normal inspection, normocephalic - Eye Eye exam: Present: normal appearance, conjuntiva pink, sclera anicteric - Neck Neck exam general surgery: Present: normal inspection, supple, trachea midline. Absent: lymphadenopathy - Respiratory Respiratory exam: Present: CTAB. Absent: accessory muscle use, chest wall tenderness, decreased breath sounds, rales, rhonchi, wheezes - Cardiovascular Cardiovascular exam: Present: RRR, +S1, +S2. Absent: diastolic murmur, gallop, rubs, systolic murmur - GI/Abdominal GI/Abdominal exam: Present: normal bowel sounds, soft, no peritoneal signs. Absent: distended, hepatomegaly, tenderness - Extremities Exam Extremities exam: Present: normal inspection, warm, radial pulses palpable and symmetrical. Absent: calf tenderness, cyanotic, pedal edema - Neurological Exam Neurological exam: Present: alert, oriented X3, no focal deficits. Absent: facial droop, speech deficit - Skin Skin exam: Present: dry, intact, normal color, warm. Absent: rash Internal Medicine: Result - Labs CBC & Chem 7: 03/13/17 04:40 03/13/17 04:40 Labs: Short CBC 03/13/17 Range/Units 04:40 WBC 6.7 (4.3-11.1) K/mcL Hgb 7.5 L (12.9-16.9) g/dL Hct 23.9 L (37.5-50.1) % Plt Count 240 (140-400) K/mcL Neutrophils # 3.5 (1.6-8.9) K/mcL BMP 03/13/17 04:40 Sodium 140 Potassium 3.6 Chloride 104 Carbon Dioxide 28 BUN 14 Creatinine 1.01 Glucose 99 Calcium 8.9 - ABG Interpretation ABG results: PT/INR, D-dimer PT 11.7 Seconds (9.4-12.1) 03/12/17 18:54 Consult Discharge Plan - Plan Referrals: Ines Ramirez, ZAY [Primary Care Provider] -
[2017-03-13] MEDS ORDERED: 0.9 % Sodium Chloride 250 ML ONE (12:53)
--- NOTE | 2017-03-13 16:06 | Electrocardiograph Report ---
[place] [address] Test Date: 2017-03-12 Pat Name: Ant Gonzales Department: 102 Room: 3B Gender: M Rn Bone Marrow Transplant: : 1950 Requested By: Simone Johnson Order Number: [id number] Reading MD: Andrea Singh MD Measurements Intervals [place] Rate: 62 P: 75 OR: 194 QRS: -16 QRSD: 96 T: 9 QT: 421 QTc: 426 Interpretive Statements SINUS RHYTHM Electronically Signed On 03-13-2017 16:04:42 EDT by Andrea Singh MD
--- NOTE | 2017-03-13 17:53 | Event Note ---
Date of Encounter: 03/13/17 Time of Encounter: 17:52 Patient received 1 unit of blood and states he "already feels better " Although gross hematuria continues it has lightened compared to this mornings urine. Okay to continue without catheter or surgical intervention
[2017-03-13 18:51] LABS: Hematocrit 28.4 % (37.5-50.1)
[2017-03-13 18:56] LABS: Hemoglobin 9.1 g/dL (12.9-16.9)
[2017-03-13] MEDS: Finasteride 5 MG TABLET PO SCH (22:04)
[2017-03-14 06:37] LABS: Basophils % 0.4 %; Eosinophils # 0.8 K/mcL (0.0-0.6); Hematocrit 31.4 % (37.5-50.1); Hemoglobin 10.1 g/dL (12.9-16.9); Immature Granulocytes % 0.3 % (0-4); Lymphocytes # 2.2 K/mcL (0.6-4.6); Lymphocytes % 23.2 %; Mean Corpuscular HGB Conc 32.2 g/dL (31.6-35.5); Mean Platelet Volume 10.6 fL (9.4-12.4); Monocytes # 0.6 K/mcL (0.0-1.3); Monocytes % 6.4 %; Neutrophils # 5.6 K/mcL (1.6-8.9); Platelet Count 303 K/mcL (140-400); Red Blood Count 3.61 M/mcL (4.19-5.50); Red Cell Distribution Width 15.2 % (11.5-14.5); Segmented Neutrophils % 60.7 %
--- NOTE | 2017-03-14 07:01 | Urology Progress Note ---
Date of Encounter: 03/14/17 Time of Encounter: 06:59 - Assessment and Plan (1) Gross hematuria Current Visit: Yes Status: Acute Assessment and plan: The patient's hemoglobin has increased appropriately following transfusion. No evidence of continued significant blood loss. I am somewhat concerned that he reports that his hematuria has increased again overnight as it has been decreasing for the last 24 hours. We'll proceed with CT pelvis to rule out a large clot within the bladder. If the hematuria continues throughout the day we' ll need to place catheter and likely start CBI. At this point his urine culture is negative which indicates that hematuria was not from a UTI. Progress Note Narrative: Patient reports no pain. He reports an increase in his hematuria and states that it is darker overnight and it was yesterday. No clots. No difficulty voiding Objective Initial Vital Signs Temp Pulse Resp BP Pulse Ox 97.9 F 62 16 120/54 99 03/12/17 16:07 03/12/17 16:07 03/12/17 16:07 03/12/17 16:07 03/12/17 16:07 - General physical appearance Present: well developed, no distress - Additional Exam No urine present to visualize - Labs 03/14/17 05:39 03/13/17 04:40 Consult Discharge Plan - Plan Referrals: Ines Ramirez, COMBINATION OPERATOR [Primary Care Provider] -
[2017-03-14] MEDS: Aspirin Enteric Coated 81 MG Tablet PO SCH (09:12)
[2017-03-14] MEDS: Levofloxacin 500 MG/100 ML 500 MG/100 ML BAG IVPB SCH (09:12)
--- NOTE | 2017-03-14 17:13 | Event Note ---
Date of Encounter: 03/14/17 Time of Encounter: 17:12 ct scan without large clot. urine has cleared a lot during the day. Hgb stable likely ok with discharge in AM if hgb stable. do not restart xarelto if at all possible.
--- NOTE | 2017-03-14 17:34 | Internal Med Progress Note ---
Date of Encounter: 03/14/17 Time of Encounter: 08:55 - Assessment and plan (1) Hematuria Current Visit: Yes Status: Acute Assessment and plan: Pt with buzz hematuria. Pt being treated with Levaquin and has been seen by urology, Dr. Alvarado, who stopped Xarelto and started Finasteride. Urine culture negative, no growth. Levaquin has been stopped. Will continue to monitor urine and labs for anemia in the a.m. Pt had CT pelvis today to check for clot in the bladder. No clot, however this is a questionable area of high density in posterior diverticulum. CT pelvis with contrast ordered. Pelvis CT 03/14/17 09:30 IMPRESSION: 1. No large bladder clot is identified. No bladder stones. 2. Abnormal high density identified in the posterior aspect of the most posterior diverticulum, measuring 3.0 x 2.6 x 1.0 cm. Finding is incompletely evaluated on noncontrast study. Differential considerations include small residual clot versus malignancy. Finding appears worse since 11/02/2016. 3. Redemonstration of nonspecific irregular bladder wall thickening. 4. Moderate diverticulosis. D/ / 03/14/2017 11:01:03 Leny Krause MD / [email or web address] Interpreting Provider: Leny Krause MD Qualifiers: Hematuria type: unspecified type Qualified Code(s): R31.9 - Hematuria, unspecified (2) Atrial fibrillation Current Visit: Yes Status: Chronic Assessment and plan: Recent ablation for a-fib, Xarelto has been stopped due to hematuria. Continue Rhythmol and metoprolol. Pt is NSR. Qualifiers: Atrial fibrillation type: paroxysmal Qualified Code(s): I48.0 - Paroxysmal atrial fibrillation (3) Essential hypertension Current Visit: Yes Status: Chronic Assessment and plan: Well controlled in inpt setting. Continue home medications. (4) JO (obstructive sleep apnea) Current Visit: Yes Status: Chronic Assessment and plan: Refusing CPAP. Continue at home. (5) Gross hematuria Current Visit: Yes Status: Acute Assessment and plan: Plan as above. (6) DVT prophylaxis Current Visit: Yes Status: Acute Assessment and plan: Xarelto stopped due to hematuria, LYNNE debbie ordered. (7) Anemia Current Visit: No Status: Acute Assessment and plan: Blood loss anemia. Pt reports GONZALEZ, fatigue, and dizziness with position change. Hgb 10.1 today, Pt had transfusion yesterday, 1 unit PRBCs. Hgb has been steady after transfusion. If Hbg remains stable, will discharge in the a.m. Hold Xarelto. Qualifiers: Anemia type: unspecified type Qualified Code(s): D64.9 - Anemia, unspecified - Time Spent With Patient less than 15 minutes - Subjective Interval history: Pt was seen and assessed at 0855. He is alert and oriented, pleasant, [place]. He denies pain, dizziness, SOB. Pt still has hematuria, as evidenced by red urine in urinal. Denies abdominal pain. Pt states that he feels better after transfusion. Most likely will discharge in the morning if Hgb stable. - Constitutional Vitals: Temp Pulse Resp BP Pulse Ox 98.1 F 64 14 108/64 100 03/14/17 15:03/14/17 15:03/14/17 15:03/14/17 15:03/14/17 15:09 General appearance: Present: cooperative, A&O X 3, pleasant, no acute distress, answers questions appropriately - Head Head exam: Present: atraumatic, normal inspection, normocephalic - Eye Eye exam: Present: normal appearance, conjuntiva pink, sclera anicteric - Neck Neck exam general surgery: Present: supple, trachea midline. Absent: lymphadenopathy - Respiratory Respiratory exam: Present: CTAB. Absent: accessory muscle use, rales, rhonchi, wheezes - Cardiovascular Cardiovascular exam: Present: RRR, +S1, +S2. Absent: diastolic murmur, gallop, rubs, systolic murmur - GI/Abdominal GI/Abdominal exam: Present: normal bowel sounds, soft, no peritoneal signs. Absent: distended, hernia, hepatomegaly, tenderness - Extremities Exam Extremities exam: Present: normal inspection, warm, radial pulses palpable and symmetrical. Absent: calf tenderness, cyanotic, pedal edema, tenderness - Neurological Exam Neurological exam: Present: alert, oriented X3. Absent: facial droop, speech deficit - Skin Skin exam: Present: dry, intact, normal color, warm. Absent: rash Internal Medicine: Result - Labs CBC & Chem 7: 03/14/17 05:39 03/13/17 04:40 Labs: Short CBC 03/13/17 03/14/17 Range/Units 18:39 05:39 WBC 9.3 (4.3-11.1) K/mcL Hgb 9.1 L D 10.1 L (12.9-16.9) g/dL Hct 28.4 L 31.4 L (37.5-50.1) % Plt Count 303 (140-400) K/mcL Neutrophils # 5.6 (1.6-8.9) K/mcL - ABG Interpretation ABG results: PT/INR, D-dimer PT 11.7 Seconds (9.4-12.1) 03/12/17 18:54 - Impressions Impressions Pelvis CT 03/14/17 09:30 IMPRESSION: 1. No large bladder clot is identified. No bladder stones. 2. Abnormal high density identified in the posterior aspect of the most posterior diverticulum, measuring 3.0 x 2.6 x 1.0 cm. Finding is incompletely evaluated on noncontrast study. Differential considerations include small residual clot versus malignancy. Finding appears worse since 11/02/2016. 3. Redemonstration of nonspecific irregular bladder wall thickening. 4. Moderate diverticulosis. D/ / 03/14/2017 11:01:03 Leny Krause MD / [email or web address] Interpreting Provider: Leny Krause MD Consult Discharge Plan - Plan Referrals: Ines Ramirez, RECYCLING SORTER [Primary Care Provider] -
[2017-03-14] MEDS: Finasteride 5 MG TABLET PO SCH (22:31)
[2017-03-14] MEDS: traZODone 50 MG TABLET PO PRN (22:31)
[2017-03-15 05:19] LABS: Basophils % 0.4 %; Eosinophils # 0.6 K/mcL (0.0-0.6); Eosinophils % 6.8 %; Hemoglobin 8.8 g/dL (12.9-16.9); Immature Granulocytes % 0.4 % (0-4); Lymphocytes # 1.6 K/mcL (0.6-4.6); Lymphocytes % 19.5 %; Mean Corpuscular HGB Conc 31.4 g/dL (31.6-35.5); Mean Corpuscular Hemoglobin 26.8 pg (28.0-33.3); Mean Corpuscular Volume 85.4 fL (83.0-100.0); Mean Platelet Volume 10.1 fL (9.4-12.4); Monocytes # 0.6 K/mcL (0.0-1.3); Monocytes % 7.1 %; Neutrophils # 5.4 K/mcL (1.6-8.9); Platelet Count 253 K/mcL (140-400); Red Blood Count 3.28 M/mcL (4.19-5.50); Red Cell Distribution Width 14.9 % (11.5-14.5); Segmented Neutrophils % 65.8 %
--- NOTE | 2017-03-15 06:46 | Urology Progress Note ---
Date of Encounter: 03/15/17 Time of Encounter: 06:44 - Assessment and Plan (1) Gross hematuria Current Visit: Yes Status: Acute Assessment and plan: Gross hematuria has almost completely resolved. No need for surgical or catheter intervention. Incidentally his hemoglobin did drop from 10.1-8.8. He is not symptomatic. I do not feel this is from acute blood loss in the last 24 hours. Consider anemia of chronic disease or other source for the anemia. Okay with discharge from urology standpoint. He cannot restart the Xarelto. Follow- up with Dr. Resendiz in the next few weeks Progress Note Subjective: feels better Narrative: urine has almost completely cleared. Objective Initial Vital Signs Temp Pulse Resp BP Pulse Ox 97.9 F 62 16 120/54 99 03/12/17 16:07 03/12/17 16:07 03/12/17 16:07 03/12/17 16:07 03/12/17 16:07 - General physical appearance Present: no distress - Labs 03/15/17 05:03 03/13/17 04:40 Light very transparent pinkish urine Consult Discharge Plan - Plan Referrals: Ines Ramirez, MANAGER SPEECH [Primary Care Provider] -
[2017-03-15 09:16] LABS: Hematocrit 29.6 % (37.5-50.1); Hemoglobin 9.3 g/dL (12.9-16.9)
--- NOTE | 2017-03-15 10:53 | Discharge Summary ---
Date of Encounter: 03/15/17 Time of Encounter: 08:40 - Discharge Diagnosis (1) Hematuria Priority: Primary Status: Acute Comments: Pt has been seen by urology, will follow up in the office in the next few weeks. Hgb today is 9.3. Hematuria has almost completely resolved, pt states that it is significantly better than on arrival. Follow up with urology, Xarelto and ASA have been stopped, I have decreased Sertraline due to very minimal risk of bleeding, can increase as needed after bleeding has been asssessed. Qualifiers: Hematuria type: unspecified type Qualified Code(s): R31.9 - Hematuria, unspecified (2) Atrial fibrillation Priority: Secondary Status: Chronic Comments: Pt had ablation recently for a-fib. Xarelto and ASA have been stopped due to hematuria/anemia. Pt will need to follow up in the cardiology office for evaluatioin. Qualifiers: Atrial fibrillation type: paroxysmal Qualified Code(s): I48.0 - Paroxysmal atrial fibrillation (3) Essential hypertension Priority: Secondary Status: Chronic Comments: chronic. Continue home medications. (4) JO (obstructive sleep apnea) Priority: Secondary Status: Chronic Comments: CPAP at home. (5) Gross hematuria Priority: Secondary Status: Acute Comments: Plan as above. (6) DVT prophylaxis Priority: Secondary Status: Acute Comments: Pt has been ambulatory and LYNNE lewis ordered. (7) Anemia Priority: Secondary Status: Acute Comments: Pt was symptomatic with hgb 7.5. He has been transfused and is asymptomatic at this time, hgb was 10.1 after transfusion, fell to 9.3 today. Pt has had hematuria, however, it has almost completely resolved. Iron studies showed that on 03/05 Iron level and % sat were both decreased. I have started pt on Ferrous sulfate bid, encouraged pt to take it with food and vitamin c. B12 is WNL and folate has not been performed. I will have pt get another CBC on Saturday, in 2 days with results to PCP. I have discussed the case with Gómez Ayala CNP, and pt will be referred to heme/ onc to rule out anemia of chronic disease vs NIKITA vs acute blood loss anemia. Qualifiers: Anemia type: unspecified type Qualified Code(s): D64.9 - Anemia, unspecified - Discharge Medications Prescriptions: Docusate [Colace] 100 mg PO BID #60 capsule Ferrous Sulfate 325 mg PO BIDWM #60 tab Sertraline [Zoloft] 25 mg PO DAILY #30 tab Home Medications: Albuterol Sulfate [Albuterol Inhaler] 2 puff IH Q4H PRN 03/01/16 [History] Indapamide [Lozol] 1.25 mg PO DAILY 03/01/16 [History] Sertraline [Zoloft] 50 mg PO DAILY 03/01/16 [History] Allopurinol [Zyloprim] 300 mg PO DAILY 10/31/16 [History] Montelukast [Singulair] 10 mg PO DAILY 10/31/16 [History] Potassium Chloride [Klor-Con 10] 10 meq PO BID 10/31/16 [History] Trazodone HCl 100 mg PO HS PRN 10/31/16 [History] Albuterol Neb [Proventil Neb] 2.5 mg IH TID PRN 12/11/16 [History] Finasteride [Proscar] 5 mg PO DAILY 12/11/16 [History] Metoprolol [Lopressor] 25 mg PO BID 03/05/17 [History] Propafenone HCl 300 mg PO Q8H 03/05/17 [History] Aspirin Enteric Coated [Aspirin EC] 81 mg PO DAILY 03/08/17 [Rx] Omeprazole [PriLOSEC] 20 mg PO DAILY #30 03/08/17 [Rx] Levothyroxine [Synthroid] 50 mcg PO 0630 03/12/17 [History] Rivaroxaban [Xarelto] 20 mg PO Q48H 03/12/17 [History] Docusate [Colace] 100 mg PO BID #60 capsule 03/15/17 [Rx] Ferrous Sulfate 325 mg PO BIDWM #60 tab 03/15/17 [Rx] Sertraline [Zoloft] 25 mg PO DAILY #30 tab 03/15/17 [Rx] Allergies/Adverse Reactions: 3 Allergy/AdvReac Type Severity Reaction Status Date / Time cephalexin [From Keflex] Allergy Swelling Verified 03/12/17 16:09 of Lip/Tongue/Throat acetaminophen [From Tylenol] AdvReac See Verified 03/12/17 16:09 Comments Procedures/tests Complete & Pending: Procedures Performed prior 72 hours Category Date Time Status CT abd pelvis w iv no oral [CT] Routine Cat Scan 03/14/17 18:[address] pelvis wo no iv no oral [CT] Routine Cat Scan 03/14/17 09:30 Completed Date of admission: 03/13/17 18:01 Primary care physician: Ines Ramirez CNP Discharging clinician: Desi Brown Anticipated date of discharge: 03/15/17 - Patient Status Disposition: Home, Self-Care Condition: Good Functional capacity at discharge: independent ambulation Overall status at discharge: patient is progressing back to baseline - Discharge Instructions Follow Up With: nIes Ramirez CNP [Primary Care Provider] - Additional Instructions: Follow up with PCP as scheduled Have your labs drawn on Saturday, your PCP will get the results and review. Start taking your Iron supplements daily, take with vitamin c and take colace to prevent constipation. Follow up with hematology as scheduled for evaluation of anemia. Do not start taking your Xarelto or aspirin again until you are cleared to start them again. Follow up with cardiology for evaluation for need for anticoagulation. Start your new dose of sertraline, I have discussed this with your PCP. You can increase it later if needed. Return to the ER as needed for any other problems or concerns. - Diet and Activity Activity: increase activity as tolerated Diet: advance to your usual diet Hospital course: Mr. Gonzales is a 67 year old male with pmh of A. fib with recent ablation, hypertension, asthma, depression, sleep apnea, area, BPH and urinary retention, hypothyroidism, anemia, and hematuria. Pt presented to the ED with buzz hematuria for several days prior to arrival. Recent admission for same, he received 2 units of blood and had a negative colonoscopy. He reported urgency and dysuria, without fever or chills. Hgb dropped this visit to 7.5, pt was symptomatic, received another unit of PRBCs. Hgb 10.1 yesterday, 9.3 today. Pt and urology state that hematuria has resolved. His ASA, Xarelto have been stopped, Sertraline has been d/c'd due to minimal risk of bleeding associated with SSRIs. Pts CT showed diffuse bladder wall thickening, intermiediate attenuation along the posterior wall of the posterior diverticulum. Pt has had a cystoscopy for same in the past, urology is aware and recommend no further treatment at this time. I have spoken with his PCP regarding pt's anemia and medication changes. I am ordering an outpatient CBC for Saturday with results to PCP. He will also be seen by hematology oncology next week for evaluation of anemia. Iron is low and % saturation is also low, so I have started Ferrous Sulfate 325mg po bid to be taken with meals and vitamin C supplements. He will also have a prescription for a stool softener. Pt states that he feels well and has no needs. He is aware of plan of care and states that he is ready to go home. 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 Pt is ready for discharge. - Time Spent with Patient Total time spent providing and/or coordinating discharge services: Greater than 30 minutes - Constitutional Vitals: Temp Pulse Resp BP Pulse Ox 98.1 F 60 18 90/60 95 03/15/17 08:08 03/15/17 08:08 03/15/17 08:08 03/15/17 08:08 03/15/17 06:46 General appearance: Present: cooperative, A&O X 3, pleasant, no acute distress, answers questions appropriately - Head Head exam: Present: atraumatic, normal inspection, normocephalic - Eye Eye exam: Present: conjuntiva pink, sclera anicteric - Neck Neck exam general surgery: Present: supple, trachea midline. Absent: lymphadenopathy, tenderness - Respiratory Respiratory exam: Present: CTAB. Absent: accessory muscle use, rales, rhonchi, wheezes - Cardiovascular Cardiovascular exam: Present: RRR, +S1, +S2. Absent: diastolic murmur, gallop, rubs, systolic murmur - GI/Abdominal GI/Abdominal exam: Present: normal bowel sounds, soft, no peritoneal signs. Absent: distended, hepatomegaly, tenderness - Extremities Exam Extremities exam: Present: normal capillary refill, normal inspection, warm, radial pulses palpable and symmetrical. Absent: calf tenderness, cyanotic, pedal edema - Neurological Exam Neurological exam: Present: alert, oriented X3, no focal deficits. Absent: facial droop, speech deficit - Skin Skin exam: Present: dry, intact, normal color, warm. Absent: rash
[2017-03-15 10:56] VITALS: BP 121/63
== END 2017-03-15 14:07 | disposition home or self-care (01) | DRG 690 ==
LOC: EMEROO 16:00 → 3BNU 16:00
PROVIDERS: ADMIT Family Medicine; ATTEND Registered Nurse